=== PATIENT | female | born 2005 | race Caucasian/White ===

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

== ENCOUNTER 2025-06-05 19:14 | Emergency (ER) | payer BC, SELFPAY ==
[2025-06-05 19:15] VITALS: BP 127/90; PULSE 100; RESP 18; TEMP 36.8; O2SAT 99; BMI 38.7
[2025-06-05] MEDS: Ketorolac 30 MG/ML Syringe IM (20:46)
--- OUTSIDE RECORDS SUMMARY | 2025-06-05 21:01 | XMS RPT_ITS | CCD ---
Author Organization [facility] Care Team Providers Care Gateman Name Role Phone NATALY THORPE DO Primary Care Physician [phone] Nataly Thorpe DO Primary Care Provider [phone] Nataly Thorpe DO Primary Care Provider NATALY THORPE Primary Care Unavailable CARISA REECE Attending Unavailable CARISA REECE Referring Unavailable CARISA REECE Attending Unavailable NATALY THORPE Primary Care Unavailable CARISA REECE Referring Unavailable CARISA REECE Attending Unavailable NATALY THORPE Primary Care Unavailable OREN REECEANDA Jeffy Referring Unavailable NATALY THORPE Primary Care Unavailable CARISA REECE Attending Unavailable OREN REECEANDA Jeffy Referring Unavailable NATALY THORPE Primary Care Unavailable LUIZ ANAYA Referring Unavailable CARISA REECE Attending Unavailable NATALY THORPE Primary Care Unavailable LUIZ ANAYA Attending Unavailable LUIZ ANAYA Referring Unavailable LOYDA MENA Attending Unavailab NATALY Roa DO Primary Care Unavailable NAGI STEPHENS DO Attending Unavailable NATALY THORPE DO Primary Care Unavailable ALCON MARTIN MD Attending Unavail able NATALY THORPE DO Primary Care Unavailable BOLA TERRAZAS DO Attending Unavailable NATALY THORPE DO Primary Care Unavailable RICH NEWTON Attending UnavailNATALY Escalante DO Primary Care Unavailable ELLIOT VÁZQUEZ Attending NATALY Lambert DO Primary Care Unavailable LOYDA MENA Attending Unavailab le MAURILIO DO, NATALY Primary Care Unavailable Maurilio , Nataly F Primary Care Provider NATALY THORPE F Primary Care Unavailable NATALY THORPE F Primary Care Unavailable NATALY THORPE F Primary Care Unavailable Maurilio NAIK, Dr. Rodriguez Primary Care Provider [phone] Aruna NAIK, Dr. Knapp Emergency Provider [phone] Aruna NAIK, Dr. Knapp Attending Provider [phone] Maurilio NAIK, Dr. Rodriguez Referring Provider April García Attending Provider [phone] April García Referring Provider [phone] Tim Matias Attending Provider [phone] Maurilio, Nataly Primary Care Unavailable April García Attending Unavailable Maurilio, Nataly Referring Unavailable Maurilio, Nataly Primary Care Unavailable April García Referring Unavailable April García Attending Unavailable Maurilio, Nataly Primary Care Unavailable Ra Valdovinos Attending Unavailable Maurilio, Nataly Referring Unavailable Maurilio, Nataly Primary Care Unavailable Tim Matias Attending Unavailable DITCHEY LUPILLO NAIK Primary Care Physician NHUNGTCHEY DO, LUPILLO M Primary Care Unavailable GURPREET RYAN, AIDAN Amin Attending Fiorella lable MAURILIO DO, NATALY Primary Care Unavailable MAURILIO DONATALY Attending Unavailable DITCHEY DOLUPILLO Attending Unavailable MAURILIO DO, NATALY Primary Care Unavailable DITCHEY DO, LUPILLO M Primary Care Unavailable DITCHEY DO, LUPILLO M Attending Unavailable ELLIOT VÁZQUEZ Attending Unavai lable MAURILIO DO, NATALY Primary Care Unavailable ROBINAESKA JERICHO NAIK Attending Unavailable MAURILIO DO, NATALY Primary Care Unavailable DITCHEY DO, LUPILLO M Attending Unavailable MAURILIO DO, NATALY Primary Care Unavailable DITCHEY DO, LUPILLO M Primary Care Unavailable LOYDA MENA Attending Unavailab le DITCHEY DOLUPILLO Attending Unavailable DITCHEY DOLUPILLO M Primary Care Unavailable Allergies Allergy Classification Reported Allergen(s) Allergy Type Date of Onset Reaction(s) Facility (20 sources) Coconut extract; Translations: [COCONUT] Drug All[facility] 10-[facility]-201 [facility] ([facility]) [place] Food allergy Itching (finding) [facility] (6 sources) peach allergenic extract; Translations: [PRUNUS PERSICA] Drug Allergy 3 [facility]ching [facility] (2 sources) tree nut, unspecified; Translations: [TREE NUT ALLERGY] Propensity to adverse reactions 8 Itching [facility] (1 source) peach allergenic extract; Translations: [PEACH (PRUNUS PERSICA)] Drug Allergy 3 [facility] (3 sources) Food Allergies: Uncoded; Translations: [Food Allergies: Uncoded] Allergy to substance 5 itchy [facility] Comment on above: Peaches NEGATED: Highlighted row has been ruled out! (1 source) Drug allergy [facility] NEGATED: Highlighted row has been ruled out! (1 source) Drug allergy [facility] NEGATED: Highlighted row has been ruled out! (1 source) Drug allergy [facility] Medications Current Medications Medication Drug Class(es) Dates Sig (Normalized) Sig (Original) Tylenol (5 sources) Start: 10-16-2024 Tylenol Oral, 0 Refill(s) Start Date: 10/16/24 Status: Ordered Medication Dispense Status: Completed Total Allowed Fills: 1 Fills Dispensed: 0 Start: 10-16-2024 Tylenol Oral, 0 Refill(s) Start Date: 10/16/24 Status: Ordered Repeat number: 1 brompheniramine maleate 0.4 mg/ml / dextromethorphan hydrobromide 2 mg/ml / pseudoephedrine hydrochloride 6 mg/ml oral solution (2 sources) alpha-Adrenergic Agonist, Uncompetitive F-pugeue-J-aspartate Receptor Antagonist, Sigma-1 Agonist Start: 08-02-2024 take 5 mL by mouth four times daily as needed Yhbjcztmubrltqs-Yijeaejto-HL (BROMFED DM) 2-30-10 mg/5 mL syrup Indications: Viral URI with cough , Fever, unspecified fever cause Take 5 mL by mouth four times a day as needed. 118 mL 08/02/2024 Active cyclobenzaprine hydrochloride 10 mg oral tablet (2 sources) Muscle Relaxant Start: 10-16-2024 cyclobenzaprine 10 mg oral tablet Dose : 10 mg = 1 tab(s), Oral, TID, PRN for spasm, # 30 tab(s), 0 Refill(s), Pharmacy: [facility]/pharmacy #[id number], Lumbar back pain, 168, cm, 10/16/24 9:31:00 EDT, Height, kg, 10/16/24 9:31:00 EDT, Dosing Weight Start Date: 10/16/24 Status: Ordered Quantity: 30.0 Unit: tab(s) Repeat number: 1 Indications: Low back pain, unspecified; Start: 06-21-2023 End: 06-26-2023 cyclobenzaprine 5 mg oral ta blet Dose : 5 mg = 1 tab(s), Oral, TID, X 5 day(s), # 15 tab(s), 0 Refill(s), 06/26/23 8:37:00 AM EST Start Date: 06/21/23 Stop Date: 06/26/23 Status: Ordered diclofenac sodium 75 mg delayed release oral tablet (1 source) Nonsteroidal Anti-inflammatory Drug Start: 02-07-2024 diclofenac sodium 75 mg oral delayed release tablet Dose : 75 mg = 1 tab(s), Oral, BID, # 60 tab(s), 0 Refill(s), Pharmacy: [facility]/pharmacy #[id number], Contusion of left forearm, 165.5, cm, 02/07/24 10:43:00 EDT, Height, kg, 02/07/24 10:43:00 EDT, Dosing Weight Start Date: 02/07/24 Status: Ordered doxycycline hyclate 100 mg oral capsule (1 source) Tetracycline-class Drug Start: 11-07-2023 End: 11-14-2023 doxycycline hyclate 100 mg oral capsule Dose : 100 mg = 1 cap(s), Oral, BID, X 7 day(s), # 14 cap(s), 0 Refill(s), 11/14/23 3:51:00 PM EDT, Pharmacy: [facility] #[id number], Chlamydia, 166, cm, 11/02/23 16:50:00 EDT, Height, 71.6, kg, 11/02/23 16:50:00 EDT, Dosing Weight Start Date: 11/07/23 Stop Date: 11/14/23 Status: Ordered elderberry gummies (2 sources) Start: 04-06-2021 elderberry gummies elderberry gummies, 0 Refill(s), 67.6 Start Date: 04/06/21 Status: Ordered emergen c (2 sources) Start: 04-06-2021 emergen c emergen c, 0 Refill(s), 67.6 Start Date: 04/06/21 Status: Ordered fexofenadine hydrochloride 180 mg oral tablet (20 sources) Histamine-1 Receptor Antagonist Start: 09-18-2020 Erica 24 Hour Allergy oral tablet Dose : 180 mg = 1 tab(s), Oral, Daily, PRN for allergy symptoms, # 10 tab(s), 0 Refill(s) Start Date: 08/15/22 Status: Ordered Medication Dispense Status: Completed Quantity: 10.0 Unit: tab(s) Total Allowed Fills: 1 Fills Dispensed: 0 Comment on above: 180 mg. fludrocortisone acetate 0.1 mg oral tablet (7 sources) Start: 10-29-2024 take 1 tablet by mouth three times weekly Fludrocortisone 0.1 mg tablet Active 0.1 mg PO 3 TIMES A WEEK October 29, 2024 12:00am Start: 06-02-2023 fludrocortison e 0.1 mg oral tablet Dose : 0.1 mg = 1 tab(s), Oral, Daily, # 30 tab(s), 0 Refill(s) Start Date: 06/02/23 Status: Ordered fluticasone propionate 0.05 mg/actuat metered dose nasal spray (3 sources) Corticosteroid Start: 02-17-2025 End: 03-19-2025 take 100 ug nasal route once daily fluticasone 50 mcg/inh NASAL spray 100 mcg Dose = 2 spray(s), Nostril, each, qDay, shake well before using, # 16 gram(s), 0 Refill(s), Pharmacy: [facility]/pharmacy #[id number], Viral URI, 167, cm, 08/25/25 9:02:00 EDT, Height, kg, 02/17/25 9:02:00 EDT, Dosing Weight Start Date: 02/17/25 Stop Date: 03/19/25 Status: Ordered Medication Dispense Status: Completed Quantity: 16.0 Unit: g Total Allowed Fills: 1 Fills Dispensed: 0 Indications: Acute upper respiratory infection, unspecified; Melatonin (10 sources) Start: 02-06-2025 melatonin 0 Refill(s) Start Date: 02/06/25 Status: Ordered Medication Dispense Status: Completed Total Allowed Fills: 1 Fills Dispensed: 0 Start: 10-29-2024 Melatonin 5 mg capsule Active mg PO October 29, 2024 12:00am MELATONIN ORAL T jase by mouth. as necessary Active MELATONIN ORAL T jase by mouth. as necessary 0 Active Comment on above: Take by mouth. as ne cessary naproxen 250 mg oral tablet (1 source) Nonsteroidal Anti-inflammatory Drug Start: 06-21-2023 End: 06-26-2023 naproxen 250 mg oral tablet Dose : 250 mg = 1 tab(s), Oral, BID, X 5 day(s), # 10 tab(s), 0 Refill(s), 06/26/23 8:36:00 AM EST Start Date: 06/21/23 Stop Date: 06/26/23 Status: Ordered nitrofurantoin, macrocrystals 25 mg / nitrofurantoin, monohydrate 75 mg oral capsule (1 source) Nitrofuran Antibacterial Start: 10-10-2023 End: 10-15-2023 Macrobid 100 mg oral capsule Dose : 100 mg = 1 cap(s), Oral, BID, Take with food, X 5 day(s), # 10 cap(s), 0 Refill(s), 10/15/23 1:32:00 PM EDT, Pharmacy: [facility] #[id number], UTI (urinary tract infection), 165, cm, 10/10/23 13:00:00 EDT, Height, 70.8, kg, 10/10/23 13:00:00 EDT, Dosing Weight Start Date: 10/10/23 Stop Date: 10/15/23 Status: Ordered omeprazole 40 mg delayed release oral capsule (2 sources) Proton Pump Inhibitor Start: 02-06-2025 omeprazole 40 mg oral delayed release capsule Dose : 40 mg = 1 cap(s), Oral, qDay, # 90 cap(s), 3 Refill(s), Pharmacy: [facility], GERD without esophagitis, 166.9, cm, 02/06/25 14:16:00 EDT, Height, kg, 02/06/25 14:16:00 EDT, Dosing Weight Start Date: 02/06/25 Status: Ordered Medication Dispense Status: Completed Quantity: 90.0 Unit: cap(s) Total Allowed Fills: 4 Fills Dispensed: 0 Indications: Gastro-esophageal reflux disease without esophagitis; 12 hr orphenadrine citrate 100 mg extended release oral tablet (1 source) Muscle Relaxant Start: 06-28-2023 End: 07-05-2023 orphenadrine 100 mg oral tablet, extended release Dose : 100 mg = 1 tab(s), Oral, BID, PRN as needed for pain, X 7 day(s), # 14 tab(s), 0 Refill(s), 07/05/23 8:58:00 AM EST, Pharmacy: [facility] #[id number], Right shoulder pain Cervicalgia, 165, cm, 06/28/23 8:04:00 EST, Height, kg, 06/28/23 8:04:00 EST, Dosing Weight Start Date: 06/28/23 Stop Date: 07/05/23 Status: Ordered oxymetazoline hydrochloride 0.5 mg/ml nasal spray (2 sources) Start: 08-02-2024 oxymetazoline (AFRIN, OXYMETAZOLINE,) 0.05 % nasal spray Indications: Viral URI with cough , Fever, unspecified fever cause Use 2-3 Sprays in each nostril two times a day. Use as directed. For a maximum of 3 (three) days. 22 mL 08/02/2024 Active predniSONE 10 mg oral tablet (2 sources) Start: 02-28-2025 predniSONE 10 mg oral tablet See Instructions, 60 mg Oral qDay x1day, then 50mg x1day, then 40mg x1day, then 30mg x1day, then 20mg x1day, then 10 mg x1day., # 21 tab(s), 0 Refill(s), Pharmacy: [facility]/pharmacy #[id number], Left shoulder pain Radiculopathy of arm, 167, cm, 02/28/25 15:08:00 EDT, Height, kg, 02/28/25 15:08:00 EDT, Dosing Weight Start Date: 02/28/25 Status: Ordered Medication Dispense Status: Completed Quantity: 21.0 Unit: tab(s) Total Allowed Fills: 1 Fills Dispensed: 0 Indications: Radiculopathy, site unspecified; Pain in left shoulder; Start: 06-28-2023 End: 07-03-2023 predniSONE 20 mg oral tablet Dose : 40 mg = 2 tab(s), Oral, qDay, Take with food, X 5 day(s), # 10 tab(s), 0 Refill(s), 07/03/23 8:58:00 AM EST, Pharmacy: [facility] #[id number], Right shoulder pain Cervicalgia, 165, cm, 06/28/23 8:04:00 EST, Height, kg, 06/28/23 8:04:00 EST, Dosing Weight Start Date: 06/28/23 Stop Date: 07/03/23 Status: Ordered raNITIdine (15 sources) Histamine-2 Receptor Antagonist Start: 06-20-2022 Zantac 360 Oral, as needed., 0 Refill(s) Start Date: 06/20/22 Status: Ordered RANITIDINE HCL ( ZANTAC 75 ORAL) Take by mouth. as necessary Active take 1 tablet by aysha th once daily as needed for gastroesophageal reflux disease ranitidine (ZANTAC) 75 MG tablet Take 1 Tablet (75 mg) by mouth daily as needed for Heartburn 0 Active RANITIDINE HCL ( ZANTAC 75 ORAL) Take by mouth. as necessary 0 Active Comment on above: Take by mouth. as ne cessary Walking boot, concise (1 source) Start: 02-20-2024 Walking boot, concise See Instructions, Dispense 1 walking boot of appropriate size for left foot., # 1 EA, 0 Refill(s), Pharmacy: [id number], Sprain of left ankle, 165.5, cm, 02/20/24 15:14:00 EDT, Height, 77.7, kg, 02/20/24 15:14:00 EDT, Dosing Weight Start Date: 02/20/24 Status: Ordered Zinc (2 sources) Start: 04-06-2021 take 1 mg by mouth once daily Zinc mg =, Oral, qDay, 0 Refill(s) Start Date: 04/06/21 Status: Ordered Completed/Discontinued Medications Medication Drug Class(es) Dates Sig (Normalized) Sig (Original) bacitracin 0.5 unt/mg topical ointment (2 sources) Start: 07-12-2024 End: 07-12-2024 bacitracin 500 unit/gram 1 Packet Start: 07-12-2024 End: 07-12-2024 1 Packet, TOPICAL, ONCE, 1 d ose, On Mon07/12/24 at 1600, FOR EXTERNAL USE ONLY APPLY TO: right index finger Ethinyl Estradiol / norgestimate (5 sources) Progestin, Estrogen Start: 04-12-2021 End: 07-12-2024 ESTARYLLA 0.25-35 mg-mcg per tablet 04/12/2021 07/12/2024 Discontinued (Course of therapy completed) Start: 04-12-2021 ESTARYLLA 0.25 -35 mg-mcg per tablet Start: 03-22-2021 take 1 tablet by aysha once daily ethinyl estradiol-norgestimate 35 mcg-0.25 mg oral tablet Dose = 1 tab(s), Oral, qDay, # 30 tab(s), 0 Refill(s), Pharmacy: [address], Contraception management Acne, 165, cm, 02/22/21 15:29:00 EDT, Height, kg, 02/22/21 15:29:00 EDT, Dosing Weight Start Date: 03/22/21 Status: Ordered ethosuximide 250 mg oral capsule (2 sources) Anti-epileptic Agent End: 07-12-2024 take 1 capsule by mouth twice daily ethosuximide (ZARONTIN) 250 mg capsule Take 250 mg by mouth twice daily. 07/12/2024 Discontinued (Course of therapy completed) Comment on above: Take 250 mg by mouth twice daily. ISOtretinoin 30 mg oral capsule (3 sources) Retinoid Start: 04-28-2021 End: 07-12-2024 take 1 capsule by mouth once daily ISOtretinoin 30 mg capsule take 1 capsule by mouth once daily WITH FATTY FOODS 04/28/2021 07/12/2024 Discontinued (Course of therapy completed) Comment on above: take 1 capsule by mo uth once daily WITH FATTY FOODS spironolactone 100 mg oral tablet (5 sources) Aldosterone Antagonist Start: 12-30-2020 End: 07-12-2024 spironolactone (ALDACTONE) 100 mg tablet 100 mg. 12/30/2020 07/12/2024 Discontinued (Course of therapy completed) Comment on above: 100 mg. Problems Active Problems Problem Classification Problem Date Documented Date Episodic/Chronic Adjustment disorders (2 sources) Adjustment disorder with mixed disturbance of emotions AND conduct; Translations: [Adjustment disorder with mixed disturbance of emotions and conduct] Onset: 09-26-2017 09-26-2017 Chronic Attention-deficit, conduct, and disruptive behavior disorders (1 source) Disruptive behavior disorder; Translations: [Conduct disorder, unspecified] Onset: 09-26-2017 09-26-2017 Chronic Cardiac dysrhythmias (2 sources) Postural orthostatic tachycardia syndrome ; Translations: [Postural orthostatic tachycardia syndrome] 10-29-2024 Chronic Conditions associated with dizziness or vertigo (1 source) Dizziness; Translations: [Dizziness and giddiness] 01-19-2023 Episodic E Codes: Unspecified (3 sources) Accident while engaged in work-related activity; Translations: [Civilian activity done for income or pay] 10-22-2024 Episodic Epilepsy; convulsions (6 sources) Epilepsy 06-18-2024 Chronic Epilepsy; convulsions (13 sources) Seizure disorder 01-03-2019 Episodic Esophageal disorders (3 sources) Gastroesophageal reflux disease without esophagitis 02-06-2025 Chronic Fever of unknown origin (2 sources) Fever; Translations: [Fever, unspecified] 07-28-2024 Episodic Immunizations and screening for infectious disease (4 sources) Encounter for screening for infections with a predominantly sexual mode of transmission; Translations: [Requires a tetanus booster] Onset: 11-03-2023 Episodic Miscellaneous mental health disorders (1 source) Mental disorder; Translations: [Mental disorder, not otherwise specified] Onset: 12-18-2019 12-18-2019 Chronic Neoplasms of unspecified nature or uncertain behavior (19 sources) Thrombocytosis 12-30-2020 Chronic Open wounds of extremities (1 source) Puncture wound of index finger of right hand; Translations: [Puncture wound without foreign body of right index finger without damage to nail, initial encounter] 07-12-2024 Episodic Other connective tissue disease (1 source) Plantar fascial fibromatosis; Translations: [Plantar fascial fibromatosis] Onset: 02-25-2024 Episodic Other connective tissue disease (1 source) Pain in finger of right hand; Translations: [Pain in right finger(s)] Onset: 08-17-2024 Episodic Other connective tissue disease (6 sources) Pain in finger 08-17-2024 Episodic Other inflammatory condition of skin (12 sources) Pityriasis rosea 01-29-2019 Chronic Other injuries and conditions due to external causes (1 source) Unspecified injury of unspecified lower leg, initial encounter; Translations: [Unspecified injury of unspecified lower leg, initial encounter] Onset: 10-27-2024 Episodic Other nervous system disorders (20 sources) Tremor 01-03-2019 Episodic Other non-traumatic joint disorders (12 sources) Decreased range of toe movement 12-30-2020 Episodic Other skin disorders (19 sources) Acne 09-18-2020 Episodic Other upper respiratory disease (1 source) Nasal congestion; Translations: [Nasal congestion] 07-28-2024 Episodic Other upper respiratory infections (20 sources) Sore throat symptom; Translations: [Acute pharyngitis, unspecified] Onset: 03-02-2023 Episodic Residual codes; unclassified (14 sources) Insomnia 07-13-2022 Episodic Residual codes; unclassified (2 sources) Immunization due 07-17-2023 Episodic Residual codes; unclassified (1 source) Pain, unspecified; Translations: [Pain, unspecified] Onset: 11-08-2024 Episodic Spondylosis; intervertebral disc disorders; other back problems (13 sources) Neck pain; Translations: [Low back pain] 02-07-2024 Episodic Sprains and strains (12 sources) Sprain of talofibular ligament of right ankle; Translations: [Sprain of other ligament of right ankle, subsequent encounter] Onset: 01-25-2018 01-25-2018 Episodic Unclassified (20 sources) Patient encounter status 09-18-2020 Unclassified (2 sources) Well female adolescent 07-07-2021 Unclassified (7 sources) Pain of right shoulder region 06-28-2023 Unclassified (1 source) Injury of shoulder and/or upper arm 02-07-2024 Unclassified (1 source) Sprain of left ankle 02-20-2024 Unclassified (4 sources) Sprain of right ankle; Translations: [S93.401A - Sprain of unspecified ligament of right ankle, initial encounter] Viral infection (6 sources) Verruca vulgaris 06-18-2024 Episodic Past or Other Problems Problem Classification Problem Date Documented Da te Episodic/Chronic Genitourinary symptoms and ill-defined conditions (2 sources) Painful micturition, unspecified; Translations: [Painful micturition, unspecified] Onset: 11-03-2023 Episodic Other inflammatory condition of skin (2 sources) Pruritus ani; Translations: [Pruritus ani] Onset: 11-21-2024 Episodic Other non-traumatic joint disorders (5 sources) Instability of joint of right ankle; Translations: [Other instability, right ankle] Onset: 01-25-2018 01-25-2018 Episodic Results Test Name Value Interpretation Reference Range Facility XR SPINE CERVICAL AP/LATon 0 03-08-2025 XR SPINE CERVICAL AP/LAT ORIGINAL EXAMINATION: TWO XRAY VIEWS OF THE CERVICAL SPINE 03/07/2025 9:48 am COMPARISON: None. HISTORY: ORDERING SYSTEM PROVIDED HISTORY: Reason for Exam: neck pain FINDINGS: There is no evidence of acute fracture. There is normal alignment. No acute joint abnormality. No focal osseous lesion. No focal soft tissue abnormality. IMPRESSION: No acute osseous abnormality. Interpreted by: Rob Griffin DO Preliminary Report By: Rob Griffin DO Electronically signed By Rob Griffin DO Dictated Date: 03/08/2025 9:02:44 AM Prelim Date: 03/08/2025 9:02:56 AM Sign Date: 03/08/2025 9:02:56 AM Ordering Provider: LUPILLO Harrington [facility] XR SHOULDER MINIMUM 2 VIEWS LEFTon 03-01-2025 XR SHOULDER MINIMUM 2 VIEWS LEFT ORIGINAL EXAMINATION: TWO XRAY VIEWS OF THE LEFT SHOULDER 02/28/2025 4:28 pm COMPARISON: None. HISTORY: ORDERING SYSTEM PROVIDED HISTORY: Reason for Exam: left shoulder pain, radiculopathy left arm FINDINGS: No evidence of fracture, or osseous malalignment, or arthritic process at the left shoulder including glenohumeral joint and the left AC joint. IMPRESSION: Normal radiographs of left shoulder. Interpreted by: Terry Horne Preliminary Report By: Terry Horne Electronically signed By Terry Horne Dictated Date: 03/01/2025 4:34:29 AM Prelim Date: 03/01/2025 4:36:39 AM Sign Date: 03/01/2025 4:36:39 AM Ordering Provider: AIDAN VÁZQUEZ Normal [facility] CVAracely 02-17-2025 FLU A PCR Negative Normal Negative [facility] Comment on above: Performed By: #### C VFLURV, STREPA #### [place] [address] FLU B PCR Negative Normal Negative [facility] Comment on above: Performed By: #### C VFLURV, STREPA #### [address] [address] RSV PCR Negative Normal Negative [facility] Comment on above: Performed By: #### C VFLURV, STREPA #### [place] [address] SARS-CoV-2 (COVID-19) RNA AMRIT+probe Ql (Unsp spec) Negative Normal Negative [facility] Comment on above: Result Comment: Resu lts from the Xpert Xpress CoV-2/Flu/RSV plus test should be correlated with the clinical history, epidemiological data, and other data available to the clinical evaluating the patient. Performance of the Xpert Xpress CoV-2/Flu/RSV plus test has only been established in nasopharyngeal swab specimen. Erroneous test results might occur from improper specimen collection, failure to follow the recommended sample collection, handling and storage procedures, technical error, or sample mix-up. False negative results may occur if a virus is present at a level below the analytical limit of detection. Viral nucleic acid may persist in vivo, independent of virus viability. Detection of analyte target(s) does not imply that the corresponding virus(es) are infectious or are the causative agents for clinical symptoms. Recent patient exposure to FluMist or other live attenuated influenza vaccines may cause inaccurate positive results. Performed By: #### C VFLURV, STREPA #### [address] [place] [address] LABORATORYOrdered By: Norman mckinney on 02-17-2025 FLUAV RNA AMRIT+probe Ql (Resp) Negative (02/17/25 9:23 AM) Normal AO Auto Urine SS FLUBV RNA AMRIT+probe Ql (Resp) Negative (02/17/25 9:23 AM) Normal AO Auto Urine SS Group A Strep PCR Int See Interp 2 *NA* (02/17/25 9:23 AM) Invalid Interpretation Code AO Auto Urine SS Comment on above: Result Comment: Clinical Interpretation: Negative Results: Negative for Streptococcus pyogenes by PCR. A negative test result does not exclude the possibility of infection because the test result may be affected by improper specimen collection, technical error, sample mix-up, or because the number of organisms in the sample is below the limit of detection of the test. The Xpert Xpress Strep A test should not be used as the sole basis for treatment or other patient management decisions. The Xpert Xpress Strep A test does not differentiate asymptomatic carriers of Group A streptococci from those exhibiting streptococcal infection. The results from the Xpert Xpress Strep A test should be interpreted in conjunction with other laboratory and clinical data available to the clinician. The Xpert Xpress Strep A Assay is a real-time polymerase chain reaction (PCR) based qualitative in vitro diagnostic test for the direct detection of Streptococcus pyogenes (Group A Beta hemolytic Streptococcus) in throat swab specimens from patients with signs and symptoms of pharyngitis. The assay is not intended to monitor treatment for Group A Streptococcus infections. RSV RNA AMRIT+probe Ql (Resp) Negative (02/17/25 9:23 AM) Normal AO Auto Urine SS S. pyogenes DNA AMRIT+probe Ql (Throat) Not Detected (02/17/25 9:23 AM) Normal AO Auto Urine SS SARS-CoV-2 (COVID-19) RNA AMRIT+probe Ql (Resp) Negative 1 (02/17/25 9:23 AM) Normal AO Auto Urine SS Comment on above: Interpretive Data: R esults from the Xpert Xpress CoV-2/Flu/RSV plus test should be correlated with the clinical history, epidemiological data, and other data available to the clinical evaluating the patient. Performance of the Xpert Xpress CoV-2/Flu/RSV plus test has only been established in nasopharyngeal swab specimen. Erroneous test results might occur from improper specimen collection, failure to follow the recommended sample collection, handling and storage procedures, technical error, or sample mix-up. False negative results may occur if a virus is present at a level below the analytical limit of detection. Viral nucleic acid may persist in vivo, independent of virus viability. Detection of analyte target(s) does not imply that the corresponding virus(es) are infectious or are the causative agents for clinical symptoms. Recent patient exposure to FluMist or other live attenuated influenza vaccines may cause inaccurate positive results. STREPAon 02-17-2025 Group A Strep PCR Not detected Normal Not Detected [facility] Comment on above: Performed By: #### C VFLURV, STREPA #### [address] [address] Group A Strep PCR Int See Interp Normal [facility] Comment on above: Result Comment: Clinical Interpretation: Negative Results: Negative for Streptococcus pyogenes by PCR. A negative test result does not exclude the possibility of infection because the test result may be affected by improper specimen collection, technical error, sample mix-up, or because the number of organisms in the sample is below the limit of detection of the test. The Xpert Xpress Strep A test should not be used as the sole basis for treatment or other patient management decisions. The Xpert Xpress Strep A test does not differentiate asymptomatic carriers of Group A streptococci from those exhibiting streptococcal infection. The results from the Xpert Xpress Strep A test should be interpreted in conjunction with other laboratory and clinical data available to the clinician. The Xpert Xpress Strep A Assay is a real-time polymerase chain reaction (PCR) based qualitative in vitro diagnostic test for the direct detection of Streptococcus pyogenes (Group A Beta hemolytic Streptococcus) in throat swab specimens from patients with signs and symptoms of pharyngitis. The assay is not intended to monitor treatment for Group A Streptococcus infections. Performed By: #### C VFLURV, STREPA #### [address] [address] Urgent Care Visit Reporton 0 11-21-2024 Urgent Care Visit Report [facility] [address], [address] [place], [place] [address] OFFICE VISIT Date of Service: 11/21/24 MR#: [id number] Acct: [id number] Name: KATHRYN GOMES Rep #: [id number] : 2005 Provider: DIVINA Huff Age/Sex: 19/F Location: [facility] Status: Signed Intake Vital Signs 10/22/24 11:40 11/21/24 15:48 Height 5 ft 4 in BP 122/84 H Blood Pressure Location Lt brachial Position Sitting Respiration 16 Pulse 96 Pulse Source NIBP Temp 98.4 F Temp Source Oral Pulse Oximetry (%) 97 Oxygen Delivery Method room air Intake Visit Reasons: RELEASE TO GO BACK TO WORK Chief Complaint: WC f/u right ankle, RTW Signal Wirer Required: No Is patient in pain?: No Allergies coconut Allergy (Verified 11/21/24 15:48) itchy Food Allergies: Uncoded Allergy (Verified 11/21/24 15:48) itchy Is last menstrual period known: No Post menopausal: No Patient : No PFSH Medical History Seizures Family History (Updated 10/29/24 @ 13:09 by Elizabeth Cordova MA) Brother No problems noted. Mother Diabetes Other Heart disease Social History Smoking Status: Never smoker HPI HPI Chief Complaint: WC f/u right ankle, RTW Details: KATHRYN GOMES, is a 19 F who presents to the office today for follow-up of a work-related injury which occurred on 10/22/2024. Patient today states that her right ankle pain has nearly completely resolved with only some minor twinging of pain when she turns in certain ways. She is requesting return to work without restrictions at this time. She denies numbness, tingling or loss of range of motion to the ankle. No other associated symptoms or alleviating/aggravating factors. ROS Const Constitutional: No other (As above) Exam Const General: cooperative, healthy appearing and no acute distress Skin General: no rashes or lesions noted Neuro General: patient alert and patient awake Extrem General: normal to inspection, full ROM and capillary refill normal Psych Appearance: grossly normal Coding Level of Care Code Off vis,est,level 3 Diagnoses Right ankle sprain S93.401A Assessment and Plan Assessment and Plan (1) Right ankle sprain: Status: Inactive Plan: [employer] 14 filled out releasing patient back to work today without restrictions per her request. Patient advised to continue with at home stretches as previously advised and use ibuprofen or Tylenol as needed for pain unless contraindicated. Patient verbalized understanding and agreement with all the above. 11/21/24 1601 Date Tim Sanders Signature: Date (if applicable) CC: Normal [facility] OVAPon 11-15-2024 Ova + Parasite Status Not performed [facility] Comment on above: Result Comment: Test not performed. No Ova / Parasite transport containers received. Received raw stool These results were obtained using wet preparation(s) and trichrome stained smear. This test does not include testing for Cryptosporidium parvum, Cyclospora, or Microsporidia. Performed At: [address] [id number] Isaias Márquez PhD Ph:[phone] Performed By: #### 0 [id number] #### [place] [address] LABORATORYOrdered By: [email or web address] P CONTRIBUTOR_SYSTEM on 11-14-2024 Ova + Parasite Status (LC) Not performed Invalid Interpretation Code AO [facility] Comment on above: Result Comment: Test not performed. No Ova / Parasite transport containers received. Received raw stool These results were obtained using wet preparation(s) and trichrome stained smear. This test does not include testing for Cryptosporidium parvum, Cyclospora, or Microsporidia. Performed At: [facility] [address] [place], [place] [id number] Isaias Márquez PhD Ph:[phone] Ankle min 3 Viewson 10-30-19 25 Ankle min 3 Views [facility] [address] [place] [address] Ankle min 3 Views MR#: [id number] Acct: [id number] Name: KATHRYN GOMES Rep #: [id number] : 2005 F 19 From: William Marlow PCP: Dr. Nataly Thorpe DO Status: REG CLI Study: Ankle min 3 Views Date of Exam: 10/29/24 Exam# [id number] Ordering Dr: April Pack PROCEDURE: ANKLE MIN 3 VIEWS 10/29/2024 REASON FOR EXAM: PAIN TECHNIQUE: 3 views of the right ankle COMPARISON: Right ankle 10/22/2024. RAD/Ankle min 3 Views IMPRESSION: Mild residual soft tissue swelling is seen over the lateral malleolus. ON THE LATERAL VIEW, NORMAL CONTOUR OF THE ACHILLES TENDON IS SEEN. NO ANKLE JOINT EFFUSION IS NOTED. THE ANKLE MORTISE APPEARS INTACT. No fracture or dislocation is seen. No arthritic process is noted. Reading Location: [facility] CC: Dr. Nataly Thorpe DO; DIVINA Murrell Food Order Delivery Runner: Signed Normal [facility] Urgent Care Visit Reporton 0 10-29-2024 Urgent Care Visit Report [facility] [address], [address] [place] [address] OFFICE VISIT Date of Service: 10/29/24 MR#: [id number] Acct: [id number] Name: KATHRYN GOMES Rep #: [id number] : 2005 Provider: DIVINA Murrell Age/Sex: 19/F Location: [facility] Status: Signed Intake Vital Signs 10/22/24 11:40 10/29/24 13:18 Height 5 ft 4 in BP 126/86 H Position Sitting Pulse 88 Temp 98.4 F Temp Source Oral Pulse Oximetry (%) 98 Oxygen Delivery Method room air Intake Visit Reasons: R ANKLE INJURY ER FU / [facility] Accompanied by: Self Allergies coconut Allergy (Verified 10/29/24 13:08) itchy Food Allergies: Uncoded Allergy (Verified 10/29/24 13:08) itchy Medications ???Medication ???Instructions ???Recorded ???Confirmed ???Type fludrocortisone 0.1 mg tablet 0.1 mg PO 3XW 10/29/24 10/29/24 Hi story melatonin 5 mg capsule mg PO 10/29/24 10/29/24 History Nurse's Note: Patient here for a [facility] ER f/u. Patient ankle is swollen and still hurts. PFSH Medical History Seizures Family History (Updated 10/29/24 @ 13:09 by Elizabeth Cordova MA) Brother No problems noted. Mother Diabetes Other Heart disease Social History Smoking Status: Never smoker HPI HPI Details: KATHRYN GOMES, is a 19 F who presents to the office today for follow-up status post work-related injury on 10/22/2024, suffering a right lateral ankle sprain while at work. States on her break - walked out of the parking lot came then upon coming back inside she inverted her right ankle with associated lateral soft tissue swelling appreciated. No other injuries. Has sprained her ankle in the past. Pain with ambulation and prolonged weightbearing. She reported [facility] ED same day where radiographs revealed no acute osseous pathology therefore discharged with a diagnosis of right ankle sprain, given crutches and work restrictions she is here for follow-up today noting persistent pain to the lateral aspect of the right ankle requesting a repeat x-ray to ensure no occult fracture was suffered. She notes no locking or giving way of the same. No right knee/foot complaints. She notes no other associated symptoms and no other alleviating/aggravating factors. ROS Const Constitutional: No other (As above) Exam Const General: cooperative, healthy appearing and no acute distress Orientation: alert and awake Chest Chest palpation inspection: normal inspection of the chest Resp Effort Inspection: normal respiratory effort and able to speak in complete sentences Cardio Rate: regular rate Pulses: radial pulses present Skin General: no rashes or lesions noted Neuro General: patient alert and patient awake Cognition: normal cognition Speech: speech normal Extrem General: normal to inspection, full ROM, capillary refill normal and normal exam except as noted (Trace swelling distal to right lateral malleolus) Other: Right ankle: Repeat radiographs today reveal no acute osseous pathology per my review, pending radiologist interpretation at the time patient discharge. Right ankle assessment reveals a negative drawer and guarded FAROM with pain expression disproportionately higher compared to physical exam findings, no Achilles step-off or palpable tenderness, no plantar fascia tenderness or tissue tension to palpation. Psych Appearance: grossly normal Mental Status: mental status grossly normal Mood: congruent mood Affect: normal affect Speech and Movement: speech and movement normal Attitude: cooperative Coding Level of Care Code Off vis,new,level 4 Diagnoses Right ankle sprain S93.401A Assessment and Plan Assessment and Plan (1) Right ankle sprain: Status: Acute Plan: Repeat right ankle radiographs taken today revealed no acute osseous pathology per my review, pending radiologist interpretation at the time patient discharge. See revised work restrictions as noted on today's [employer] 14. Rest, ice, elevate; continue crutches and stirrup splint to assist ambulate. C9 submitted today for physical therapy to evaluate and treat. Follow-up in the [facility] clinic in 1 week for reevaluation, sooner should symptoms only worsen or any other concerns develop. Patient states acknowledging understanding all the above. This note was generated with Quality Practice dictation software. It may contain incorrect words, spelling, and punctuation that were not noted in checking the note before signing. Orders: Orders Ankle min 3 Views Today R52 - Pain, unspecified Referrals PT Referral S93.401A - Sprain of unspecified ligament of right ankle, initial encounter 10/29/24 1413 Date (more content not included)... Normal [facility] Ankle min 3 Viewson 10-23-19 25 Ankle min 3 Views [facility] [address] [place], [place] [address] Ankle min 3 Views MR#: [id number] Acct: [id number] Name: KATHRYN GOMES Rep #: [id number] : 2005 F 19 From: Norman Sheriff MD PCP: Dr. Nataly Thorpe, Status: PRE ER Study: Ankle min 3 Views Date of Exam: 10/22/24 Exam# [id number] Ordering Dr: Provider,Ed P. PROCEDURE: ANKLE MIN 3 VIEWS (RADANK), 10/22/2024 REASON FOR EXAM: INJURY TECHNIQUE: AP, lateral, and oblique views of the RIGHT ankle were obtained. COMPARISON: None FINDINGS: Fracture/dislocation: None visible. Joint space(s): Preserved. Soft tissues: Lateral malleolar soft tissue swelling. Foreign bodies: None visible. Bone mineralization: Unremarkable. Other: None. RAD/Ankle min 3 Views IMPRESSION: Lateral malleolar soft tissue swelling without visible acute displaced fracture. Reading Location: [id number] CC: Dr. Nataly Thorpe DO; ED PHYSICIAN PROVIDER Food Order Delivery Runner: Signed Normal [facility] Emergency Department Summary on 10-22-2024 Emergency Department Summary [facility] Department [address] [place] [address] Emergency Department Summary 10/22/24 MR#: [id number] Acct: [id number] Name: KATHRYN GOMES Rep #: [id number] : 2005 19 From: Ra Herman PCP: Dr. Nataly Thorpe DO Status:DEP ER Location: ED HPI History of Present Illness Chief Complaint: Lower Extremity Injury Informant: patient Narrative Narrative: Inversion injury right ankle while at work. States on her break level 7 walked out of the parking lot came back in inverted her ankle. No other injuries. Has sprained her ankle in the past. Pain with ambulation. No medications taken. No allergies. No history of gastric ulcers. Prior similar symptoms: Yes PFSH PFSH Medical History Seizures Allergy/AdvReac Type Severity Reaction Status Date / Time No Known Allergies Allergy Verified 10/22/24 11:40 Social History Smoking Status: Never smoker ROS ROS ED Constitutional Constitutional ED: Denies fever(s) Respiratory/Chest Respiratory/Chest: Denies cough Gastrointestinal Gastrointestinal: Denies diarrhea, nausea or vomiting Musculoskeletal Musculoskeletal: Reports extremity pain; Denies back pain or neck pain Integumentary Denies wounds EXAM Physical Exam Const Vital Signs: 10/22/24 11:40 10/22/24 14:53 Temperature 98.4 F 98.4 F Temperature Source Temporal Pulse Rate 78 78 Respiratory Rate 16 16 Blood Pressure 134/78 H 134/78 H Blood Pressure Mean 96 96 Pulse Ox 98 98 Oxygen Delivery Method Room Air Positive well nourished and well developed General Appearance ED: well developed and NAD HEENT Reports moist mucous membranes normocephalic and atraumatic Eyes General Eye ED: Yes normal appearance of both eyes Neck full ROM Chest Wall Chest: Negative for tenderness Resp normal respiratory effort and normal air movement Effort and Inspection: symmetric chest movement; Negative for respiratory distress Cardio regular rate, regular rhythm and no murmurs Peripheral Pulses: pulses 2+ throughout GI normal to inspection, nondistended, normoactive bowel sounds and non-tender Palpation: Negative for guarding or rebound tenderness present Extremity Extremity Narrative: Right lower extremity: No knee tenderness. There is lateral ankle swelling with tenderness. No medial mall tenderness no midfoot or proximal fifth base tenderness. Skin intact. Neuro vas intact. General Extremety ED: Yes edema and tenderness General Extremity: edema Neuro oriented x3 and no sensory deficits noted Sensorium / Orientation: awake and alert Skin no rashes or lesions noted and no wounds MDM MDM MDM Narrative Medical decision making narrative: Interventions / MDM: Differential diagnosis: Sprain Diagnosis considered but do not suspect: Fracture however x-ray negative My EKG interpretation: N/A Imaging independently reviewed and interpreted by myself: 3 view right ankle x-ray: No fracture noted. Soft tissue swelling laterally. External documents reviewed: N/A Test considered but not ordered:N/A ED course: X-ray performed through triage due to busy department. Results interpreted myself and read by radiology no fracture or dislocation noted. Cal wrap Aircast crutches provided started on ibuprofen she will continue [id number] ibuprofen every 6 hours for next 2 days then as needed. Should continue to ice. Appropriate work restrictions were given. Follow-up with occupational health. Re-evaluation: stable Disposition discussed with patient/family/signific ant other: Patient Case discussed with consulting clinician: N/A This note was generated with [employer] dictation software. It may contain incorrect words, spelling, and punctuation that were not noted in checking the note before signing. Radiography Diagnostic Testing: Clinical Impression(s) from Imaging Studies Ankle X-Ray 10/22/24 11:52 IMPRESSION: Lateral malleolar soft tissue swelling without visible acute displaced fracture. Reading Location: [id number] Discharge Plan Triage Chief Complaint: Lower Extremity Injury ED Provider: Ra Valdovinos Dx/Rx/DC Orders Clinical Impression: Right ankle sprain, Work related injury Instructions: ED Sprain Ankle W X Ray Primary Care Provider: Nataly Tohrpe Referrals: Nataly Thorpe DO [Primary Care Provider] - Activity Restrictions/Additional Instructions: X-ray negative for fracture. Cal wrap stirrups crutches for support. Continue ibuprofen 600 mg every 6 hours for next 2 days and as needed. Continue ice and elevate. Restrictions as given. Follow-up with our clin (more content not included)... [facility] XR SPINE LUMBAR AP/LATon XR SPINE LUMBAR AP/LAT ORIGINAL EXAMINATION: AP and lateral 3 XRAY VIEWS OF THE LUMBAR SPINE10/21/2024 9:52 am COMPARISON: None HISTORY: ORDERING SYSTEM PROVIDED HISTORY: Reason for Exam: Lumbar back pain, FINDINGS: L5 seems to be partially sacralized. Otherwise lumbar vertebral body height and alignment is normal. There is no significant disc space narrowing or other degenerative change. No obvious spondylolysis. Symmetric normal SI joints. No sacral lesion. Moderate stool in the colon. IMPRESSION: Sacralized L5. Otherwise negative lumbar spine. Interpreted by: Bar Lane MD Preliminary Report By: Bar Lane MD Electronically signed By Bar Lane MD Dictated Date: 10/22/2024 3:43:01 PM Prelim Date: 10/22/2024 3:43:51 PM Sign Date: 10/22/2024 3:43:51 PM Ordering Provider: ELLIOT RIZVI [facility] XR FINGER 5TH DIGIT 3 VIEWS RIGHTon 08-17-2024 XR FINGER 5TH DIGIT 3 VIEWS RIGHT ORIGINAL EXAMINATION: THREE XRAY VIEWS OF THE RIGHT FINGERS08/17/2024 3:47 pm FINGER RIGHT 3VW COMPARISON: None HISTORY: ORDERING SYSTEM PROVIDED HISTORY: Reason for Exam: injury FINDINGS: The examination is compromised due to contracture of the 5th digit. No definite fracture is identified. IMPRESSION: Compromised by an apparent contracture of the 5th digit. No definite fracture Interpreted by: Rob Buckner MD Preliminary Report By: Rob Buckner MD Electronically signed By Rob Buckner MD Dictated Date: 08/17/2024 3:51:40 PM Prelim Date: 08/17/2024 3:53:00 PM Sign Date: 08/17/2024 3:53:00 PM Ordering Provider: JERICHO GUTIÉRREZ [facility] 08-02-2024 CNOV Office Visit (WALKWA ) KATHRYN GOMES ([id number]) 5 F Date Time Provider Department 08/02/24 12:50 PM CORNELIUS PLUMMER During your visit today, we recorded the following information about you: Temperature Pulse Respiration Blood pressure 98.8 degrees 103/minute 16/minute 137/94 Cornelius Plummer APRN.MANPOWER DEVELOPMENT SPECIALIST MANAGER 08/02/2024 1:34 PM Signed This note was created using HigherNext. Subjective Kathryn Gomes is a 19 year old female. HPI by patient and SO: Kathryn is a 19 year old presenting to the office with the complaint of URI Started approximately Monday Associated symptoms include congestion, runny nose, laryngitis and fever Denies any other concerns Covid Immunization Dates Overdue - Covid-19 Vaccine ( season) Never done No completion, postpone, frequency change, or communication history exists for this topic. Sick contacts: no Smoking history/second hand smoke: no OTC tylenol and IBU No antibiotic use in the last 60 days. ALLERGIES Coconut Hives Candler (Prunus Persi* Itching Family History Reviewed Including Cardiac Diseases, Psychiatric Diseases, AND Substance Abuse Problem: Cervical Cancer Relation: Mother Age of Onset: (Not Specified) Problem: Broken Bones Relation: Father Age of Onset: (Not Specified) Problem: Cancer Relation: Paternal Grandmother Age of Onset: (Not Specified) Problem: Diabetes Relation: Paternal Grandmother Age of Onset: (Not Specified) Problem: Prostate Cancer Relation: Paternal Grandfather Age of Onset: (Not Specified) Social History Tobacco Use Smoking status: Never Passive exposure: Yes Smokeless tobacco: Never Review of Systems Constitutional: Negative for chills and fever. HENT: Positive for congestion, postnasal drip and rhinorrhea. Negative for ear pain and sore throat. Respiratory: Negative for cough. Cardiovascular: Negative for chest pain. Allergic/Immunologic: Negative for immunocompromised state. Hematological: Negative for adenopathy. Objective BP 137/94 Pulse 103 Temp 37.1 ?C (98.8 ?F) Resp 16 SpO2 97% Physical Exam Vitals and nursing note reviewed. HENT: Right Ear: Tympanic membrane and ear canal normal. Left Ear: Tympanic membrane and ear canal normal. Nose: Congestion and rhinorrhea present. Mouth/Throat: Pharynx: Uvula midline. Posterior oropharyngeal erythema present. No oropharyngeal exudate. Cardiovascular: Rate and Rhythm: Normal rate and regular rhythm. Heart sounds: Normal heart sounds. Pulmonary: Effort: Pulmonary effort is normal. No respiratory distress. Breath sounds: Normal breath sounds. No stridor. No wheezing, rhonchi or rales. Chest: Chest wall: No tenderness. Lymphadenopathy: Cervical: No cervical adenopathy. Skin: General: Skin is warm and dry. Neurological: Mental Status: She is alert and oriented to person, place, and time. Assessment and Plan ASSESSMENT/PLAN: 1. Viral URI with cough - ICD9: 465.9, ICD10: J06.9 (primary diagnosis) - Discussed viral etiology and rationale for treatment. - Symptomatic treatment with prn analgesia - Supportive care with fluids and rest - COVID AND INFLUENZA A/B AND RSV PCR, ROUTINE - BROMPHENIRAMINE-PSEUDOE PHEDRINE-DM 2 MG-30 MG-10 MG/5 ML ORAL SYRUP - OXYMETAZOLINE 0.05 % NASAL SPRAY 2. Fever, unspecified fever cause - ICD9: 780.60, ICD10: R50.9 - COVID AND INFLUENZA A/B AND RSV PCR, ROUTINE - BROMPHENIRAMINE-PSEUDOE PHEDRINE-DM 2 MG-30 MG-10 MG/5 ML ORAL SYRUP - OXYMETAZOLINE 0.05 % NASAL SPRAY Cornelius Plummer APRN.MANPOWER DEVELOPMENT SPECIALIST MANAGER Medical Decision Making: Problems: Moderate: New problem with uncertain prognosis Data: Unique test result(s) reviewed: 2 Unique test(s) ordered: 3+ Risk: Moderate: Drug management Medical Decision Making Level: 4 - Moderate Cornelius Plummer APRN.CNP 08/02/2024 1:34 PM Addendum UPPER RESPIRATORY INFECTIONS Most cases are caused by viruses and most cases are mild, temporary, and harmless. Symptoms can last 2 to 3 weeks and can include: nasal congestion, sore throat, coughing, muscles aches, headaches, nausea, diarrhea, fatigue and fever. Rhinovirus, RSV, Covid, Influenza A and B, Parainfluenza are just a few COMMON respiratory viruses that cause sinus symptoms and cough. Antibiotics do NOT treat viruses. Taking 1 round of antibiotics can destroy your gut normal radha (good bacteria) for up to 6 months. This can affect your weight, skin, digestion, mental health and immune system. 1. Drink plenty of fluids. 2. Get lots of rest. 3. Avoid dehydrants such as caffeine and alcohol. 4. Nasal saline is an effective decongestant and be used frequently throughout the day. 5. To loosen phlegm and help coughing, drink plenty of fluids and using a humidifier. 6. For (more content not included)... Normal [facility] CNOVon 07-28-2024 CNOV Office Visit (WALKWA ) KATHRYN GOMES ([id number]) 5 F Date Time Provider Department 07/28/24 9:05 AM HERRERA CAMACHO During your visit today, we recorded the following information about you: Temperature Pulse Blood pressure Weight 96.7 degrees 100/minute 116/82 97.1 kg Herrera Camacho PA-C 07/28/2024 10:03 AM Signed Subjective Kathryn Gomes is a 19 year old female with no significant past medical history who presents to [facility] care today for evaluation of nasal congestion, sore throat, and fever that began yesterday. Patient states that she has been exposed to norovirus and RSV. No known exposure to COVID-19 or influenza. Review of Systems Constitutional: Positive for fever. Negative for chills and diaphoresis. HENT: Positive for congestion and sore throat. Negative for ear pain. Eyes: Negative for pain and redness. Respiratory: Negative for cough and shortness of breath. Skin: Negative for rash and wound. Neurological: Negative for weakness and headaches. All other systems reviewed and are negative. Objective There were no vitals taken for this visit. Physical Exam Vitals reviewed. Constitutional: General: She is not in acute distress. Appearance: Normal appearance. She is normal weight. She is not ill-appearing or toxic-appearing. Comments: The patient appears to be non-toxic, in no acute distress, and resting comfortably on the table. HENT: Head: Normocephalic and atraumatic. Right Ear: Tympanic membrane, ear canal and external ear normal. Left Ear: Tympanic membrane, ear canal and external ear normal. Nose: Congestion present. Mouth/Throat: Mouth: Mucous membranes are moist. Pharynx: Oropharynx is clear. No oropharyngeal exudate or posterior oropharyngeal erythema. Eyes: Extraocular Movements: Extraocular movements intact. Cardiovascular: Rate and Rhythm: Normal rate and regular rhythm. Heart sounds: Normal heart sounds. No murmur heard. No friction rub. No gallop. Pulmonary: Effort: Pulmonary effort is normal. No respiratory distress. Breath sounds: Normal breath sounds. No wheezing. Musculoskeletal: General: Normal range of motion. Cervical back: Normal range of motion. Skin: General: Skin is warm and dry. Findings: No erythema or rash. Neurological: General: No focal deficit present. Mental Status: She is alert and oriented to person, place, and time. Mental status is at baseline. Psychiatric: Mood and Affect: Mood normal. Behavior: Behavior normal. Thought Content: Thought content normal. Assessment and Plan Rapid strep negative. Results discussed with patient. Suspect patient's symptoms are due to viral infection. Patient tested for COVID-19, influenza, and RSV. Patient advised to take ibuprofen and Tylenol as needed and follow-up with her primary care provider for any new or worsening symptoms. ASSESSMENT/PLAN: 1. Viral URI - ICD9: 465.9, ICD10: J06.9 (primary diagnosis) - Discussed viral etiology and rationale for treatment. - Symptomatic treatment with prn analgesia - Supportive care with fluids and rest 2. Sore throat - ICD9: 462, ICD10: J02.9 - Rapid Strep negative in the office today - STREP A MOLECULAR (POC) - COVID AND INFLUENZA A/B AND RSV PCR, ROUTINE 3. Nasal congestion - ICD9: 478.19, ICD10: R09.81 - COVID AND INFLUENZA A/B AND RSV PCR, ROUTINE 4. Fever, unspecified fever cause - ICD9: 780.60, ICD10: R50.9 - COVID AND INFLUENZA A/B AND RSV PCR, ROUTINE 5. RSV exposure - ICD9: V01.79, ICD10: Z20.828 - COVID AND INFLUENZA A/B AND RSV PCR, ROUTINE Medical Decision Making: Problems: Low: Acute, uncomplicated illness or injury Risk: Minimal: Minimal risk from testing/treatment Moderate: Drug management Medical Decision Making Level: 3 - Low I spent a total of 20 minutes on the date of the service which included preparing to see the patient, ppyr-ny-myst patient care, completing clinical documentation, performing a medically appropriate examination, counseling and educating the patient/family/caregive r, and ordering medications, tests, or procedures. TOYIN Chun Ariana P, PA-C 07/28/2024 9:54 AM Signed Viral Syndrome Your doctor wanted you to have the following information about viral syndrome... You are getting this information because you have symptoms related to a viral syndrome. Your body is actively fighting a virus. There are many viruses and they can cause different symptoms depending on what body part they attack. Some symptoms of a viral syndrome are: Fever (temperature higher than 100.4?F or 38?C). Headaches. Fatigue (feeling tired) and body soreness. A clogged-up or runny nose. Sore throat. Cough. Rash. Nausea (feeling sick to the stomach) and vomiting (throwing up). Diarrhea (watery poop). Stomach cramps. Basic care for a viral syndrome (more content not included)... Normal [facility] COVID AND INFLUENZA A/B AND RSV PCR, ROUTINEon 07-28-2024 SARS-CoV-2 (COVID-19) RNA AMRIT+probe Ql (Unsp spec) SARS-COV-2 (AGENT OF COVID-19) RNA: Not detected INFLUENZA A RNA: Not detected INFLUENZA B RNA: Not detected RESPIRATORY SYNCYTIAL VIRUS (RSV) RNA: Not detected Normal [facility] Comment on above: Performed By: #### C VFLRJodie #### [facility] CLIA [id number] [address] [place] [address] [place] STREP A MOLECULAR (POC)on Procedural Control Valid [facility] Strep A (POCT) Negative Negative [facility] CNOVon 07-12-2024 CNOV Office Visit (WALKWA ) KATHRYN GOMES ([id number]) 5 F Date Time Provider Department 07/12/24 3:15 PM HERRERA CAMACHO During your visit today, we recorded the following information about you: Temperature Pulse Respiration Blood pressure 99 degrees 90/minute 16/minute 129/73 Weight Height 95.5 kg 1.626 m Herrera Camacho, ROGERC 07/12/2024 4:05 PM Signed Subjective Kathryn Tram Gomes is a 18 year old female with no significant past medical history who presents to [facility] today for evaluation of a puncture wound to her right index finger which happened about 2 hours prior to arrival to [facility]. 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 She states that the finger feels swollen and like it is burning. She is unsure of the date of her last tetanus shot. Review of Systems Skin: Positive for wound (right index finger puncture wound). Negative for color change. All other systems reviewed and are negative. Objective There were no vitals taken for this visit. Physical Exam Vitals reviewed. Constitutional: General: She is not in acute distress. Appearance: Normal appearance. She is normal weight. She is not ill-appearing or toxic-appearing. Comments: The patient appears to be non-toxic, in no acute distress, and resting comfortably on the table. HENT: Head: Normocephalic and atraumatic. Eyes: Extraocular Movements: Extraocular movements intact. Musculoskeletal: General: Normal range of motion. Cervical back: Normal range of motion. Skin: General: Skin is warm and dry. Findings: Wound (very very small right index finger puncture wound, no active bleeding) present. No erythema or rash. Neurological: General: No focal deficit present. Mental Status: She is alert and oriented to person, place, and time. Mental status is at baseline. Psychiatric: Mood and Affect: Mood normal. Behavior: Behavior normal. Thought Content: Thought content normal. Assessment and Plan Examination of the skin reveals a very very small right index finger puncture wound with no active bleeding. No tenderness to palpation. Patient is neurovascularly intact. Tetanus updated. Bacitracin applied. Patient counseled regarding suspected diagnosis and advised to follow-up with primary care as needed for any new or worsening symptoms. ASSESSMENT/PLAN: 1. Puncture wound of right index finger - ICD9: 883.0, ICD10: S61.230A (primary diagnosis) - TDAP VACCINE, AGE 7+ YR (ADACEL, BOOSTRIX) - BACITRACIN 500 UNIT/GRAM TOPICAL PACKET 2. Need for tetanus booster - ICD9: V03.7, ICD10: Z23 - TDAP VACCINE, AGE 7+ YR (ADACEL, BOOSTRIX) Medical Decision Making: Problems: Low: Acute, uncomplicated illness or injury Risk: Minimal: Minimal risk from testing/treatment Moderate: Drug management Medical Decision Making Level: 3 - Low I spent a total of 20 minutes on the date of the service which included preparing to see the patient, mofx-rv-bdop patient care, completing clinical documentation, performing a medically appropriate examination, counseling and educating the patient/family/caregive r, and ordering medications, tests, or procedures. TOYIN Chun Ariana P, PA-C 07/12/2024 3:47 PM Signed Wound [facility] care Your healthcare provider may prescribe medicines for pain. Or he or she may suggest an ooqt-zlc-ndyayzf (OTC) pain reliever, such as ibuprofen. If you have chronic kidney disease, talk with your provider before taking any OTC medicines. Also talk with your provider if you've had a stomach ulcer or gastrointestinal bleeding. In certain cases, antibiotics may be prescribed to help prevent infection. If antibiotics are prescribed, take them exactly as directed for as long as directed. Don't stop taking your antibiotics until they are all gone, even if you feel better. General care Follow the healthcare provider?s instructions on how to care for the wound. Wash your hands with soap and warm water before and after caring for the wound. This helps prevent infection. If a bandage was applied, change it once a day or as directed. If at any time the bandage becomes wet or dirty, replace it with a new one. Unless told otherwise, avoid soaking the wound in water. Take showers or sponge baths instead of tub baths. Don't scrub or pick at the wound. Don't go swimming. If you have a bandage and it gets wet, use a clean cloth to gently pat the wound dry. Then replace the bandage with a dry one. Don't scratch, rub, or pick at the area. Watch for the signs of infection listed below. Any wound can get infected, even if you are taking antibiotics. Seek care right away if you see any possible signs of infection. Care for specific closures Stitches. You may want to clean the wound daily after the fi (more content not included)... Normal [facility] XR ANKLE AND FOOT 6 VIEWS LE FTon 02-25-2024 XR ANKLE AND FOOT 6 VIEWS LEFT ORIGINAL EXAMINATION: 3XRAY VIEWS OF THE ANKLE AND FOOT LEFT 02/25/2024 6:24 pm COMPARISON: None. HISTORY: ORDERING SYSTEM PROVIDED HISTORY: Reason for Exam: foot pain, no trauma FINDINGS: No fracture or dislocation. No radiopaque foreign body. Mild widening of the tibiotalar joint space laterally, which could be projectional. IMPRESSION: No acute osseous abnormality by radiograph. Interpreted by: John Soto Preliminary Report By: John Soto Electronically signed By John Soto Dictated Date: 02/25/2024 6:29:32 PM Prelim Date: 02/25/2024 6:32:20 PM Sign Date: 02/25/2024 6:32:20 PM Ordering Provider: NAGI STEPHENS Normal [facility] ([place]) CTPCRon 11-07-2023 C. trachomatis Interp Abnormal See CT Interp N [facility] ([place]) Comment on above: Result Comment: DNA detection by non-culture technique (PCR). Sensitivity testing not available with this method. This organism causes a reportable disease Results [facility] See CT Interp P Performed By: #### C TPCR, NGPCR1 #### [address] [address] C.trachomatis PCR Positive Abnormal Negative [facility] ([place]) Comment on above: Result Comment: Mole cular (PCR) assay performed on the [employer] 4800 system. Performed By: #### C TPCR, NGPCR1 #### [address] [address] Chlam Source Urine Normal [facility] ([place]) Comment on above: Performed By: #### C TPCR, NGPCR1 #### [address] [address] [id number] 11-07-2023 GC PCR Source Urine Normal [facility] ([place]) Comment on above: Performed By: #### C TPCR, NGPCR1 #### [address] [address] N. gonorrhoeae (PCR) Negative Normal Negative [facility] ([place]) Comment on above: Result Comment: Mole cular (PCR) assay performed on the [employer] 48[employer] System. Performed By: #### C TPCR, NGPCR1 #### [address] [address] N. gonorrhoeae Interp Normal See NG Interp N [facility] ([place]) Comment on above: Result Comment: N. g onorrhoeae DNA not detected. Specimen is presumptive negative for N. gonorrhoeae. A negative result does not preclude Neisseria gonorrhoeae infection because results depend on adequate specimen collection, absence of inhibitors, and sufficient DNA to be detected. See NG Interp N Performed By: #### C TPCR, NGPCR1 #### [place] [address] LABORATORYOrdered By: Anamaria Salmon on 11-02-2023 C. trachomatis DNA AMRIT+probe Ql (Unsp spec) Positive 2 *ABN* (11/02/23 5:21 PM) Invalid Interpretation Code AH Auto Viro/Sero SS Comment on above: Interpretive Data: M olecular (PCR) assay performed on the [employer] system. C. trachomatis DNA AMRIT+probe Ql (Unsp spec) DNA detection by non-culture technique (PCR). Sensitivity testing notavailable with this method.This organism causes a reportable diseaseResults have been reported to the [place] [facility] Invalid Interpretation Code See CT Interp N AH Auto Viro/Sero SS N. gonorrhoeae DNA AMRIT+probe Ql (Unsp spec) Negative 1 (11/02/23 5:21 PM) Normal Auto Viro/Sero SS Comment on above: Interpretive Data: M olecular (PCR) assay performed on the [employer] System. N. gonorrhoeae DNA AMRIT+probe Ql (Unsp spec) N. gonorrhoeae DNA not detected. Specimen is presumptive negative forN. gonorrhoeae. A negative result does not preclude Neisseria gonorrhoeaeinfection because results depend on adequate specimen collection, absenceof inhibitors, and sufficient DNA to be detected. Normal See NG Interp N AH Auto Viro/Sero SS Laboratory - Specimen inform ationOrdered By: Anamaria Salmon on 11-02-2023 Specimen source Nom (Unsp spec) Urine (11/02/23 5:21 PM) Normal Auto Viro/Sero SS No Panel Informationon 11-01 Culture Urine 10,000 - 50,000 cfu/ ml Multiple bacterial morphotypes present. Probable Contamination. Suggest recollection if clinically indicated. [facility] Work Phone: No Panel Informationon 10-09 Culture Urine <10,000 cfu/ml. No Significant growth. Sensitivity not indicated. [facility] Work Phone: XR SHOULDER MINIMUM 2 VIEWS RIGHTon 06-30-2023 XR SHOULDER MINIMUM 2 VIEWS RIGHT ORIGINAL EXAMINATION: 4 XRAY VIEWS OF THE RIGHT SHOULDER06/28/2023 9:48 am COMPARISON: None. HISTORY: ORDERING SYSTEM PROVIDED HISTORY: Reason for Exam: right shoulder pain FINDINGS: No fracture or dislocation is identified. Lateral downsloping of the acromion noted. There are no abnormal periarticular calcifications. The acromioclavicular joint is normal. The included thoracic structures are normal. IMPRESSION: No acute fracture or dislocation. Interpreted by: Rob Buckner MD Preliminary Report By: Rbo Buckner MD Electronically signed By Rob Buckner MD Dictated Date: 06/30/2023 12:15:48 PM Prelim Date: 06/30/2023 12:16:21 PM Sign Date: 06/30/2023 12:16:21 PM Ordering Provider: ELLIOT Harrington [facility] ([place]) No Panel Informationon 06-03 Culture Throat Normal throat radha present Sensitivity Testing: Not Indicated [facility] Work Phone: Progress Noteon 05-24-2023 Shirrer Authentication Interface Message Text [facility] Kathryn Gomes is a 17 y.o. female being seen today for follow up. This is a telemedicine video visit requested by the patient/guardian that was performed with the patient's location at home and the provider's location at office. Last visit: 03/22/23 Interim History: Florinef was started at last office visit. Pre-syncopal episodes have lessened and now only occurring once per week. Has been drinking more water, does not use salt supplementation tablets. No chest pain, palpitations, or shortness of breath. She has not had syncope. No other changes. Past History: 03/22/23 Kathryn noticed slight improvement to her pre-syncopal episodes with an increase in fluid and salt intake. She continues with pre-syncope around 5 times per week. Mostly occurs mostly in the mornings and when standing. She denies chest pain, heart racing or shortness of breath. A cardiac event monitor was placed last visit due to palpitations. Final results are not available. Preliminary reading shows sinus tachycardia. She has not had syncope. No new medication changes. 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 Was treated and went away. Stopped seizure medications 2 years ago. Last year she stared noticing feeling dizzy, heart would race, and her vision would go out. Initially thought this was her seizures returning, followed up with neurology and had normal EEG. She continues with pre-syncopal episodes 2-3 times per week. 2 days ago she recalls getting up to use the restroom. Once she got to the bathroom she felt dizzy, her heart started to race, felt as if she were going to pass out and sat down on the floor. Vision kept going in and out. She laid on the floor for about 1 minute and symptoms resolved. She denies chest pain. She sometimes feels shortness of breath when dizzy. This can last for 1 minute, then resolve. Has not been active, noticed dizziness if she runs too much. Separate to her dizziness episodes, she has been noticing her heart racing and will pound while resting. This lasts 10 minutes, then resolves. No accompanied symptoms. She had a previous 24-Holter study, but feels she did not have palpitations during this time. Drinks a couple bottles of water per day. Menstrual periods with heavy cramping. Review of systems All other systems reviewed and are negative except as detailed above. Prior Cardiac Testin-Hr Holter (01/10/23): Normal Echo (01/19/23): Normal EKG (01/19/23): Normal Cardiac event monitor: normal Past Medical History: Diagnosis Date ADHD (attention deficit hyperactivity disorder) Aquagenic urticaria Mental disorder Seizures No past surgical history on file. Current Outpatient Medications Medication Instructions fexofenadine (ERICA) 180 MG tablet Oral fludrocortisone (FLORINEF) 0.1 MG tablet Take 0.5 Tablets (0.05 mg) by mouth daily for 7 days, THEN 1 Tablet (0.1 mg) daily for 90 days. ranitidine (ZANTAC) 75 mg, Oral, DAILY PRN Allergies Allergen Reactions Coconut [Tree Nut Allergy] Itching Candler [Prunus Persica] Itching Family History: Brother with thickening of aortic valve; Mom narrowing of left ventricle; mom with SVT; There is no other known congenital heart disease, arrhythmia, sudden or SIDS on the maternal or the paternal side of the family. Social History: Senior year. Lives at home with parents. 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 Physical Exam: The Physical Exam is limited due to Telehealth General: Patient appears healthy, well developed, well nourished, non-toxic, and in no acute distress HEENT: atraumatic and normocephalic Chest: Respirations are easy, non-labored with symmetric chest rise. Skin: [place], without obvious rashes or lesions. Neuro: Awake and alert. Answering questions appropriately and following commands. Impression: Vasovagal pre-syncope Orthostatic dizziness Kathryn has noticed improvement to pre-syncopal episodes after the start of Florinef. We will continue with same dosage. Recommended adding salt supplementation tablets. We will check labs at next visit. No other questions/concerns. Plan: Medications: Continue Florinef 0.1 mg daily Increase sodium intake to at least 4,000 milligrams (mg) per day. (1 tsp of table salt =2,325 mg of sodium) We recommend over the counter salt supplementation tablets Ex. Vitassium Salt stick (1 sojburn=603vf Na); Klaralyte (1 gfyiqqi=755pc Na); Take 2 capsules twice daily Increase fluid intake to at least 100 ounces of water/caffeine free liquids per day Restrictions: None from a cardiology perspective Follow up: 6 months via telehealth Total encounter time: 25 minutes Carisa Reece APRN-[employer]IST MANAGER Pediatric Nurse Practitioner [facility] 05/24/2023 Normal [facility] Progress Noteon 03-22-2023 Shirrer Authentication Interface Message Text [facility] Kathryn Gomes is a 17 y.o. female being seen today for follow up. She is accompanied by her mother, aunt and cousins. Last visit: 01/19/23 Interim History: Kathryn noticed slight improvement to her pre-syncopal episodes with an increase in fluid and salt intake. She continues with pre-syncope around 5 times per week. Mostly occurs mostly in the mornings and when standing. She denies chest pain, heart racing or shortness of breath. A cardiac event monitor was placed last visit due to palpitations. Final results are not available. Preliminary reading shows sinus tachycardia. She has not had syncope. No new medication changes. 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 Was treated and went away. Stopped seizure medications 2 years ago. Last year she stared noticing feeling dizzy, heart would race, and her vision would go out. Initially thought this was her seizures returning, followed up with neurology and had normal EEG. She continues with pre-syncopal episodes 2-3 times per week. 2 days ago she recalls getting up to use the restroom. Once she got to the bathroom she felt dizzy, her heart started to race, felt as if she were going to pass out and sat down on the floor. Vision kept going in and out. She laid on the floor for about 1 minute and symptoms resolved. She denies chest pain. She sometimes feels shortness of breath when dizzy. This can last for 1 minute, then resolve. Has not been active, noticed dizziness if she runs too much. Separate to her dizziness episodes, she has been noticing her heart racing and will pound while resting. This lasts 10 minutes, then resolves. No accompanied symptoms. She had a previous 24-Holter study, but feels she did not have palpitations during this time. Drinks a couple bottles of water per day. Menstrual periods with heavy cramping. Review of systems All other systems reviewed and are negative except as detailed above. Prior Cardiac Testin-Hr Holter (01/10/23): Normal Echo (01/19/23): Normal EKG (01/19/23): Normal Cardiac event monitor: Placed 01/19/23, awaiting final results Past Medical History: Diagnosis Date ADHD (attention deficit hyperactivity disorder) Aquagenic urticaria Mental disorder Seizures History reviewed. No pertinent surgical history. Current Outpatient Medications Medication Instructions fexofenadine (ERICA) 180 MG tablet Oral ranitidine (ZANTAC) 75 mg, Oral, DAILY PRN Allergies Allergen Reactions Coconut [Tree Nut Allergy] Itching Candler [Prunus Persica] Itching Family History: Brother with thickening of aortic valve; Mom narrowing of left ventricle; mom with SVT; There is no other known congenital heart disease, arrhythmia, sudden or SIDS on the maternal or the paternal side of the family. Social History: Senior year. Lives at home with parents. Physical Exam: 1. General: Alert, active, well developed, in no acute distress. 2. BP 117/66 (BP Site: Right Arm, Patient Position: Sitting, BP Cuff Size: Adult) Pulse (!) 115 Resp 20 Ht 165.5 cm Wt 68.2 kg BMI 24.90 kg/m 3. Neck supple without masses or thyromegaly. 4. Cardiovascular: Regular rate and rhythm, normal S1 and S2 with normal splitting, no S3 or S4. No murmurs clicks, or rubs. No chest wall tenderness. Normal precordium. Upper and lower extremity pulses equal. 5. Respiratory: Lungs clear and equal. No retractions, wheezing, coughing,grunting, or nasal flaring. 6. Abdomen: Soft, non-tender, and non-distended. No hepatosplenomegaly. 7. Integumentary: Warm and well perfused, no clubbing/cyanosis/edema . Pulses are 2+ and symmetric in the radial and dorsalis pedis locations. Impression: Vasovagal pre-syncope Orthostatic dizziness I would like to start fludrocortisone and sodium supplementation for blood volume expansion which may help lessen dizziness and associated symptoms. We reviewed importance of continuing with lifestyle modifications. Kathryn and mom comfortable with plan. Plan: Medications: Start Florinef 0.05 mg (1/2 tablet) by mouth daily for 1 week, then increase to 0.1 mg (1 tablet) by mouth daily. Increase sodium intake to at least 4,000 milligrams (mg) per day. (1 tsp of table salt =2,325 mg of sodium) We recommend over the counter salt supplementation tablets Ex. Vitassium Salt stick (1 jrayewd=967iy Na); Klaralyte (1 rpveluo=267cu Na); Take 2 capsules twice daily Increase fluid intake to at least 100 ounces of water/caffeine free liquids per day Restrictions: None from a cardiology perspective Follow up: 2 months via telehealth Total encounter time: 30 minutes Carisa J Reece, LOG SORTING SUPERVISOR-MANPOWER DEVELOPMENT SPECIALIST MANAGER Pediatric Nurse Practitioner [facility] 03/22/2023 Normal [facility] No Panel Informationon 03-03 Culture Throat Normal throat radha present Sensitivity Testing: Not Indicated [facility] Work Phone: Basic Metabolic Panelon 12-25 Calcium [Mass/Vol] 9.8 mg/dL Normal 7.6-11.0 [facility] Comment on above: Order Comment: Relea se to patient->Automatic [id number]&Blood Performed By: #### B MP #### [place] [address] CO2 [Moles/Vol] 25.7 mmol/L Normal 22.0-29.0 [facility] Comment on above: Order Comment: Relea se to patient->Automatic 24385&Blood Performed By: #### B MP #### [place] [address] Creatinine [Mass/Vol] 0.76 mg/dL Normal 0.50-1.00 [facility] Comment on above: Order Comment: Relea se to patient->Automatic [id number]&Blood Performed By: #### B MP #### [address] [address] Glucose [Mass/Vol] 88 mg/dL Normal 70-99 [facility] Comment on above: Order Comment: Relea se to patient->Automatic 65977&Blood Result Comment: Criwilma ross for Diagnosis of Diabetes: Fasting Specimen (no caloric intake for at least 8 hours): <100 mg/dL Normal 100-125 mg/dL Increased risk for Diabetes >125 mg/dL Diagnostic for Diabetes Random Glucose (any time of day without regard to last meal): > or = 200 mg/dL plus Classic Symptoms of Diabetes Performed By: #### B MP #### [place] [address] Urea nitrogen [Mass/Vol] 10 mg/dL Normal 4-19 [facility] Comment on above: Order Comment: Relea se to patient->Automatic [id number]&Blood Performed By: #### B MP #### [place] [id number] Calcium [Mass/Vol] 9.8 mg/dL 7.6 - 11. 0 mg/dL [facility] Chloride [Moles/Vol] 103 mmol/L 96 - 10 8 mmol/L [facility] CO2 [Moles/Vol] 25.7 mmol/L 22.0 - 29.0 mmol/L [facility] Creatinine [Mass/Vol] 0.76 mg/dL 0.50 - 1.00 mg/dL [facility] Glucose [Mass/Vol] 88 mg/dL 70 - 99 mg/dL [facility] Comment on above: Criteria for Diagnos is of Diabetes: Fasting Specimen (no caloric intake for at least 8 hours): <100 mg/dL Normal 100-125 mg/dL Increased risk for Diabetes >125 mg/dL Diagnostic for Diabetes Random Glucose (any time of day without regard to last meal): > or = 200 mg/dL plus Classic Symptoms of Diabetes Potassium [Moles/Vol] 4.2 mmol/L 3.3 - 5.1 mmol/L [facility] Sodium [Moles/Vol] 139 mmol/L 133 - 145 mmol/L [facility] Urea nitrogen [Mass/Vol] 10 mg/dL 4 - 19 mg/dL [facility] Release to patient->Automatic [facility] Chloride [Moles/Vol] 103 mmol/L Normal 96-108 [facility] Comment on above: Order Comment: Relea se to patient->Automatic 09663&Blood Performed By: #### B MP #### [address] [id number] Potassium [Moles/Vol] 4.2 mmol/L Normal 3.3-5.1 [facility] Comment on above: Order Comment: Relea se to patient->Automatic 28029&Blood Performed By: #### B MP #### [address] [place] [address] Sodium [Moles/Vol] 139 mmol/L Normal 133-145 [facility] Comment on above: Order Comment: Relea se to patient->Automatic 86309&Blood Performed By: #### B MP #### [address] [address] Complete Blood Counton 01-19 Differential Complete Automated Normal [facility] Comment on above: Order Comment: Relea se to patient->Automatic 50731&Blood Performed By: #### C BC #### [address] [address] Basophils/100 WBC (Bld) 0.70 % Normal 0.00-1.00 [facility] Comment on above: Order Comment: Relea se to patient->Automatic 81059&Blood Performed By: #### C BC #### [address] [address] Eosinophils/100 WBC (Bld) 2.60 % Normal 0.00-3.00 [facility] Comment on above: Order Comment: Relea se to patient->Automatic 92272&Blood Performed By: #### C BC #### [address] [address] Erythrocyte distribution width (RBC) [Ratio] 12.4 % Normal 0.0-14.4 [facility] Comment on above: Order Comment: Relea se to patient->Automatic 04238&Blood Performed By: #### C BC #### [address] [address] Hematocrit (Bld) [Volume fraction] 47.3 % High 37.0-46.0 [facility] Comment on above: Order Comment: Relea se to patient->Automatic 03113&Blood Performed By: #### C BC #### [address] [address] Hemoglobin (Bld) [Mass/Vol] 16.3 g/dL High 12.0-15.0 [facility] Comment on above: Order Comment: Relea se to patient->Automatic 06338&Blood Performed By: #### C BC #### [address] [address] Immature granulocytes/100 WBC (Bld) 0.20 % Normal [facility] Comment on above: Order Comment: Relea se to patient->Automatic 25416&Blood Result Comment: Jennifer ture Granulocyte Percent includes promyelocytes, myelocytes, and metamyelocytes. IG% > 1.0 indicates a left shift is present. With automated differentials, bands are included in the neutrophil count and not in the Immature Granulocyte Percent. Performed By: #### C BC #### [address] [address] Lymphocytes/100 WBC (Bld) 36.6 % Normal 25.0-45.0 [facility] Comment on above: Order Comment: Relea se to patient->Automatic 41638&Blood Performed By: #### C BC #### [address] [address] MCH (RBC) [Entitic mass] 31.7 pg Normal 25.0-35.0 [facility] Comment on above: Order Comment: Relea se to patient->Automatic 60596&Blood Performed By: #### C BC #### [address] [address] MCHC 34.5 % Normal 31.0-37.0 [facility] Comment on above: Order Comment: Relea se to patient->Automatic 47882&Blood Performed By: #### C BC #### [address] [address] MCV (RBC) [Entitic vol] 91.8 fL Normal 78.0-96.0 [facility] Comment on above: Order Comment: Relea se to patient->Automatic 93665&Blood Performed By: #### C BC #### [address] [address] Monocytes/100 WBC (Bld) 7.90 % High 3.00-6.00 [facility] Comment on above: Order Comment: Relea se to patient->Automatic 12286&Blood Performed By: #### C BC #### [address] [address] Neutrophils (Bld) [#/Vol] 3.0 10*3/uL Normal 1.8-7.5 [facility] Comment on above: Order Comment: Relea se to patient->Automatic 88762&Blood Performed By: #### C BC #### [address] [address] Neutrophils/100 WBC (Bld) 52.0 % Normal 34.0-64.0 [facility] Comment on above: Order Comment: Relea se to patient->Automatic 99181&Blood Performed By: #### C BC #### [address] [address] Nucleated RBC/100 WBC (Bld) [Ratio] 0.0 % Normal -1.0-0.0 [facility] Comment on above: Order Comment: Relea se to patient->Automatic 03290&Blood Performed By: #### C BC #### [address] [address] Platelet mean volume (Bld) [Entitic vol] 10.0 fL Normal [facility] Comment on above: Order Comment: Relea se to patient->Automatic 98976&Blood Result Comment: MPV is platelet range and age dependent Performed By: #### C BC #### [address] [address] Platelets (Bld) [#/Vol] 352 10*3/uL Normal 150-450 [facility] Comment on above: Order Comment: Relea se to patient->Automatic 45861&Blood Performed By: #### C BC #### [address] [address] RBC 5.15 10E12/L High 4.10-4.80 [facility] Comment on above: Order Comment: Relea se to patient->Automatic 85431&Blood Performed By: #### C BC #### [address] [address] WBC (Bld) [#/Vol] 5.7 10*3/uL Normal 4.5-13.0 [facility] Comment on above: Order Comment: Relea se to patient->Automatic 41026&Blood Performed By: #### C BC #### [address] [address] Complete Blood Count with Di fferentialon 01-19-2023 Basophils/100 WBC (Bld) 0.70 % 0.00 - 1.00 % [facility] Differential Complete Automated [facility] Eosinophils/100 WBC (Bld) 2.60 % 0.00 - 3.00 % [facility] Erythrocyte distribution width (RBC) [Ratio] 12.4 % 0.0 - 14.4 % [facility] Hematocrit (Bld) [Volume fraction] 47.3 % High 37.0 - 46.0 % [facility] Hemoglobin (Bld) [Mass/Vol] 16.3 g/dL High 12.0 - 15.0 g/dl [facility] Immature granulocytes/100 WBC (Bld) 0.20 % [facility] Comment on above: Immature Granulocyte Percent includes promyelocytes, myelocytes, and metamyelocytes. IG% > 1.0 indicates a left shift is present. With automated differentials, bands are included in the neutrophil count and not in the Immature Granulocyte Percent. Interpretation and review of laboratory results Abnormal [facility] Lymphocytes/100 WBC (Bld) 36.6 % 25.0 - 45.0 % [facility] MCH (RBC) [Entitic mass] 31.7 pg 25.0 - 35.0 pg [facility] MCHC 34.5 % 31.0 - 37.0 % [facility] MCV (RBC) [Entitic vol] 91.8 fL 78.0 - 96.0 fl [facility] Monocytes/100 WBC (Bld) 7.90 % High 3.00 - 6.00 % [facility] Neutrophils (Bld) [#/Vol] 3.0 10*3/uL [facility] Neutrophils/100 WBC (Bld) 52.0 % 34.0 - 64.0 % [facility] Nucleated RBC/100 WBC (Bld) [Ratio] 0.0 % -1.0 - 0.0 % [facility] Platelet mean volume (Bld) [Entitic vol] 10.0 fL [facility] Comment on above: MPV is platelet range and age dependent Platelets (Bld) [#/Vol] 352 10*3/uL [facility] RBC (Bld) [#/Vol] 5.15 10*6/uL High [facility] WBC (Bld) [#/Vol] 5.7 10*3/uL [facility] Release to patient->Automatic [facility] Ferritinon 01-19-2023 Ferritin [Mass/Vol] 38 ng/mL Normal 25-207 [facility] Comment on above: Order Comment: Relea se to patient->Automatic 15326&Blood Performed By: #### F ERTN #### [address] [address] Ferritin [Mass/Vol] 38 ng/mL 25 - 207 ng/mL [facility] Ironon 01-19-2023 %Saturation 39 % Normal 13-59 [facility] Comment on above: Order Comment: Relea se to patient->Automatic 44375&Blood Performed By: #### I MAKENZIE #### [place] [id number] Iron [Mass/Vol] 150 ug/dL Normal 30-160 [facility] Comment on above: Order Comment: Relea se to patient->Automatic 45303&Blood Performed By: #### I MAKENZIE #### [facility] [place] [address] [place] [address] TIBC 389 ug/dL Normal 228-428 [facility] Comment on above: Order Comment: Relea se to patient->Automatic 15375&Blood Performed By: #### I MAKENZIE #### [facility] [place] [address] [place] [address] % Saturation 39 % 13 - 59 % [facility] Iron [Mass/Vol] 150 ug/dL 30 - 160 ug/dL [facility] TIBC 389 ug/dL 228 - 428 ug/dL [facility] Release to patient->Automatic [facility] No Panel Informationon 01-19 Release to patient->Automatic [facility] Progress Noteon 01-19-2023 Shirrer Authentication Interface Message Text [facility] History: Kathryn Gomes is a 17 y.o. female who presents to clinic today for evaluation of dizziness. She is brought in by her mom, who assisted with providing the history. Any medical records that were available at the time of this visit was also utilized. Referred from Dr. Anaya (Neurologist)- [facility]. 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 Was treated and went away. Stopped seizure medications 2 years ago. Last year she stared noticing feeling dizzy, heart would race, and her vision would go out. Initially thought this was her seizures returning, followed up with neurology and had normal EEG. She continues with pre-syncopal episodes 2-3 times per week. 2 days ago she recalls getting up to use the restroom. Once she got to the bathroom she felt dizzy, her heart started to race, felt as if she were going to pass out and sat down on the floor. Vision kept going in and out. She laid on the floor for about 1 minute and symptoms resolved. She denies chest pain. She sometimes feels shortness of breath when dizzy. This can last for 1 minute, then resolve. Has not been active, noticed dizziness if she runs too much. Separate to her dizziness episodes, she has been noticing her heart racing and will pound while resting. This lasts 10 minutes, then resolves. No accompanied symptoms. She had a previous 24-Holter study, but feels she did not have palpitations during this time. Drinks a couple bottles of water per day. Menstrual periods with heavy cramping. Review of systems All other systems reviewed and are negative except as detailed above. Prior Cardiac Testing: HOLTER (01/10/23): Normal Past Medical History: Diagnosis Date ADHD (attention deficit hyperactivity disorder) Aquagenic urticaria Mental disorder Seizures History reviewed. No pertinent surgical history. Current Outpatient Medications Medication Instructions fexofenadine (ERICA) 180 MG tablet Oral ranitidine (ZANTAC) 75 mg, Oral, DAILY PRN Allergies Allergen Reactions Coconut [Tree Nut Allergy] Itching Candler [Prunus Persica] Itching Family History: Brother with thickening of aortic valve; Mom narrowing of left ventricle; mom with SVT; There is no other known congenital heart disease, arrhythmia, sudden or SIDS on the maternal or the paternal side of the family. Social History: Going into [employer]. Lives at home with parents. Physical Exam: 1. General: Alert, active, well developed, in no acute distress. 2. Vital Signs 01/19/23 1107 01/19/23 1109 BP: 112/68 Pulse: 97 Resp: 18 Weight: 70.5 kg Height: 164.5 cm Blood pressure (lay flat for > or equal to 5 minutes): 112/68 Pulse (lay flat for > or equal to 5 minutes): 97 Blood Pressure (stand at 1 minute interval): 137/81 Pulse (stand at 1 minute interval): 102 Blood Pressure (stand at 3 minute interval): 119/83 Pulse (stand at 3 minute interval): 115 3. Neck supple without masses or thyromegaly. 4. Cardiovascular: Regular rate and rhythm, normal S1 and S2 with normal splitting, no S3 or S4. No murmurs clicks, or rubs. No chest wall tenderness. Normal precordium. Upper and lower extremity pulses equal. 5. Respiratory: Lungs clear and equal. No retractions, wheezing, coughing,grunting, or nasal flaring. 6. Abdomen: Soft, non-tender, and non-distended. No hepatosplenomegaly. 7. Integumentary: Warm and well perfused, no clubbing/cyanosis/edema . Pulses are 2+ and symmetric in the radial and dorsalis pedis locations. Studies: 1. ECG(01/19/2023): Sinus rhythm. Normal ECG 2. ECHO (01/19/2023): Normal findings 3. Cardiac event monitor placed Impression: Vasovagal pre-syncope Discussion: Kathryn is a 17 y.o. female here for evaluation for syncope. Based on the clinical history and cardiac findings as detailed above, her symptoms are suggestive of a vagal mediated process for which the hallmark of therapy is intentional fluid hydration and education. With the onset of symptoms she should sit or lay down to prevent a syncopal event and/or traumatic injury associated with falling. I recommend increase in fluid intake ensuring clear urine, increase in salt intake, and leg and arm flexing prior to getting up. Kathryn should also avoid caffeine containing beverages as these can have a diuretic effect. Labs ordered for further evaluation of dizziness. Reviewed normal echocardiogram with mom and Kathryn. A cardiac event monitor was placed for further evaluation of palpitations. Kathryn and mom agree with plan and have no further questions. Plan: Medications: None at this time Increase sodium intake to at least 4,000 milligrams (mg) per day. (1 tsp of table salt =2,325 mg of sodium) We recommend over the counter salt supplementation tablets Ex. Vitassium Salt stick (1 afgfwrm=817ud Na); Klaralyte (1 ivabtgu=043ou Na); Take 2 capsules twice (more content not included)... Normal [facility] TSH with Reflex to T4, Freeo n 01-19-2023 TSH with reflex to T4, Free 2.670 [facility] TSH with reflex T4FRon 01-19 TSH with reflex T4FR 2.670 uIU/mL Normal 0.500-4.300 [facility] Comment on above: Order Comment: Relea se to patient->Automatic 43975&Blood Performed By: #### T SHR #### [facility] [place] [address] STREP A MOLECULAR (POC)on 02 -17-2023 Procedural Control Valid [facility] Strep A (POCT) Negative Negative [facility] LABORATORYOrdered By: Doloreshenrietta veronica Krishnamurthy on 08-02-2022 Basophil, Absolute 0.0 103/mcL Invalid Interpretation Code 0.0 - 0.2 10^3/mcL AO Workflow SS Basophils/100 WBC (Bld) 0.8 % Invalid Interpretation Code 0.0 - 2.5 % AO Workflow SS Eosinophil, Absolute 0.3 103/mcL Invalid Interpretation Code 0.0 - 0.4 10^3/mcL AO Workflow SS Eosinophils/100 WBC (Bld) 6.5 % Invalid Interpretation Code 0.0 - 7.0 % AO Workflow SS Erythrocyte distribution width (RBC) [Ratio] 13.2 % Invalid Interpretation Code 11.5 - 14.5 % AO Workflow SS Hematocrit (Bld) [Volume fraction] 46.7 % Invalid Interpretation Code 37.0 - 47.0 % AO Workflow SS Hemoglobin (Bld) [Mass/Vol] 15.7 G/dL Invalid Interpretation Code 12.0 - 16.0 G/dL AO Workflow SS Lymphocyte, Absolute 1.6 103/mcL Invalid Interpretation Code 0.8 - 3.9 10^3/mcL AO Workflow SS Lymphocytes/100 WBC (Bld) 32.3 % Invalid Interpretation Code 10.0 - 50.0 % AO Workflow SS MCH (RBC) [Entitic mass] 30.7 pg Invalid Interpretation Code 27.0 - 31.2 pg AO Workflow SS MCHC 33.6 G/dL Invalid Interpretation Code 33.0 - 37.0 G/dL AO Workflow SS MCV (RBC) [Entitic vol] 91.4 fL Invalid Interpretation Code 80.0 - 94.0 fL AO Workflow SS Monocyte, Absolute 0.4 103/mcL Invalid Interpretation Code 0.2 - 1.0 10^3/mcL AO Workflow SS Monocytes/100 WBC (Bld) 7.8 % Invalid Interpretation Code 1.7 - 13.0 % AO Workflow SS Neutrophil, Absolute 2.6 103/mcL Invalid Interpretation Code 2.9 - 6.2 10^3/mcL AO Workflow SS Neutrophils/100 WBC (Bld) 52.6 % Invalid Interpretation Code 37.0 - 80.0 % AO Workflow SS Platelet mean volume (Bld) [Entitic vol] 8.6 fL Invalid Interpretation Code 7.4 - 10.4 fL AO Workflow SS Platelets (Bld) [#/Vol] 361 103/mcL Invalid Interpretation Code 130 - 400 10^3/mcL AO Workflow SS RBC (Bld) [#/Vol] 5.11 106/mcL Invalid Interpretation Code 4.20 - 5.40 10^6/mcL AO Workflow SS WBC (Bld) [#/Vol] 5.0 103/mcL Invalid Interpretation Code 4.6 - 10.8 10^3/mcL AO Workflow SS LABORATORYOrdered By: [employer] on 08-02-2022 Calcium [Mass/Vol] 9.7 mg/dL Invalid Interpretation Code 8.4 - 10.2 mg/dL AO ADM SS Chloride [Moles/Vol] 103 mmol/L Invalid Interpretation Code 98 - 107 mmol/L AO ADM SS CO2 [Moles/Vol] 29 mmol/L Invalid Interpretation Code 22 - 29 mmol/L AO ADM SS Creatinine [Mass/Vol] 0.77 mg/dL Invalid Interpretation Code 0.55 - 1.02 mg/dL AO ADM SS Electrolyte Balance 7.0 mEq/L Invalid Interpretation Code 4.0 - 15.0 mEq/L AO ADM SS Glucose [Mass/Vol] 86 mg/dL Invalid Interpretation Code 70 - 105 mg/dL AO ADM SS Magnesium [Mass/Vol] 2.0 mg/dL Invalid Interpretation Code 1.8 - 2.4 mg/dL AO ADM SS Potassium [Moles/Vol] 5.0 mmol/L Invalid Interpretation Code 3.5 - 5.1 mmol/L AO ADM SS Sodium [Moles/Vol] 139 mmol/L Invalid Interpretation Code 136 - 145 mmol/L AO ADM SS Urea nitrogen [Mass/Vol] 7 mg/dL Invalid Interpretation Code 7 - 18 mg/dL AO ADM SS Urea nitrogen/Creatinine [Mass ratio] 9 ratio Invalid Interpretation Code 7 - 27 ratio AO ADM SS LABORATORYOrdered By: Lea Macias on 06-20-2022 SARS-CoV-2 (COVID-19) RNA AMRIT+probe Ql (Resp) Negative results do not preclude SARS-CoV-2 infection and should not be used as the sole basis for patient management decisions. Negative results must be combined with clinical observations, patient history, and epidemiological information.There is a risk of false negative values resulting from improperly collected, transported, or handled specimens.There is a risk of false negative values due to the presence of sequence variants in the pathogen targets of the assay, procedural errors, amplification inhibitors in specimens, or inadequate numbers of organisms for amplification.ZACH SARS-CoV-2 Assay is a Real-Time reverse-transcriptase polymerase chain reaction (RT-PCR) based qualitative in vitro diagnostic test intended for the qualitative detection of nucleic acid from the SARS-CoV-2 in nasopharyngeal swab specimens collected from individuals suspected of COVID-19 by their healthcare provider. Testing is limited to laboratories certified under the Clinical Laboratory Improvement Amendments of 1988 (CLIA), 42 U.S.C. 263a, to perform moderate and high complexity tests. Invalid Interpretation Code AO Auto Urine SS LABORATORYOrdered By: Wanda singh on 03-01-2022 Adenovirus DNA AMRIT+non-probe Ql (Nph) Not Detected *NA* (03/01/22 4:24 PM) Invalid Interpretation Code Not Detected AH Auto Viro/Sero SS ADMITTED TO INTENSIVE CARE UNIT FOR CONDITION OF INTEREST:FIND:PT:^PAT IENT:ORD: No (03/01/22 4:24 PM) Invalid Interpretation Code AH Auto Viro/Sero SS B. parapertussis [id number] DNA AMRIT+non-probe Ql (Nph) Not Detected *NA* (03/01/22 4:24 PM) Invalid Interpretation Code Not Detected AH Auto Viro/Sero SS B. pertussis toxin promoter region AMRIT+non-probe Ql (Nph) Not Detected *NA* (03/01/22 4:24 PM) Invalid Interpretation Code Not Detected AH Auto Viro/Sero SS C. pneumoniae DNA AMRIT+non-probe Ql (Nph) Not Detected *NA* (03/01/22 4:24 PM) Invalid Interpretation Code Not Detected AH Auto Viro/Sero SS EMPLOYED IN A HEALTHCARE SETTING:FIND:PT:^CARMELINA ENT:ORD: No (03/01/22 4:24 PM) Invalid Interpretation Code AH Auto Viro/Sero SS FIRST TEST FOR CONDITION OF INTEREST:FIND:PT:^PAT IENT:ORD: No (03/01/22 4:24 PM) Invalid Interpretation Code AH Auto Viro/Sero SS FLUAV RNA AMRIT+non-probe Ql (Nph) Not Detected *NA* (03/01/22 4:24 PM) Invalid Interpretation Code Not Detected AH Auto Viro/Sero SS FLUBV RNA AMRIT+non-probe Ql (Nph) Not Detected *NA* (03/01/22 4:24 PM) Invalid Interpretation Code Not Detected AH Auto Viro/Sero SS HAS SYMPTOMS RELATED TO CONDITION OF INTEREST:FIND:PT:^PAT IENT:ORD: Yes (03/01/22 4:24 PM) Invalid Interpretation Code Auto Viro/Sero SS hMPV RNA AMRIT+non-probe Ql (Nph) Not Detected *NA* (03/01/22 4:24 PM) Invalid Interpretation Code Not Detected Auto Viro/Sero SS Illness or injury onset date and time [id number] Invalid Interpretation Code Auto Viro/Sero SS M. pneumoniae DNA AMRIT+non-probe Ql (Nph) Not Detected *NA* (03/01/22 4:24 PM) Invalid Interpretation Code Not Detected Auto Viro/Sero SS Parainfluenza virus 1 RNA AMRTI+non-probe Ql (Nph) Not Detected *NA* (03/01/22 4:24 PM) Invalid Interpretation Code Not Detected Auto Viro/Sero SS Parainfluenza virus 2 RNA AMRIT+non-probe Ql (Nph) Not Detected *NA* (03/01/22 4:24 PM) Invalid Interpretation Code Not Detected Auto Viro/Sero SS Parainfluenza virus 3 RNA AMRIT+non-probe Ql (Nph) Not Detected *NA* (03/01/22 4:24 PM) Invalid Interpretation Code Not Detected Auto Viro/Sero SS Parainfluenza virus 4 RNA AMRIT+non-probe Ql (Nph) Not Detected *NA* (03/01/22 4:24 PM) Invalid Interpretation Code Not Detected Auto Viro/Sero SS Patient was hospitalized because of this condition No (03/01/22 4:24 PM) Invalid Interpretation Code Auto Viro/Sero SS status Unknown (03/01/22 4:24 PM) Invalid Interpretation Code Auto Viro/Sero SS RESIDES IN A CONGREGATE CARE SETTING:FIND:PT:^CARMELINA ENT:ORD: No (03/01/22 4:24 PM) Invalid Interpretation Code Auto Viro/Sero SS Rhinovirus+Enteroviru s RNA AMRIT+non-probe Ql (Nph) Detected *ABN* (03/01/22 4:24 PM) Invalid Interpretation Code Not Detected Auto Viro/Sero SS RSV RNA AMRIT+non-probe Ql (Nph) Not Detected *NA* (03/01/22 4:24 PM) Invalid Interpretation Code Not Detected AH Auto Viro/Sero SS SARS-CoV-2 (COVID-19) RNA AMRIT+probe Ql (Resp) Not Detected *NA* (03/01/22 4:24 PM) Invalid Interpretation Code Not Detected AH Auto Viro/Sero SS No Panel Informationon 03-01 Culture Throat Normal throat radha present Sensitivity Testing: Not Indicated Comment: The most common etiologic agents in pharyngitis include Group A beta Strep, Adenovirus, EBV, and CMV. A negative bacterial culture may be supplemented with a virus culture if duration of present illness is less than 7 days. [facility] Work Phone: LABORATORYOrdered By: Ab Ramon on 04-27-2021 Albumin BCP dye [Mass/Vol] 4.1 G/dL Invalid Interpretation Code 3.5 - 5.0 G/dL AO ADM SS Albumin/Globulin [Mass ratio] 1.2 {ratio} Invalid Interpretation Code 1.1 - 2.5 ratio AO ADM SS ALP [Catalytic activity/Vol] 84 U/L Invalid Interpretation Code 135 - 450 U/L AO ADM SS ALT With P-5'-P [Catalytic activity/Vol] 21 U/L Invalid Interpretation Code 14 - 59 U/L AO ADM SS AST With P-5'-P [Catalytic activity/Vol] 16 U/L Invalid Interpretation Code 10 - 40 U/L AO ADM SS Bili Indirect Unable to Calculate Invalid Interpretation Code AO Chemistry S Comment on above: Result Comment: Unab le to calculate this test result accurately. Results used to calculate this test are outside the reportable range. Bilirubin [Mass/Vol] 0.2 mg/dL Invalid Interpretation Code 0.2 - 1.0 mg/dL AO ADM SS Bilirubin.direct [Mass/Vol] mg/dL Invalid Interpretation Code 0.0 - 0.2 mg/dL AO ADM SS Cholesterol [Mass/Vol] 188 mg/dL Invalid Interpretation Code 0 - 200 mg/dL AO ADM SS Cholesterol in HDL [Mass/Vol] 60 mg/dL Invalid Interpretation Code 40 - 60 mg/dL AO ADM SS Cholesterol in LDL [Mass/Vol] 112 mg/dL Invalid Interpretation Code 0 - 130 mg/dL AO ADM SS Globulin 3.3 G/dL Invalid Interpretation Code AO ADM SS Protein [Mass/Vol] 7.4 G/dL Invalid Interpretation Code 6.4 - 8.2 G/dL AO ADM SS Triglyceride [Mass/Vol] 82 mg/dL Invalid Interpretation Code 0 - 150 mg/dL AO ADM SS LABORATORYOrdered By: Tiffanie Barajas on 04-27-2021 Basophil, Absolute 0.00 103/mcL Invalid Interpretation Code 0.00 - 0.19 10^3/mcL AO Auto Heme SS Basophils/100 WBC (Bld) 0.4 % Invalid Interpretation Code 0.0 - 2.5 % AO Auto Heme SS Eosinophil, Absolute 0.20 103/mcL Invalid Interpretation Code 0.00 - 0.40 10^3/mcL AO Auto Heme SS Eosinophils/100 WBC (Bld) 3.0 % Invalid Interpretation Code 0.0 - 7.0 % AO Auto Heme SS Erythrocyte distribution width (RBC) [Ratio] 12.5 % Invalid Interpretation Code 11.5 - 14.5 % AO Auto Heme SS Hematocrit (Bld) [Volume fraction] 44.7 % Invalid Interpretation Code 37.0 - 47.0 % AO Auto Heme SS Hemoglobin (Bld) [Mass/Vol] 15.3 G/dL Invalid Interpretation Code 12.0 - 16.0 G/dL AO Auto Heme SS Lymphocyte, Absolute 2.40 103/mcL Invalid Interpretation Code 0.77 - 3.85 10^3/mcL AO Auto Heme SS Lymphocytes/100 WBC (Bld) 39.2 % Invalid Interpretation Code 10.0 - 50.0 % AO Auto Heme SS MCH (RBC) [Entitic mass] 31.5 pg Invalid Interpretation Code 27.0 - 31.2 pg AO Auto Heme SS MCHC (RBC) [Mass/Vol] 34.2 G/dL Invalid Interpretation Code 33.0 - 37.0 G/dL AO Auto Heme SS MCV (RBC) [Entitic vol] 92.0 fL Invalid Interpretation Code 80.0 - 94.0 fL AO Auto Heme SS Monocyte, Absolute 0.50 103/mcL Invalid Interpretation Code 0.15 - 1.00 10^3/mcL AO Auto Heme SS Monocytes/100 WBC (Bld) 8.0 % Invalid Interpretation Code 1.7 - 13.0 % AO Auto Heme SS Neutrophil, Absolute 3.00 103/mcL Invalid Interpretation Code 2.85 - 6.16 10^3/mcL AO Auto Heme SS Neutrophils/100 WBC (Bld) 49.4 % Invalid Interpretation Code 37.0 - 80.0 % AO Auto Heme SS Platelet mean volume (Bld) [Entitic vol] 8.8 fL Invalid Interpretation Code 7.4 - 10.4 fL AO Auto Heme SS Platelets (Bld) [#/Vol] 350 103/mcL Invalid Interpretation Code 130 - 400 10^3/mcL AO Auto Heme SS RBC (Bld) [#/Vol] 4.85 106/mcL Invalid Interpretation Code 3.63 - 4.46 10^6/mcL AO Auto Heme SS WBC (Bld) [#/Vol] 6.10 103/mcL Invalid Interpretation Code 4.60 - 10.80 10^3/mcL AO Auto Heme SS LABORATORYOrdered By: Dawna See on 04-08-2021 ADMITTED TO INTENSIVE CARE UNIT FOR CONDITION OF INTEREST:FIND:PT:^PAT IENT:ORD: No (04/08/21 11:53 AM) Invalid Interpretation Code AO Auto Urine SS EMPLOYED IN A HEALTHCARE SETTING:FIND:PT:^CARMELINA ENT:ORD: Unknown (04/08/21 11:53 AM) Invalid Interpretation Code AO Auto Urine SS FIRST TEST FOR CONDITION OF INTEREST:FIND:PT:^PAT IENT:ORD: Unknown (04/08/21 11:53 AM) Invalid Interpretation Code AO Auto Urine SS HAS SYMPTOMS RELATED TO CONDITION OF INTEREST:FIND:PT:^PAT IENT:ORD: Yes (04/08/21 11:53 AM) Invalid Interpretation Code AO Auto Urine SS Illness or injury onset date and time [id number] Invalid Interpretation Code AO Auto Urine SS Patient was hospitalized because of this condition No (04/08/21 11:53 AM) Invalid Interpretation Code AO Auto Urine SS status Unknown (04/08/21 11:53 AM) Invalid Interpretation Code AO Auto Urine SS RESIDES IN A CONGREGATE CARE SETTING:FIND:PT:^CARMELINA ENT:ORD: Unknown (04/08/21 11:53 AM) Invalid Interpretation Code AO Auto Urine SS SARS-CoV-2 (COVID-19) RNA AMRIT+probe Ql (Resp) Negative (04/08/21 11:53 AM) Invalid Interpretation Code Negative AO Auto Urine SS SARS-CoV-2 (COVID-19) RNA AMRIT+probe Ql (Unsp spec) Negative results do not preclude SARS-CoV-2 infection and should not be used as the sole basis for patient management decisions. Negative results must be combined with clinical observations, patient history, and epidemiological information.There is a risk of false negative values resulting from improperly collected, transported, or handled specimens.There is a risk of false negative values due to the presence of sequence variants in the pathogen targets of the assay, procedural errors, amplification inhibitors in specimens, or inadequate numbers of organisms for amplification.ZACH SARS-CoV-2 Assay is a Real-Time reverse-transcriptase polymerase chain reaction (RT-PCR) based qualitative in vitro diagnostic test intended for the qualitative detection of nucleic acid from the SARS-CoV-2 in nasopharyngeal swab specimens collected from individuals suspected of COVID-19 by their healthcare provider. Testing is limited to laboratories certified under the Clinical Laboratory Improvement Amendments of 1988 (CLIA), 42 U.S.C. 263a, to perform moderate and high complexity tests. Invalid Interpretation Code AO Auto Urine SS Vital Signs Date Time Vital Sign Value Performing Clinician Facility 11-21-2024 15:48-0400 Body temperature 98.4 [degF] Dr. Nataly Thorpe DO Work Phone: [facility] 11-21-2024 15:48-0400 Diastolic blood pressure 84 mm[Hg] Dr. Nataly Thorpe DO Work Phone: [facility] 11-21-2024 15:48-0400 Heart rate 96 /min Dr. Nataly Thorpe DO Work Phone: [facility] 11-21-2024 15:48-0400 Respiratory rate 16 /min Dr. Nataly Thorpe DO Work Phone: [facility] 11-21-2024 15:48-0400 SaO2% (BldA) [Mass fraction] 97 % Dr. Nataly Thorpe DO Work Phone: [facility] 11-21-2024 15:48-0400 Systolic blood pressure 122 mm[Hg] Dr. Nataly Thorpe DO Work Phone: [facility] 10-29-2024 13:18-0400 Body temperature 98.4 [degF] Dr. Nataly Thorpe DO Work Phone: [facility] 10-29-2024 13:18-0400 Diastolic blood pressure 86 mm[Hg] Dr. Nataly Thorpe DO Work Phone: [facility] 10-29-2024 13:18-0400 Heart rate 88 /min Dr. Nataly Thorpe DO Work Phone: [facility] 10-29-2024 13:18-0400 SaO2% (BldA) [Mass fraction] 98 % Dr. Nataly Thorpe DO Work Phone: [facility] 10-29-2024 13:18-0400 Systolic blood pressure 126 mm[Hg] Dr. Nataly Thorpe DO Work Phone: [facility] 10-22-2024 14:53-0400 Body temperature 98.4 [degF] Dr. Nataly Thorpe DO Work Phone: [facility] 10-22-2024 14:53-0400 Diastolic blood pressure 78 mm[Hg] Dr. Nataly Thorpe DO Work Phone: [facility] 10-22-2024 14:53-0400 Heart rate 78 /min Dr. Nataly Thorpe DO Work Phone: [facility] 10-22-2024 14:53-0400 Respiratory rate 16 /min Dr. Nataly Thorpe DO Work Phone: [facility] 10-22-2024 14:53-0400 SaO2% (BldA) [Mass fraction] 98 % Dr. Nataly Thorpe DO Work Phone: [facility] 10-22-2024 14:53-0400 Systolic blood pressure 134 mm[Hg] Dr. Nataly Thorpe DO Work Phone: [facility] 10-22-2024 11:40-0400 Body height 162.[address] Nataly Thorpe DO Work Phone: [facility] 10-22-2024 11:40-0400 Body mass index (BMI) [Percentile] Per age and sex 97.9 % Dr. Nataly Thorpe DO Work Phone: [facility] 10-22-2024 11:40-0400 Body mass index (BMI) [Ratio] 36.8 kg/m2 Dr. Nataly Thorpe DO Work Phone: [facility] 10-22-2024 11:40-0400 Body weight 97.[address] Nataly Thorpe DO Work Phone: [facility] 08-17-2024 14:17-0500 Body temperature 98.6 [degF] JERICHOKEISHA QUARLESVIJIANNE-MARIE DO [facility] 08-17-2024 14:17-0500 Diastolic Blood Pressure Non-Invasive 85 mm[Hg] JERICHOKEISHA QUARLESESKA DO [facility] 08-17-2024 14:17-0500 Heart rate 108 /min JERICHO KAYLYNNKA DO [facility] 08-17-2024 14:17-0500 Respiratory rate 16 /min JERICHO BROCK DO [facility] 08-17-2024 14:17-0500 Systolic Blood Pressure Non-Invasive 128 mm[Hg] JERICHO DURESKA DO [facility] 08-02-2024 13:19-0500 Body temperature 98.8 [degF] Cornelius Ball LOG SORTING SUPERVISOR.MANPOWER DEVELOPMENT SPECIALIST MANAGER Work Phone: [facility] 08-02-2024 13:19-0500 Diastolic blood pressure 94 mm[Hg] Cornelius Ball LOG SORTING SUPERVISOR.MANPOWER DEVELOPMENT SPECIALIST MANAGER Work Phone: [facility] 08-02-2024 13:19-0500 Heart rate 103 /min Cornelius Ball LOG SORTING SUPERVISOR.MANPOWER DEVELOPMENT SPECIALIST MANAGER Work Phone: [facility] 08-02-2024 13:19-0500 Respiratory rate 16 /min Cornelius Ball LOG SORTING SUPERVISOR.MANPOWER DEVELOPMENT SPECIALIST MANAGER Work Phone: [facility] 08-02-2024 13:19-0500 SaO2% (BldA) [Mass fraction] 97 % Cornelius Ball LOG SORTING SUPERVISOR.MANPOWER DEVELOPMENT SPECIALIST MANAGER Work Phone: [facility] 08-02-2024 13:19-0500 Systolic blood pressure 137 mm[Hg] Cornelius Plummer APRN.MANPOWER DEVELOPMENT SPECIALIST MANAGER Work Phone: [facility] 07-28-2024 09:35-0500 Body temperature 96.69 [degF] Herrera Wormald PA-C Work Phone: [facility] 07-28-2024 09:35-0500 Body weight 97.1 kg Herrera Wormald PA-C Work Phone: [facility] 07-28-2024 09:35-0500 Diastolic blood pressure 82 mm[Hg] Herrera Wormald PA-C Work Phone: [facility] 07-28-2024 09:35-0500 Heart rate 100 /min Herrera Wormald PA-C Work Phone: [facility] 07-28-2024 09:35-0500 SaO2% (BldA) [Mass fraction] 98 % Herrera Wormald PA-C Work Phone: [facility] 07-28-2024 09:35-0500 Systolic blood pressure 116 mm[Hg] Herrera Wormald PA-C Work Phone: [facility] 07-12-2024 15:36-0500 Body height 162.6 cm Herrera Wormald PA-C Work Phone: [facility] 07-12-2024 15:36-0500 Body mass index (BMI) [Percentile] Per age and sex 97.56 % Herrera Wormald PA-C Work Phone: [facility] 07-12-2024 15:36-0500 Body mass index (BMI) [Ratio] 36.16 kg/m2 Herrera Wormald PA-C Work Phone: [facility] 07-12-2024 15:36-0500 Body temperature 99 [degF] Herrera Wormald PA-C Work Phone: [facility] 07-12-2024 15:36-0500 Body weight 95.55 kg Herrera Wormald PA-C Work Phone: [facility] 07-12-2024 15:36-0500 Diastolic blood pressure 73 mm[Hg] Herrera Wormald PA-C Work Phone: [facility] 07-12-2024 15:36-0500 Heart rate 90 /min Herrera Wormald PA-C Work Phone: [facility] 07-12-2024 15:36-0500 Respiratory rate 16 /min Herrera Wormald PA-C Work Phone: [facility] 07-12-2024 15:36-0500 SaO2% (BldA) [Mass fraction] 99 % Herrera Wormald PA-C Work Phone: [facility] 07-12-2024 15:36-0500 Systolic blood pressure 129 mm[Hg] Herrera Wormald PA-C Work Phone: [facility] 02-25-2024 17:30-0400 Body temperature 97.7 [degF] NAGI STEPHENS DO [facility] 02-25-2024 17:30-0400 Body weight 97 kg NAGI STEPHENS DO [facility] 02-25-2024 17:30-0400 Diastolic Blood Pressure Non-Invasive 86 mm[Hg] NAGI HILL DO [facility] 02-25-2024 17:30-0400 Heart rate 104 /min NAGI HILL DO [facility] 02-25-2024 17:30-0400 Respiratory rate 16 /min NAGI HILL DO [facility] 02-25-2024 17:30-0400 Systolic Blood Pressure Non-Invasive 143 mm[Hg] NAGI HILL DO [facility] 06-21-2023 08:20-0500 Body height 162.6 cm ALCON MARTIN MD [facility] 06-21-2023 08:20-0500 Body temperature 98.24 [degF] ALCON MARTIN MD [facility] 06-21-2023 08:20-0500 Body weight 73.3 kg ALCON MARTIN MD [facility] 06-21-2023 08:20-0500 Diastolic Blood Pressure Non-Invasive 87 mm[Hg] ALCON MARTIN MD [facility] 06-21-2023 08:20-0500 Heart rate 95 /min ALCON MARTIN MD [facility] 06-21-2023 08:20-0500 Height ZScore -0.08 1 ALCON MARTIN MD [facility] Comment on above: Result Comment: ^~:!ZScore Source -[facility] 06-21-2023 08:20-0500 Percent Height for Age 46.90 % ALCON MARTIN MD [facility] Comment on above: Result Comment: ^~:!Percentile Source -[facility] 06-21-2023 08:20-0500 Respiratory rate 18 /min ALCON MARTIN MD [facility] 06-21-2023 08:20-0500 Systolic Blood Pressure Non-Invasive 127 1 ALCON MARTIN MD [facility] 08-12-2022 19:18-0500 Body temperature 99.61 [degF] Elmer Marques MD Work Phone: [facility] 08-12-2022 19:18-0500 Body weight 74.12 kg Elmer Marques MD Work Phone: [facility] 08-12-2022 19:18-0500 Diastolic blood pressure 82 mm[Hg] Elmer Marques MD Work Phone: [facility] 08-12-2022 19:18-0500 Heart rate 111 /min Elmer Marques MD Work Phone: [facility] 08-12-2022 19:18-0500 Respiratory rate 18 /min Elmer Marques MD Work Phone: [facility] 08-12-2022 19:18-0500 SaO2% (BldA) [Mass fraction] 98 % Elmer Marques MD Work Phone: [facility] 08-12-2022 19:18-0500 Systolic blood pressure 124 mm[Hg] Elmer Marques MD Work Phone: [facility] 10-19-2021 21:10-0400 Body temperature 98.6 [degF] DR MARLENI PHELPS MD [facility] 10-19-2021 21:10-0400 Diastolic blood pressure 92 mm[Hg] DR MARLENI PHELPS MD [facility] 10-19-2021 21:10-0400 Heart rate 120 /min DR MARLENI PHELPS MD [facility] 10-19-2021 21:10-0400 Respiratory rate 18 /min DR MARLENI PHELPS MD [facility] 10-19-2021 21:10-0400 Systolic blood pressure 152 mm[Hg] DR MARLENI PHELPS MD [facility] Encounters Encounter Date Encounter Type Care Provider Facility Start: 04-29-2025 ambulatory LUPILLO GOLDMAN DO Facil ity:A Start: 03-07-2025 End: 03-07-2025 ambulatory LUPILLO Vikas GOLDMAN DO [facility] Start: 03-07-2025 End: 03-07-2025 Patient encounter procedure LUPILLO GOLDMAN DO [facility] Start: 02-28-2025 End: 02-28-2025 ambulatory LUPILLO Vikas GOLDMAN DO [facility] Start: 02-28-2025 End: 02-28-2025 Patient encounter procedure AIDAN VÁZQUEZ LOG SORTING SUPERVISOR-MANPOWER DEVELOPMENT SPECIALIST MANAGER [facility] Start: 02-17-2025 End: 02-21-2025 ambulatory LUPILLO Vikas RODDYRAJENDRA DO [facility] Start: 02-17-2025 End: 02-21-2025 Outreach Lab LOYDA MARTINEZ LOG SORTING SUPERVISOR-MANPOWER DEVELOPMENT SPECIALIST MANAGER [facility] Start: 11-21-2024 End: 11-21-2024 Patient encounter procedure Tim Han [facility] Work Phone: Start: 11-21-2024 End: 11-21-[address] Nataly Thorpe DO Work Phone: [facility] Work Phone: Start: 11-21-2024 ambulatory LUPILLO GOLDMAN DO Facil ity:[facility] Start: 11-14-2024 End: 11-18-2024 ambulatory LUPILLO Vikas GOLDMAN DO [facility] Start: 11-14-2024 End: 11-18-2024 Outreach Lab LUPILLO GOLDMAN DO [facility] Start: 10-29-2024 End: 10-29-2024 Patient encounter procedure April Pack PA [facility] Work Phone: Start: 10-29-2024 End: 10-29-[address] Nataly Thorpe DO Work Phone: [facility] Work Phone: Start: 10-29-2024 End: 10-29-2024 ambulatory [facility] Facility:[facility] Start: 10-22-2024 End: 10-22-2024 Emergency department patient visit Dr. Nataly Thorpe DO Work Phone: -Emergency Department Work Phone: Start: 10-21-2024 End: 10-21-2024 ambulatory ELLIOT RIZVI LOG SORTING SUPERVISOR-MANPOWER DEVELOPMENT SPECIALIST MANAGER Facility:[facility] Start: 10-21-2024 End: 10-21-2024 Patient encounter procedure ELLIOT RIZVI LOG SORTING SUPERVISOR-MANPOWER DEVELOPMENT SPECIALIST MANAGER [facility] Start: 08-17-2024 End: 08-17-2024 Emergency department patient visit JERICHO BROCK DO [facility] Start: 08-03-2024 End: 10-03-2024 Follow-up encounter Peg Cantu PA-C Work Phone: [facility] Start: 08-02-2024 End: 08-02-2024 ambulatory [facility] Facility:[facility] Start: 08-02-2024 End: 08-02-2024 Office outpatient visit 25 minutes Corenlius Plummer APRN.MANPOWER DEVELOPMENT SPECIALIST MANAGER Work Phone: [facility] Comment on above: Viral URI with cough (Primary Dx); Fever, unspecified fever cause Start: 07-28-2024 End: 07-28-2024 ambulatory [facility] Facility:[facility] Start: 07-28-2024 End: 07-28-2024 Patient encounter procedure Herrera Camacho PA-C Work Phone: [facility] Comment on above: Viral URI (Primary D x); Sore throat; Nasal congestion; Fever, unspecified fever cause; RSV exposure Start: 07-12-2024 End: 07-12-2024 ambulatory NATALY Soha MAURILIO Facility:[facility] Start: 07-12-2024 End: 07-12-2024 Patient encounter procedure Herrera Camacho PA-C Work Phone: [facility] Comment on above: Puncture wound of ri ght index finger (Primary Dx); Need for tetanus booster Start: 06-04-2024 ambulatory NATALY EARLSAY DO Facil ity:[facility] Start: 02-25-2024 End: 02-25-2024 Emergency department patient visit NAGI [place] ANGELO NAIK Facility:[facility] Start: 11-03-2023 End: 11-07-2023 ambulatory SAYEDA MICHELLE LOG SORTING SUPERVISOR-MANPOWER DEVELOPMENT SPECIALIST MANAGER Facility:[facility] Start: 11-03-2023 End: 11-07-2023 Outreach Lab SAYEDA MICHELLE LOG SORTING SUPERVISOR-MANPOWER DEVELOPMENT SPECIALIST MANAGER [facility] Start: 10-10-2023 End: 10-14-2023 ambulatory SAYEDA MICHELLE LOG SORTING SUPERVISOR-MANPOWER DEVELOPMENT SPECIALIST MANAGER Facility:[facility] Start: 10-10-2023 End: 10-14-2023 Outreach Lab SAYEDA MICHELLE LOG SORTING SUPERVISOR-MANPOWER DEVELOPMENT SPECIALIST MANAGER [facility] Start: 06-28-2023 End: 06-28-2023 ambulatory ELLIOT AGUILERAETLER LOG SORTING SUPERVISOR-MANPOWER DEVELOPMENT SPECIALIST MANAGER Facility:[facility] Start: 06-28-2023 End: 06-28-2023 Patient encounter procedure ELLIOT BELKYS LOG SORTING SUPERVISOR-MANPOWER DEVELOPMENT SPECIALIST MANAGER [facility] Start: 06-21-2023 End: 06-21-2023 Emergency department patient visit ALCON MARTIN MD [facility] Start: 06-03-2023 End: 06-07-2023 ambulatory RICH LOG SORTING SUPERVISOR-MANPOWER DEVELOPMENT SPECIALIST MANAGER Facility:[facility] Start: 06-03-2023 End: 06-07-2023 Outreach Lab [id number] KEENE LOG SORTING SUPERVISOR-MANPOWER DEVELOPMENT SPECIALIST MANAGER [facility] Start: 05-24-2023 End: 05-24-2023 ambulatory [place] Jeffy [facility] Start: 03-27-2023 End: 03-27-2023 ambulatory CARISA J [facility] Start: 03-22-2023 End: 03-22-2023 ambulatory [facility] Start: 03-02-2023 End: 03-06-2023 ambulatory BOLA TERRAZAS DO Facility:[facility] Start: 03-02-2023 End: 03-06-2023 Outreach Lab BOLA TERRAZAS DO [facility] Start: 01-19-2023 End: 01-20-2023 ambulatory [facility] Start: 01-19-2023 End: 01-19-2023 Subsequent hospital visit by physician Carisa Reece LOG SORTING SUPERVISOR-MANPOWER DEVELOPMENT SPECIALIST MANAGER Work Phone: [facility] Comment on above: Dizziness Start: 01-19-2023 End: 01-19-2023 ambulatory [facility] Start: 12-28-2022 ambulatory [facility] Start: 08-12-2022 End: 08-12-2022 Patient encounter procedure Elmer Marques MD Work Phone: [facility] Comment on above: Sore throat (Primary Dx) Start: 08-02-2022 End: 08-02-2022 Patient encounter procedure KRISTIN CHAVEZ LOG SORTING SUPERVISOR-MANPOWER DEVELOPMENT SPECIALIST MANAGER [facility] Start: 06-20-2022 End: 06-24-[address] SARIAH KENDRICK DO [facility] Start: 03-01-2022 End: 03-05-2022 Outreach Lab TAMMI BRIZUELA LOG SORTING SUPERVISOR-MANPOWER DEVELOPMENT SPECIALIST MANAGER [facility] Start: 10-19-2021 End: 10-19-2021 Emergency department patient visit DR MARLENI PHELPS MD [facility] Start: 04-27-2021 End: 04-27-2021 Patient encounter procedure RENNY BOWSER PA-C [facility] Start: 04-08-2021 End: 04-08-[address] SARIAH KENDRICK DO [facility] Procedures Date Procedure Procedure Detail Performing Clinician Start: 10-29-2024 X-ray of ankle, thre e or more views Dr. Nataly Thorpe DO Work Phone: Start: 10-22-2024 X-ray of ankle, thre e or more views Dr. Nataly Thorpe DO Work Phone: Start: 07-28-2024 STREP A MOLECULAR (POC) Herrera Camacho PA-C Work Phone: Start: 01-19-2023 Basic metabolic pane l calcium total Carisa Reece LOG SORTING SUPERVISOR-MANPOWER DEVELOPMENT SPECIALIST MANAGER Work Phone: Start: 01-19-2023 COMPLETE BLOOD COUNT WITH DIFFERENTIAL Carisa Reece LOG SORTING SUPERVISOR-MANPOWER DEVELOPMENT SPECIALIST MANAGER Work Phone: Start: 08-12-2022 STREP A MOLECULAR (POC) Marimar Bui LOG SORTING SUPERVISOR.MANPOWER DEVELOPMENT SPECIALIST MANAGER Work Phone: None (qualifier value) SAYED Tram MARTINEZ LOG SORTING SUPERVISOR-MANPOWER DEVELOPMENT SPECIALIST MANAGER Plan of Treatment Date Care Activity Detail Author Start: 07-12-2034 Urine microalbumin profile DTaP,Tdap,Td Vaccine (9 - Td or Tdap) [facility] Start: 10-29-2024 Patient referral [facility] Work Phone: Start: 10-22-2024 [facility] Start: 02-25-2024 Covid-19 Vaccine ( season) Covid-19 Vaccine ( season) [facility] Start: 02-25-2024 Influenza vaccination Influenza Vacc ine (#1) [facility] Start: 2023 Anxiety Screening Anxiety Screening [facility] Start: 2023 Depression Screening Depression Scre ening [facility] Start: 2023 GC (Gonorrhea) Scree maryann (18-24) GC (Gonorrhea) Screening (18-24) [facility] Start: 2023 Hepatitis C screening Hepatitis C Sc reening [facility] Start: 2023 HIV screening HIV Screening [facility] Start: 2023 Screening for Chlamy viet trachomatis Chlamydia Screening (18) [facility] Start: 03-22-2023 End: 03-22-2023 Patient encounter procedure 03/22/2023 1:00 PM EDT Office Visit [address], [address] [facility] [facility] [place] [address] Carisa Reece, LOG SORTING SUPERVISOR-[facility] [place], [place] [id number] [facility] Start: 02-24-2023 FLU (#1) FLU (#1) [facility] Start: 02-24-2022 Influenza vaccination INFLUENZA (#1) [facility] Start: 2021 MenACWY (1 - 2-dose series) MenACWY (1 - 2-dose series) [facility] Start: 2021 MenB (1 of 2 - MenB 2-Dose Series Bexsero) MenB (1 of 2 - MenB 2-Dose Series Bexsero) [facility] Start: 2021 MENINGOCOCCAL CONJUG ATE (1 - 2-dose series) MENINGOCOCCAL CONJUGATE (1 - 2-dose series) [facility] Start: 2020 CHLAMYDIA SCREENING (<18) CHLAMYDIA SCREENING (<18) [facility] Start: 2020 GC (GONORRHEA) SCREE MARYANN (<18) GC (GONORRHEA) SCREENING (<18) [facility] Start: 2020 Hearing Screening Hearing Screening [facility] [facility] Start: 2020 HPV Vaccine (1 - 3-d ose series) HPV Vaccine (1 - 3-dose series) [facility] Start: 2020 Vision Screening Vision Screening [facility] Start: 2019 PEDS TO ADULT TRANSI TION ANNUAL ASSESSMENT PEDS TO ADULT TRANSITION ANNUAL ASSESSMENT [facility] Start: 2017 Adult depression screening assessment DEPRESSION SCREENING [facility] Start: 2017 PEDS TO ADULT TRANSI TION INITIAL DISCUSSION PEDS TO ADULT TRANSITION INITIAL DISCUSSION [facility] Start: 2016 HPV (1 - 2-dose series) HPV (1 - 2-d ose series) [facility] Start: 2016 HPV VACCINE (1 - 2-d ose series) HPV VACCINE (1 - 2-dose series) [facility] Start: 2015 MENINGOCOCCAL B: Consider based on risk (1 of 2 - Risk Bexsero 2-dose series) MENINGOCOCCAL B: Consider based on risk (1 of 2 - Risk Bexsero 2-dose series) [facility] Start: 2012 Tetanus Diphtheria a nd Pertussis Vaccines (1 - Tdap) Tetanus Diphtheria and Pertussis Vaccines (1 - Tdap) [facility] Start: 2012 Urine microalbumin profile DTAP,TDAP,TD (1 - Tdap) [facility] Start: 2006 Hepatitis A (1 of 2 - 2-dose series) Hepatitis A (1 of 2 - 2-dose series) [facility] Start: 2006 MMR (1 of 2 - Standa rd series) MMR (1 of 2 - Standard series) [facility] Start: 2006 VARICELLA (1 of 2 - 2-dose childhood series) VARICELLA (1 of 2 - 2-dose childhood series) [facility] Start: 01-19-2006 COVID-19 (#1) COVID-19 (#1) [facility] Start: 01-19-2006 COVID-19 VACCINE (#1) COVID-19 VACCI NE (#1) [facility] Start: 2005 POLIO (1 of 3 - 4-do se series) POLIO (1 of 3 - 4-dose series) [facility] Start: 2005 HEPATITIS B (1 of 3 - 3-dose series) HEPATITIS B (1 of 3 - 3-dose series) [facility] COVID & INFLUENZA A/ B & RSV PCR, ROUTINE COVID & INFLUENZA A/B & RSV PCR, ROUTINE Microbiology Routine Sore throat Nasal congestion Fever, unspecified fever cause RSV exposure Ordered: 07/28/2024 [facility] Work Phone: Comment on above: Ordered: 07/28/2024 COVID & INFLUENZA A/ B & RSV PCR, ROUTINE COVID & INFLUENZA A/B & RSV PCR, ROUTINE Microbiology Routine Viral URI with cough Fever, unspecified fever cause Ordered: 08/02/2024 [facility] Work Phone: Comment on above: Ordered: 08/02/2024 Patient Education ED Sprain Ankle [facility] Work Phone: Patient referral [facility] Work Phone: Immunizations Immunization Date Immunization Notes Care Provider David hopson 07-12-2024 tetanus toxoid, redu doroteo diphtheria toxoid, and acellular pertussis vaccine, adsorbed Herrera Camacho PA-C Work Phone: [facility] 11-08-2023 meningococcal B vacc ine, recombinant, OMV, adjuvanted; Translations: [Bexsero] NAGI STEPHENS DO [facility] 10-12-2023 meningococcal B vacc ine, recombinant, OMV, adjuvanted; Translations: [Bexsero] OLYDA RYAN [facility] 12-13-2022 meningococcal oligosaccharide (groups A, C, Y and W-135) diphtheria toxoid conjugate vaccine (MCV4O); Translations: [Menveo] BOLA TERRAZAS DO [facility] 12-19-2017 diphtheria and tetan us toxoids, adsorbed for pediatric use [facility] phorus [facility] Comment on above: Result Comment: Outs leon Source Comment: Location History: [facility] 12-19-2017 meningococcal oligosaccharide (groups A, C, Y and W-135) diphtheria toxoid conjugate vaccine (MCV4O) Herrera MURCIA-C Work Phone: [facility] 12-19-2017 meningococcal polysaccharide (groups A, C, Y and W-135) diphtheria toxoid conjugate vaccine (MCV4P) DR SARIAH KENDRICK DO [facility] Comment on above: Location History: [facility] 12-19-2017 tetanus toxoid, redu doroteo diphtheria toxoid, and acellular pertussis vaccine, adsorbed DR SARIAH KENDRICK DO [facility] Comment on above: Location History: [facility] 11-05-2010 tuberculin skin test ; purified protein derivative solution, intradermal Herrera MURCIA-C Work Phone: [facility] 11-27-2009 diphtheria, tetanus toxoids and acellular pertussis vaccine [facility] phorus [facility] Comment on above: Result Comment: Rout e: Unknown Social Services Technician: [employer] (SKB) Outside Source Comment: Diphtheria, tetanus toxoids and acellular pertussis vaccine, and poliovirus vaccine, inactivated 11-27-2009 Diphtheria, tetanus toxoids and acellular pertussis vaccine, and poliovirus vaccine, inactivated Herrera Camacho PA-C Work Phone: [facility] 11-27-2009 measles, mumps and rubella virus vaccine Herrera Wormald PA-C Work Phone: [facility] 11-27-2009 measles/mumps/rubell a virus vaccine [facility] MARYVALECreditPoint SoftwareNUrban Met[employer] [facility] Comment on above: Result Comment: Rout e: Unknown Social Services Technician: Merck (MSD) Outside Source Comment: measles, mumps and rubella virus vaccine 11-27-2009 varicella virus vaccine [facility] Comment on above: Result Comment: Rout e: Unknown Social Services Technician: Merck (MSD) Outside Source Comment: varicella virus vaccine 10-30-2009 tuberculin skin test ; purified protein derivative solution, intradermal Herrera Wormald PA-C Work Phone: [facility] 07-07-2009 influenza virus vacc ine, H1N1, live [facility] Comment on above: Result Comment: Rout e: Unknown Social Services Technician: [employer] Karina. (NOV) Outside Source Comment: Novel [id number], injectable 07-07-2009 novel influenza-H1N1 -09, injectable Herrera Wormald PA-C Work Phone: [facility] 07-07-2009 influenza virus vacc ine, unspecified formulation Herrera Wormald PA-C Work Phone: [facility] 03-26-2009 influenza virus vacc ine, whole virus Herrera Wormald PA-C Work Phone: [facility] 10-21-2008 tuberculin skin test ; purified protein derivative solution, intradermal Herrera Wormald PA-C Work Phone: [facility] 12-03-2007 diphtheria, tetanus toxoids and acellular pertussis vaccine [facility] Comment on above: Result Comment: Rout e: Unknown Social Services Technician: [employer] (SKB) Outside Source Comment: diphtheria, tetanus toxoids and acellular pertussis vaccine 12-03-2007 haemophilus influenz ae type b vaccine, PRP-T conjugate [facility] Comment on above: Result Comment: Rout e: Unknown Social Services Technician: Sanofi Pasteur (PMC) Outside Source Comment: Haemophilus influenzae type b vaccine, PRP-T conjugate 12-03-2007 hepatitis A vaccine, pediatric dosage, unspecified formulation [facility] MARYVALERadio NEXT [facility] Comment on above: Result Comment: Rout e: Unknown Social Services Technician: Merck (MSD) Outside Source Comment: hepatitis A vaccine, pediatric/adolescent dosage, 2 dose schedule 12-03-2007 hepatitis A vaccine, pediatric/adolescent dosage, 2 dose schedule Herrera [employer] Yet PA-C Work Phone: [facility] 10-04-2006 hepatitis A vaccine, pediatric dosage, unspecified formulation [facility] [employer] [facility] Comment on above: Result Comment: Rout e: Unknown Social Services Technician: Transcribed (TRS) Outside Source Comment: hepatitis A vaccine, pediatric/adolescent dosage, 2 dose schedule 10-04-2006 hepatitis A vaccine, pediatric/adolescent dosage, 2 dose schedule HerreraReflexion Health PA-C Work Phone: [facility] 10-04-2006 measles, mumps and rubella virus vaccine AND[employer]ze PA-C Work Phone: [facility] 10-04-2006 measles/mumps/rubell a virus vaccine [facility] [employer] [facility] Comment on above: Result Comment: Rout e: Unknown Social Services Technician: Transcribed (TRS) Outside Source Comment: measles, mumps and rubella virus vaccine 10-04-2006 varicella virus vaccine [facility] [employer] [facility] Comment on above: Result Comment: Rout e: Unknown Social Services Technician: Transcribed (TRS) Outside Source Comment: varicella virus vaccine 04-04-2006 influenza virus vacc ine, split virus (incl. purified surface antigen) HerreraReflexion Health PA-C Work Phone: [facility] 02-16-2006 diphtheria, tetanus toxoids and acellular pertussis vaccine [facility] MARYVALERadio NEXT [facility] Comment on above: Result Comment: Rout e: Unknown Social Services Technician: Transcribed (TRS) Outside Source Comment: diphtheria, tetanus toxoids and acellular pertussis vaccine 02-16-2006 Diphtheria, tetanus toxoids and acellular pertussis vaccine, and poliovirus vaccine, inactivated LERICA KEENE LOG SORTING SUPERVISOR-MANPOWER DEVELOPMENT SPECIALIST MANAGER [facility] Comment on above: Result Comment: Rout e: Unknown Social Services Technician: Transcribed (TRS) Outside Source Comment: poliovirus vaccine, inactivated 02-16-2006 haemophilus influenz ae type b conjugate and Hepatitis B vaccine [facility] LOG SORTING SUPERVISOR-MANPOWER DEVELOPMENT SPECIALIST MANAGER [facility] Comment on above: Result Comment: Rout e: Unknown Social Services Technician: Transcribed (TRS) Outside Source Comment: Haemophilus influenzae type b conjugate and Hepatitis B vaccine 02-16-2006 pneumococcal conjuga te vaccine, 7 valent [facility] LOG SORTING SUPERVISOR-MANPOWER DEVELOPMENT SPECIALIST MANAGER [facility] Comment on above: Result Comment: Rout e: Unknown Social Services Technician: Transcribed (TRS) Outside Source Comment: pneumococcal conjugate vaccine, 7 valent 02-16-2006 poliovirus vaccine, inactivated Herrera Camacho PA-C Work Phone: [facility] 2005 diphtheria, tetanus toxoids and acellular pertussis vaccine [facility] LOG SORTING SUPERVISOR-MANPOWER DEVELOPMENT SPECIALIST MANAGER [facility] Comment on above: Result Comment: Rout e: Unknown Social Services Technician: Transcribed (TRS) Outside Source Comment: diphtheria, tetanus toxoids and acellular pertussis vaccine 2005 Diphtheria, tetanus toxoids and acellular pertussis vaccine, and poliovirus vaccine, inactivated [facility] MARYVALEICA KEENE LOG SORTING SUPERVISOR-MANPOWER DEVELOPMENT SPECIALIST MANAGER [facility] Comment on above: Result Comment: Rout e: Unknown Social Services Technician: Transcribed (TRS) Outside Source Comment: poliovirus vaccine, inactivated 2005 pneumococcal conjuga te vaccine, 7 valent [facility] LOG SORTING SUPERVISOR-MANPOWER DEVELOPMENT SPECIALIST MANAGER [facility] Comment on above: Result Comment: Rout e: Unknown Social Services Technician: Transcribed (TRS) Outside Source Comment: pneumococcal conjugate vaccine, 7 valent 2005 poliovirus vaccine, inactivated Herrera Wormald PA-C Work Phone: [facility] 2005 diphtheria, tetanus toxoids and acellular pertussis vaccine [facility] MARYVALERadio NEXT [facility] Comment on above: Result Comment: Rout e: Unknown Social Services Technician: Transcribed (TRS) Outside Source Comment: diphtheria, tetanus toxoids and acellular pertussis vaccine 2005 Diphtheria, tetanus toxoids and acellular pertussis vaccine, and poliovirus vaccine, inactivated [facility] MARYVALESalsa Bear StudiosMANPOWER DEVELOPMENT SPECIALIST MANAGER [facility] Comment on above: Result Comment: Rout e: Unknown Social Services Technician: Transcribed (TRS) Outside Source Comment: poliovirus vaccine, inactivated 2005 haemophilus influenz ae type b conjugate and Hepatitis B vaccine [facility] MARYVALERong360 KEENE phorus [facility] Comment on above: Result Comment: Rout e: Unknown Social Services Technician: Transcribed (TRS) Outside Source Comment: Haemophilus influenzae type b conjugate and Hepatitis B vaccine 2005 pneumococcal conjuga te vaccine, 7 valent [facility] MARYVALESalsa Bear StudiosMANPOWER DEVELOPMENT SPECIALIST MANAGER [facility] Comment on above: Result Comment: Rout e: Unknown Social Services Technician: Transcribed (TRS) Outside Source Comment: pneumococcal conjugate vaccine, 7 valent 2005 poliovirus vaccine, inactivated Herrera Wormald PA-C Work Phone: [facility] 2005 hepatitis B vaccine, pediatric or pediatric/adolescent dosage Herrera Wormald PA-C Work Phone: [facility] 2005 hepatitis B vaccine, unspecified formulation [facility] MARYVALECreditPoint SoftwareNUrban Metrics [facility] Comment on above: Result Comment: Rout e: Unknown Social Services Technician: Transcribed (TRS) Outside Source Comment: hepatitis B vaccine, pediatric or pediatric/adolescent dosage Payers Date Payer Category Payer Private Health Insurance [id number] 2024 Self-pay 2024 Unknown [id number] 2024 Government (not [facility] care or Medicaid) MIRIAM KOVACS [id number] 2024 Unknown UNKNOWN 2016 [facility] BLUE CARD PPO OOS [id number] [id number] 2016 Unknown [id number]. 1.13.159. [id number] 2016 Unknown [id number] 2005 Unknown [id number] 2.16.840.1.221030.3.579. 2.627 2005 Unknown [id number] 2.16.840.1.936923.3.579. 2.627 2005 Unknown [id number] 2.16.840.1.607567.3.579. 2. 2005 Unknown [id number] 2.16.840.1.377383.3.579. 2. 2005 Unknown [id number] 2.16840.1.842596.3.579. 2. 2005 Unknown [id number] 2.16.840.1.265637.3.579. 2. 2005 Unknown [id number] 2.16840.1.275251.3.579. 2. 2005 Unknown [id number] 2.16840.1.090407.3.579. 2. 2005 Unknown [id number] 2.840.1.592049.3.579. 2. 2005 Unknown [id number] 2.840.1.910967.3.579. 2. 2005 Unknown [id number] 2.840.1.881083.3.579. 2 1980 Unknown [id number] 2.16840.1.180698.3.579. 2 1980 Unknown [id number] 2.840.1.392149.3.579. 2 1980 Unknown [id number] 2.840.1.151041.3.579. 2 1980 Unknown [id number] 2.16840.1.103337.3.579. 2 1980 Unknown [id number] 2.16840.1.878205.3.579. 2 1980 Unknown [id number] 2.16840.1.540664.3.579. 2479 1980 Unknown [id number] 2.16.840.1.163903.3.579. 2.627 1980 Unknown [id number] 2.16.840.1.467934.3.579. 2.627 1980 Unknown [id number] 2.16.840.1.894719.3.579. 2.627 1980 Unknown [id number] 2.16.840.1.360795.3.579. 2.627 1980 Unknown [id number] 2.16.840.1.308232.3.579. 2.627 Unknown [id number] 2.16.840.1.296360.3.579. 2.462 Unknown [id number] 2.16.840.1.054573.3.579. 2.462 Unknown [id number] 2.16.840.1.306018.3.579. 2.462 Unknown [id number] 2.16.840.1.368327.3.579. 2.462 Social History Date Type Detail Facility Start: 01-29-2019 End: 02-28-2025 Never smoked tobacco (finding) [facility] Sex Assigned At [facility] History of tobacco use Passive smoker [facility] Start: 08-12-2022 End: 01-19-2023 Tobacco use and exposure Smokeless tobacco non-user [facility] Start: 08-12-2022 End: 07-12-2024 Alcohol intake Not Asked [facility] Start: 2005 Sex Assigned At Not on file [facility] Start: 01-19-2023 Alcohol intake Lifetime non-d marty (finding) [facility] Start: 12-18-2019 End: 06-04-2020 History of Social function [facility] Start: 12-18-2019 End: 06-04-2020 Alcohol Use Disorder Identification Test - Consumption [AUDIT-C] [facility] How often to you hav e a drink containing alcohol? Never [facility] Average Number of Drinks Not on file [facility] Start: 01-27-2014 End: 10-22-2024 Sex Female (finding) [facility] Start: 2005 Sex Assigned At Female W [facility] Functional Status Date Assessment Result Facility 08-17-2024 Functional Status Standard Safet y ID band on, Call device within reach, Bed in low position, Wheels locked, Bedside Cart Locked, Visitor at bedside, Safety level maintained [facility] 02-25-2024 Functional Status Standard Safet y ID band on, Call device within reach, Bed in low position, Wheels locked, Bedside Cart Locked, Visitor at bedside, Safety level maintained [facility] 06-21-2023 Functional Status Room check performed [facility] 10-19-2021 Functional Status [facility] Mental Status Date Assessment Result Facility 08-17-2024 Mental Status Orientation Oriented x 4 [facility] 08-17-2024 [facility]24 Mental Status Orientation Oriented x 4 [facility] 06-21-2023 Mental Status Oriented x 4 [facility] 10-19-2021 Mental Status [facility] Clinical Notes 08-18-2020 to 11-15-2024 LaboratoryRadiology Note Date & Type Note Facility 11-15-2024 Evaluation + Plan note Future Scheduled TestsOva + Parasite Exam 11/15/24[facility] Lab Send Out (Non-Blood Specimens) 11/15/24XR Spine Cervical w/ Flex/Ext 6 + Views 06/18/24MRI Shoulder w/o Contrast Right 06/12/24 [facility] 10-29-2024 Evaluation note Diagnosis Onset Date Resolution Right ankle sprain inactive October 62024 1:08pm [facility] Work Phone: 1(586) 991-426805-06-2025 Radiology Diagnostic study note [facility] Services [address] [place] [address] Ankle min 3 Views MR#: [id number] Acct: [id number] Name: KATHRYN GOMES Rep #: [id number] : 2005 F 19 From: Noel Guevara MD PCP: Dr. Nataly Thorpe DO Status: REG CLI Study:Ankle min 3 Views Date of Exam: Exam# [id number] Ordering Dr: [facility] PROCEDURE: ANKLE MIN 3 VIEWS 10/29/2024 REASON FOR EXAM: PAIN TECHNIQUE: 3 views of the right ankle COMPARISON: Right ankle 10/22/2024. RAD/Ankle min 3 Views IMPRESSION: Mild residual soft tissue swelling is seen over the lateral malleolus. ON THE LATERAL VIEW, NORMAL CONTOUR OF THE ACHILLES TENDON IS SEEN. NO ANKLE JOINT EFFUSION IS NOTED. THE ANKLE MORTISE APPEARS INTACT. No fracture or dislocation is seen. No arthritic process is noted. Reading Location: [place] [address] CC: Dr. Nataly Thorpe DO; DIVINA Murrell ~ Food Order Delivery Runner: Signed [facility]04-29-2025 Radiology Diagnostic study note [facility] Imaging Services [address] [place], [place] [id number] Ankle min 3 Views MR#: [id number] Acct: [id number] Name: KATHRYN GOMES Rep #: [id number] : 2005 F 19 From: Layne Sheriff MD PCP: Dr. Nataly Thorpe DO Status: PRE ER Study:Ankle min 3 Views Date of Exam: Exam# [id number] Ordering Dr: Allen Montejo. PROCEDURE: ANKLE MIN 3 VIEWS (RADANK), 10/22/2024 REASON FOR EXAM: INJURY TECHNIQUE: AP, lateral, and oblique views of the RIGHT ankle were obtained. COMPARISON: None FINDINGS: Fracture/dislocation: None visible. Joint space(s): Preserved. Soft tissues: Lateral malleolar soft tissue swelling. Foreign bodies: None visible. Bone mineralization: Unremarkable. Other: None. RAD/Ankle min 3 Views IMPRESSION: Lateral malleolar soft tissue swelling without visible acute displaced fracture. Reading Location: [id number] CC: Dr. Nataly Thorpe, DO; ED PHYSICIAN PROVIDER ~ Food Order Delivery Runner: Signed [facility]02-22-2025 Hospital Discharge instructions Patient Education 08/17/2024 16:14:57 Finger Sprain Finger Sprain A sprain is a stretching or tearing of the ligaments that hold a joint together. There are no broken bones. Sprains take 3 to 6 weeks or more to heal. A sprained finger may be treated with a splint or skip tape. This is when you tape the injured finger to the one next to it for support. Minor sprains may require no additional support. Home care Keep your hand elevated to reduce pain and swelling. This is very important during the first 48 hours. Apply an ice pack over the injured area for 15 to 20 minutes every 3 to 6 hours. You should do thisfor the first 24 to 48 hours. You can make an ice pack by filling a plastic bag that seals at the top with ice cubes and then wrapping it with a thin towel. Continue the use of ice packs for relief of pain and swelling as needed. As the ice melts, be careful to avoid getting any wrap or splint wet.After 48 hours, apply heat (warm shower or warm bath) for 15 to 20 minutes several times a day, or alternate ice and heat. If skip tape was applied and it becomes wet or dirty, change it. You may replace it with paper, plastic or cloth tape. Cloth tape and paper tapes must be kept dry. Apply gauze or cotton padding between the fingers, especially at the webbed space. This will help prevent the skin from getting moist and breaking down. Keep the skip tape in place for at least 4 weeks, or as instructed by your healthcare provider. If a splint was applied, wear it for the time advised. You may use cyre-zvk-drbdamx pain medicine to control pain, unless another pain medicine was prescribed. If you have chronic liver or kidney disease or ever had a stomach ulcer or gastrointestinal bleeding, talk with your healthcare provider before using these medicines. Follow-up care Follow up with your healthcare provider, or as directed. Finger joints will become stiff if immobile for too long. If a splint was applied, ask your healthcare provider when it is safe to begin yctky-gn-zoeukh exercises. Sometimes fractures don t show up on the first X-ray. Bruises and sprains can sometimes hurt as much as a fracture. These injuries can take time to heal completely. If your symptoms don t improve or they get worse, talk with your healthcare provider. You may need a repeat X-ray. If X-rays were taken, you will be told of any new findings that may affect your care. When to seek medical advice Call your healthcare provider right away if any of these occur: Pain or swelling increases Fingers or hand becomes cold, blue, numb, or tingly [phone] [employer] [address] [place] [address]. All rights reserved. This information is not intended as a substitute for professional medical care. Always follow yourhealthcare professional's instructions. 08/17/2024 16:14:55 Finger Contusion Finger Contusion You have a contusion. This is also called a bruise. There is swelling and some bleeding under the skin, but no broken bones. This injury generally takes a few days to a few weeks to heal. During thattime, the bruise will typically change in color from reddish, to purple-blue, to greenish-yellow, then to yellow-brown. A finger contusion may be treated with a splint or skip tape (taping the injured finger to the onenext to it for support). Minor contusions likely will need no other treatment. Home care Elevate the hand to reduce pain and swelling. As much as possible, sit or lie down with the hand raised about the level of your heart. This is especially important during the first 48 hours. Ice the finger to help reduce pain and swelling. Wrap a cold source (ice pack or ice cubes in a plastic bag) in a thin towel. Apply to the bruised finger for 20 minutes every 1 to 2 hours the first day. Continue this 3 to 4 times a day until the pain and swelling goes away. If skip tape was applied and it becomes wet or dirty, change it. You may replace it with paper, plastic, or cloth tape. Before taping, put a thin strip of cotton or gauze between the fingers to absorb sweat. This will help prevent any breakdown of skin or fungal infections. Unless another medicine was prescribed, you can take acetaminophen, ibuprofen, or naproxen to control pain. (If you have chronic liver or kidney disease or ever had a stomach ulcer or gastrointestinal bleeding, talk with your doctor before using these medicines.) Follow up Follow up with your healthcare provider, or as advised. Call if you are not improving within 1 to 2weeks. When to seek medical advice Call your healthcare provider right away if you have any of the following: Increased pain or swelling Hand or arm becomes cold, blue, numb or tingly Signs of infection: Warmth, drainage, or increased redness or pain around the bruise Inability to move the injured finger or hand Frequent bruising for unknown reasons Your fingernail becomes raised and it appears that there is blood accumulating under the nail. Thismay need to be drained. 2250-5129 [employer] [address] [place] [address]. All rights reserved. This information is not intended as a substitute for professional medical care. Always follow yourhealthcare professional's instructions. Follow Up Care 08/17/2024 14:07:30 With:APRIL EMANUEL MD Address: [address] [place] [address] [place] [address] [phone] When:2-4 days With:NATALY THORPE DO Address: [address] [facility] [place] [address]- [phone] When:2-4 days [facility] 02-22-2025 Emergency department Discharge summary Discharge Instructions Thank you for allowing [facility] to assist you with your healthcare needs. The following is importantdischarge information regarding your hospital visit. Diagnosis from Today's Visit Finger pain, right What to Do Next Instructions from Your Care Team No qualifying data available. Post Acute Orders No qualifying data available. You Need to Schedule the Following Appointments Follow Up with APRIL EMANUEL MD When:Within 2-4 days Where:[address] [place], [place] [address] [place] [address] [phone] Follow Up with NATALY THORPE DO When:Within 2-4 days Where:[address] [facility] [place] [phone] Allergies Peaches Itching coconut Medications Please ask your primary doctor or pharmacist before taking any other medication not listed, including over the counter drugs, herbal medications, vitamins and or supplements as they may interact withyour home medications. What How Much When Instructions Last Dose Unchanged fexofenadine (Erica 24 Hour Allergy oral tablet) 1 tab(s) by mouth Every day as needed for for allergy symptoms Please take this list to your next doctor s visit. Bring all medications you take, including over the counter medications, herbals and other supplements with you to your doctor s visit. Patients and families are reminded to discard old lists and to update any records with all medication providers or retail pharmacies. Education Materials Finger Sprain A sprain is a stretching or tearing of the ligaments that hold a joint together. There are no broken bones. Sprains take 3 to 6 weeks or more to heal. A sprained finger may be treated with a splint or skip tape. This is when you tape the injured finger to the one next to it for support. Minor sprains may require no additional support. Home care Keep your hand elevated to reduce pain and swelling. This is very important during the first 48 hours. Apply an ice pack over the injured area for 15 to 20 minutes every 3 to 6 hours. You should do thisfor the first 24 to 48 hours. You can make an ice pack by filling a plastic bag that seals at the top with ice cubes and then wrapping it with a thin towel. Continue the use of ice packs for relief of pain and swelling as needed. As the ice melts, be careful to avoid getting any wrap or splint wet.After 48 hours, apply heat (warm shower or warm bath) for 15 to 20 minutes several times a day, or alternate ice and heat. If skip tape was applied and it becomes wet or dirty, change it. You may replace it with paper, plastic or cloth tape. Cloth tape and paper tapes must be kept dry. Apply gauze or cotton padding between the fingers, especially at the webbed space. This will help prevent the skin from getting moist and breaking down. Keep the skip tape in place for at least 4 weeks, or as instructed by your healthcare provider. If a splint was applied, wear it for the time advised. You may use xefl-zri-juuohnn pain medicine to control pain, unless another pain medicine was prescribed. If you have chronic liver or kidney disease or ever had a stomach ulcer or gastrointestinal bleeding, talk with your healthcare provider before using these medicines. Follow-up care Follow up with your healthcare provider, or as directed. Finger joints will become stiff if immobile for too long. If a splint was applied, ask your healthcare provider when it is safe to begin sgjyv-hn-xggfiz exercises. Sometimes fractures don t show up on the first X-ray. Bruises and sprains can sometimes hurt as much as a fracture. These injuries can take time to heal completely. If your symptoms don t improve or they get worse, talk with your healthcare provider. You may need a repeat X-ray. If X-rays were taken, you will be told of any new findings that may affect your care. When to seek medical advice Call your healthcare provider right away if any of these occur: Pain or swelling increases Fingers or hand becomes cold, blue, numb, or tingly [id number] [employer] [address] [place], [place] [address]. All rights reserved. This information is not intended as a substitute for professional medical care. Always follow yourhealthcare professional's instructions. Finger Contusion You have a contusion. This is also called a bruise. There is swelling and some bleeding under the skin, but no broken bones. This injury generally takes a few days to a few weeks to heal. During thattime, the bruise will typically change in color from reddish, to purple-blue, to greenish-yellow, then to yellow-brown. A finger contusion may be treated with a splint or skip tape (taping the injured finger to the onenext to it for support). Minor contusions likely will need no other treatment. Home care Elevate the hand to reduce pain and swelling. As much as possible, sit or lie down with the hand raised about the level of your heart. This is especially important during the first 48 hours. Ice the finger to help reduce pain and swelling. Wrap a cold source (ice pack or ice cubes in a plastic bag) in a thin towel. Apply to the bruised finger for 20 minutes every 1 to 2 hours the first day. Continue this 3 to 4 times a day until the pain and swelling goes away. If skip tape was applied and it becomes wet or dirty, change it. You may replace it with paper, plastic, or cloth tape. Before taping, put a thin strip of cotton or gauze between the fingers to absorb sweat. This will help prevent any breakdown of skin or fungal infections. Unless another medicine was prescribed, you can take acetaminophen, ibuprofen, or naproxen to control pain. (If you have chronic liver or kidney disease or ever had a stomach ulcer or gastrointestinal bleeding, talk with your doctor before using these medicines.) Follow up Follow up with your healthcare provider, or as advised. Call if you are not improving within 1 to 2weeks. When to seek medical advice Call your healthcare provider right away if you have any of the following: Increased pain or swelling Hand or arm becomes cold, blue, numb or tingly Signs of infection: Warmth, drainage, or increased redness or pain around the bruise Inability to move the injured finger or hand Frequent bruising for unknown reasons Your fingernail becomes raised and it appears that there is blood accumulating under the nail. Thismay need to be drained. 5749-6376 [employer] [address] [place] [address]. All rights reserved. This information is not intended as a substitute for professional medical care. Always follow yourhealthcare professional's instructions. Additional Information VACCINATE! IT SAVES LIVES! Members of the community who have not yet received the COVID-19 vaccine and would like to receive it can visit one of [facility] vaccine clinics. There are many vaccine clinic locations within the [facility]. For locations and available times, please visit www.[email or web address].[place].gov/. It is important to note that some COVID mobile vaccine clinics are held outdoors and may be canceled in rainy or stormy conditions. To learn more about pediatric vaccinations (ages 5-11), we invite you to visit the [facility] webpage. https://www.[facility].org/pages/4272-Hkkwq-Exjuadqxsnj-Deawhvktkx-Vekkc-Lds stions.htmlTo learn more about the COVID-19 vaccine, we invite you to visit the CDC website for a list of frequently asked questions. https://www.cdc.gov/coronavirus/2019-ncov/vaccines/faq.html [facility] Patient Portal Access Instructions: Stay connected with your healthcare team and access your personal medical information anytime with the [facility] Patient Portal. If you would like a full copy of your medical records please contact the [facility] Medical Records Department Monday through Monday between 8a.m. and 4:30p.m. Please follow the directions below to access the portal: 1.Access the email account you provided upon registration to the [facility].2.Look for an invitation email from [facility].3.Open the email and access the invitation link: Accept Invitation to [facility].Fill in the required mendoza to create your account. Sign into [email or web address] with your username and password that you created in the above steps to stay up to date. You can then view a summary of results, a summary of your visits, and the ability to download your summaries to your computer or send the information securely to a physician. Remember that your healthcare information is confidential, so carefully consider who you will allow to register on the [facility] Patient Portal for access to your information. You can also access the [facility] Patient Portal on the [employer] armand. Simply click on Health Records under [employer] and then click on the [employer] logo. HOW TO SAFELY DISPOSE OF PRESCRIPTION MEDICATIONS Please use one of the following methods to safely dispose of your unused medications. 1.Use a drug disposal kit: the drug disposal pouch allows you to safely discard your old and unuseddrugs. Ask your nurse to give you one when you are discharged.2.Visit a local take-back location: Many local pharmacies and police departments have programs that collect old and unwanted prescriptiondrugs. Call your local pharmacy or go to http://bit.ly/1U5Zl3w to find one close to you.3.Make use of household items: Use cat litter or old coffee grounds to dispose medications if other options arenot available. Mix your drugs with these household products, seal them in an airtight container andthrow it into the garbage. Call [facility]: [phone] to be sure your drugs can be disposed of in this way. Some medicines may require a different approach.4.Never flush your medications down the toilet. IF YOU HAVE BEEN PRESCRIBED AN OPIOIDS FOR PAIN If you have been prescribed an opioid (such as hydrocodone, oxycodone or morphine), it is critical to understand the possible side effects and risks of opioid pain medications. Even when taken as directed, opioids can have several side effects including: Tolerance, meaning you might need to take more of a medication for the same pain relief. Nausea, vomiting and/or constipation. Sleepiness, dizziness, dry mouth, confusion, depression or itching. Physical dependence, meaning you have withdrawal symptoms when a medication is stopped ? this can develop within a few days. KNOW YOUR RESPONSIBILITIES It is important to know exactly how much and how often to take the opioid pain medications you are prescribed. Never take opioids in higher amounts or more often than prescribed. Do not combine opioids with alcohol or other drugs that cause drowsiness, such as benzodiazepines, also known as benzos,including diazepam and alprazolam, muscle relaxants or sleep aids. Never sell or share prescriptionopioids. This is illegal. Store opioids in a secure place and out of reach of others (including children, family, friends and visitors). The last page(s) of this document has been signed and retained as a CHART COPY Signatures Patient Education Materials Finger Sprain Finger Contusion Medication Leaflets My discharge plan and instructions have been reviewed and explained to me and I,KATHRYN GOMES understand my current condition and have read and understand these discharge instructions. I have received a written copy of the plan/instructions. If I have questions, I am aware that I should contactmy doctor. Patient/Drying Equipment Operator Signature: Date/Time: Relationship to Patient: Witness Name/Signature: Date/Time: [facility]02-22-2025 Note* Exam Date Time Procedure Performing Provider Status 08/17/24 3:47 PM XR Finger 5th Digit 3 Views Right ROB BUCKNER MD; Auth (Verified) [id number] ORIGINAL EXAMINATION: THREE XRAY VIEWS OF THE RIGHT FINGERS08/17/2024 3:47 pm FINGER RIGHT 3VW COMPARISON: None HISTORY: ORDERING SYSTEM PROVIDED HISTORY: Reason for Exam: injury FINDINGS: The examination is compromised due to contracture of the 5th digit. No definite fracture is identified. IMPRESSION: Compromised by an apparent contracture of the 5th digit. No definite fracture Interpreted by: Rob Buckner MD Preliminary Report By: Rob Buckner MD Electronically signed By Rob Buckner MD Dictated Date: 08/17/2024 3:51:40 PM Prelim Date: 08/17/2024 3:53:00 PM Sign Date: 08/17/2024 3:53:00 PM Ordering Provider: JERICHO GUTIÉRREZ [facility]02-07-2025 [id number]-[id number] (AGENT OF COVID-19) RNA: Not detected INFLUENZA A RNA: Not detected INFLUENZA B RNA: Not detected RESPIRATORY SYNCYTIAL VIRUS (RSV) RNA: Not detectedThe Bellevue HospitalComment on above:Performed By: #### [id number] #### [facility] CLIA [id number] [address] [place] [address] OF [id number] History of Present illness Narrative* Cornelius Plummer APRN.MANPOWER DEVELOPMENT SPECIALIST MANAGER - 08/02/2024 1:29 PM EST This note was created using Axis Systemsriter. Subjective Kathryn Gomes is a 19 year old female. HPI by patient and SO: Kathryn is a 19 year old presenting to the office with the complaint of URI Started approximately Monday Associated symptoms include congestion, runny nose, laryngitis and fever Denies any other concerns Covid Immunization Dates Overdue - Covid-19 Vaccine ( season) Never done No completion, postpone, frequency change, or communication history exists for this topic. Sick contacts: no Smoking history/second hand smoke: no OTC tylenol and IBU No antibiotic use in the last 60 days. ALLERGIES Coconut Hives Candler (Prunus Persi* Itching Family History Reviewed Including Cardiac Diseases, Psychiatric Diseases, & Substance Abuse Problem: Cervical Cancer Relation: Mother Age of Onset: (Not Specified) Problem: Broken Bones Relation: Father Age of Onset: (Not Specified) Problem: Cancer Relation: Paternal Grandmother Age of Onset: (Not Specified) Problem: Diabetes Relation: Paternal Grandmother Age of Onset: (Not Specified) Problem: Prostate Cancer Relation: Paternal Grandfather Age of Onset: (Not Specified) Social History Tobacco Use Smoking status: Never Passive exposure: Yes Smokeless tobacco: Never Review of Systems Constitutional: Negative for chills and fever. HENT: Positive for congestion, postnasal drip and rhinorrhea. Negative for ear pain and sore throat. Respiratory: Negative for cough. Cardiovascular: Negative for chest pain. Allergic/Immunologic: Negative for immunocompromised state. Hematological: Negative for adenopathy. Objective BP 137/94 Pulse 103 Temp 37.1 C (98.8 F) Resp 16 SpO2 97% Physical Exam Vitals and nursing note reviewed. HENT: Right Ear: Tympanic membrane and ear canal normal. Left Ear: Tympanic membrane and ear canal normal. Nose: Congestion and rhinorrhea present. Mouth/Throat: Pharynx: Uvula midline. Posterior oropharyngeal erythema present. No oropharyngeal exudate. Cardiovascular: Rate and Rhythm: Normal rate and regular rhythm. Heart sounds: Normal heart sounds. Pulmonary: Effort: Pulmonary effort is normal. No respiratory distress. Breath sounds: Normal breath sounds. No stridor. No wheezing, rhonchi or rales. Chest: Chest wall: No tenderness. Lymphadenopathy: Cervical: No cervical adenopathy. Skin: General: Skin is warm and dry. Neurological: Mental Status: She is alert and oriented to person, place, and time. Assessment and Plan ASSESSMENT/PLAN: 1. Viral URI with cough - ICD9: 465.9, ICD10: J06.9 (primary diagnosis) - Discussed viral etiology and rationale for treatment. - Symptomatic treatment with prn analgesia - Supportive care with fluids and rest - COVID & INFLUENZA A/B & RSV PCR, ROUTINE - [id number] 2 MG-30 MG-10 MG/5 ML ORAL SYRUP - OXYMETAZOLINE 0.05 % NASAL SPRAY 2. Fever, unspecified fever cause - ICD9: 780.60, ICD10: R50.9 - COVID & INFLUENZA A/B & RSV PCR, ROUTINE - [id number] 2 MG-30 MG-10 MG/5 ML ORAL SYRUP - OXYMETAZOLINE 0.05 % NASAL SPRAY Cornelius Plummer APRN.CNP Medical Decision Making: Problems: Moderate: New problem with uncertain prognosis Data: Unique test result(s) reviewed: 2 Unique test(s) ordered: 3+ Risk: Moderate: Drug management Medical Decision Making Level: 4 - Moderate [facility] Inst[facility]* Patient Instructions* Cornelius Plummer APRN.CNP - 08/02/2024 1:29 PM EST UPPER RESPIRATORY INFECTIONS Most cases are caused by viruses and most cases are mild, temporary, and harmless. Symptoms can last 2 to 3 weeks and can include: nasal congestion, sore throat, coughing, muscles aches, headaches, nausea, diarrhea, fatigue and fever. Rhinovirus, RSV, Covid, Influenza A and B, Parainfluenza are just a few COMMON respiratory viruses that cause sinus symptoms and cough. Antibiotics do NOT treat viruses. Taking 1 round of antibiotics can destroy your gut normal radha (good bacteria) for up to 6 months. This can affect your weight, skin, digestion, mental health and immune system. 1. Drink plenty of fluids. 2. Get lots of rest. 3. Avoid dehydrants such as caffeine and alcohol. 4. Nasal saline is an effective decongestant and be used frequently throughout the day. 5. To loosen phlegm and help coughing, drink plenty of fluids and using a humidifier. 6. For sore throats, it is ok to use cough drops, throat sprays, or gargling warm salt water. 7. Always cover your mouth when you cough or sneeze, and wash your hands frequently. Avoid crowded areas like shopping centers, movies while you are sick so you don't pickling tank operator a different virus, or infect others. 8. Avoid exposure to cigarettes or fumes. 9. Avoid irritants such as potpourri, dust, perfumes, scented candles and scented sprays 10. Air conditioning is an effective allergen and irritant avoidance strategy in the spring, summerand fall. 11. Honey is an effective cough suppressant. Try one tsp 3-4 times per day. 12. Mucinex every 12 hours with a full 10-12 ounces of water 13. Afrin for 3-4 days for congestion and post nasal drainage is both safe and effective EXPRESS CARE PATIENT INFO INFLUENZA INTRODUCTION Influenza (commonly called the flu) is a highly contagious illness that can occur in children or adults of any age. It occurs more often in the winter months because people spend more time in close contact with one another. The flu is spread easily from hteyvm-cn-fjvaii by coughing, sneezing, or touching surfaces. Every year, complications of the flu require more than 200,000 people in the [place] to be hospitalized. Serious illness is more likely in the very young, older adults, women, and people who have certain health problems such as asthma or other forms of lung disease. There have been several widespread flu outbreaks (called pandemics), which led to the deaths of many people worldwide. These outbreaks occurred when new strains of influenza viruses formed (often from pigs or birds) and humans became infected because they had no immunity to these viruses. FLU SYMPTOMS Symptoms of seasonal flu can vary from person to person, but usually include: Fever (temperature higher than 100 F or 37.8 C) Headache and muscle aches Fatigue Cough and sore throat may also be present People with the flu usually have a fever for two to five days. This is different than fever caused by other upper respiratory viruses, which usually resolve after 24 to 48 hours. Some people have cold-like symptoms (runny nose, sore throat) during the flu while others have fever and muscle aches. Flu symptoms usually improve over two to five days, although the illness may last for a week or more. Weakness and fatigue may persist for several weeks Flu complications -- Complications of influenza occur in some people; pneumonia is the most common complication. Pneumonia is a serious infection of the lungs, and is more likely to occur in people over the age of 65, people who live in adjunct faculty for medical terminology care facilities (nursing homes), and those with other illnesses such as diabetes or conditions affecting the heart or lungs. FLU DIAGNOSIS Influenza is usually diagnosed based on symptoms (fever, cough and muscle aches). Lab testing for influenza is performed in certain cases, such as during a new influenza outbreak in a community. FLU TREATMENT When to seek help -- Most people with the flu recover within one to two weeks without treatment. However, serious complications of the flu can occur. Call your doctor or nurse immediately if: You feel short of breath or have trouble breathing You have pain or pressure in your chest or stomach You have signs of being dehydrated, such as dizziness when standing or not passing urine You feel confused You cannot stop vomiting or you cannot drink enough fluids There are several groups of people who are at increased risk for flu complications. These include women, young children (<5 years of age, and especially <2 years of age), people >=65 years of age, and people with certain diseases such as chronic lung disease (such as asthma), heart disease, diabetes, immunosuppressing conditions (such as HIV infection or transplantation), and some other diseases. If you or your child has flu symptoms and is at increased risk of flu complications, you should call your healthcare provider. Treat symptoms -- Treating the symptoms of influenza can help you to feel better, but will not makethe flu go away faster. Rest until the flu is fully resolved, especially if the illness has been severe Fluids -- Drink enough fluids so that you do not become dehydrated. One way to client retention specialist if you are drinking enough is to look at the color of your urine. Normally, urine should be light yellow to nearlycolorless. If you are drinking enough, you should pass urine every three to five hours. Acetaminophen (such as Tylenol and other brands) can relieve fever, headache, and muscle aches. Aspirin, and medicines that include aspirin (eg, bismuth subsalicylate; PeptoBismol), are not recommended for children under 18 because aspirin can lead to a serious disease called Ellis syndrome. Cough medicines are not usually helpful; cough usually resolves without treatment. We do not recommend cough or cold medicine for children under age six years. Antiviral treatment -- Antiviral medicines can be used to treat or prevent influenza. When used as a treatment, the medicine does not eliminate flu symptoms, although it can reduce the severity and duration of symptoms by about one day. Not every person with influenza needs an antiviral medicine; the decision is based upon your risk of developing complications of influenza. Antiviral treatment is most effective for seasonal influenza when it is taken within the first 48 hours of flu symptoms. Side effects -- Zanamivir and oseltamivir can cause mild side effects, including nausea and vomiting; zanamivir, which is inhaled, can cause difficulty breathing in some cases. Most people are able to continue the medicine despite the side effects. Antibiotics -- Antibiotics are NOT useful for treating viral illnesses such as influenza. Antibiotics should only used if there is a bacterial complication of the flu such as bacterial pneumonia, earinfection, or sinusitis. Antibiotics can cause side effects and lead to development of antibiotic resistance. [facility] NoteHNO ID: [id number] Author: CORNELIUS PLUMMER APRN.KAMI Service: ? Author Type: Nurse Practitioner Type: Progress Notes Filed: 08/02/2024 13:34 Note Text: This note was created using Quviumter. Subjective Kathryn Gomes is a 19 year old female. HPI by patient and SO: Kathryn is a 19 year old presenting to the office with the complaint of URI Started approximately Monday Associated symptoms include congestion, runny nose, laryngitis and fever Denies any other concerns Covid Immunization Dates Overdue - Covid-19 Vaccine ( season) Never done No completion, postpone, frequency change, or communication history exists for this topic. Sick contacts: no Smoking history/second hand smoke: no OTC tylenol and IBU No antibiotic use in the last 60 days. ALLERGIES Coconut Hives Candler (Prunus Persi* Itching Family History Reviewed Including Cardiac Diseases, Psychiatric Diseases, AND Substance Abuse Problem: Cervical Cancer Relation: Mother Age of Onset: (Not Specified) Problem: Broken Bones Relation: Father Age of Onset: (Not Specified) Problem: Cancer Relation: Paternal Grandmother Age of Onset: (Not Specified) Problem: Diabetes Relation: Paternal Grandmother Age of Onset: (Not Specified) Problem: Prostate Cancer Relation: Paternal Grandfather Age of Onset: (Not Specified) Social History Tobacco Use Smoking status: Never Passive exposure: Yes Smokeless tobacco: Never Review of Systems Constitutional: Negative for chills and fever. HENT: Positive for congestion, postnasal drip and rhinorrhea. Negative for ear pain and sore throat. Respiratory: Negative for cough. Cardiovascular: Negative for chest pain. Allergic/Immunologic: Negative for immunocompromised state. Hematological: Negative for adenopathy. Objective BP 137/94 Pulse 103 Temp 37.1 ?C (98.8 ?F) Resp 16 SpO2 97% Physical Exam Vitals and nursing note reviewed. HENT: Right Ear: Tympanic membrane and ear canal normal. Left Ear: Tympanic membrane and ear canal normal. Nose: Congestion and rhinorrhea present. Mouth/Throat: Pharynx: Uvula midline. Posterior oropharyngeal erythema present. No oropharyngeal exudate. Cardiovascular: Rate and Rhythm: Normal rate and regular rhythm. Heart sounds: Normal heart sounds. Pulmonary: Effort: Pulmonary effort is normal. No respiratory distress. Breath sounds: Normal breath sounds. No stridor. No wheezing, rhonchi or rales. Chest: Chest wall: No tenderness. Lymphadenopathy: Cervical: No cervical adenopathy. Skin: General: Skin is warm and dry. Neurological: Mental Status: She is alert and oriented to person, place, and time. Assessment and Plan ASSESSMENT/PLAN: 1. Viral URI with cough - ICD9: 465.9, ICD10: J06.9 (primary diagnosis) - Discussed viral etiology and rationale for treatment. - Symptomatic treatment with prn analgesia - Supportive care with fluids and rest - COVID AND INFLUENZA A/B AND RSV PCR, ROUTINE - [id number] 2 MG-30 MG-10 MG/5 ML ORAL SYRUP - OXYMETAZOLINE 0.05 % NASAL SPRAY 2. Fever, unspecified fever cause - ICD9: 780.60, ICD10: R50.9 - COVID AND INFLUENZA A/B AND RSV PCR, ROUTINE - [id number] 2 MG-30 MG-10 MG/5 ML ORAL SYRUP - OXYMETAZOLINE 0.05 % NASAL SPRAY Cornelius Plummer APRN.CNP Medical Decision Making: Problems: Moderate: New problem with uncertain prognosis Data: Unique test result(s) reviewed: 2 Unique test(s) ordered: 3+ Risk: Moderate: Drug management Medical Decision Making Level: 4 - [facility]* Patient Instructions* Herrera Camacho PA-C - 07/28/2024 9:54 AM EST Viral Syndrome Your doctor wanted you to have the following information about viral syndrome... You are getting this information because you have symptoms related to a viral syndrome. Your body is actively fighting a virus. There are many viruses and they can cause different symptoms depending on what body part they attack. Some symptoms of a viral syndrome are: Fever (temperature higher than 100.4 F or 38 C). Headaches. Fatigue (feeling tired) and body soreness. A clogged-up or runny nose. Sore throat. Cough. Rash. Nausea (feeling sick to the stomach) and vomiting (throwing up). Diarrhea (watery poop). Stomach cramps. Basic care for a viral syndrome is to rest and drink lots of fluids. You will feel better over time. Recommended non-prescription medications by symptom Cough, Non-productive (not coughing up phlegm) - Cough suppressant containing dextromethorphan (Robitussin DM or Delsym ) Cough, Productive (coughing up phlegm) - Cough suppressant (see above) - Expectorant: Mucinex tablets or plain guaifenesin syrup, also known as Robitussin Fever/Headache/Muscle Aches - Acetaminophen (Tylenol ) - Non-Steroidal Anti-Inflammatory Drugs (NSAIDs) such as ibuprofen (Advil ) or naproxen (Aleve ) Nasal Stuffiness Saline nasal spray or a Neti Pot. - Nasal steroid sprays: Flonase or Nasacort - Decongestants: Topical spray: Oxymetazoline (Afrin Nasal [place]); limit to 3-4 days maximum Oral medication: Pseudoephedrine (Sudafed ) - MUST BE PURCHASED FROM PHARMACIST Gautam and/or Itchy Nose/Sneezing - Nasal steroid sprays: Flonase or Nasacort - Antihistamine: Benadryl , which will likely cause drowsiness, or Loratadine (Alavert ), which is not as likely to cause drowsiness Sore Throat Pain Relief - Suck on throat lozenges, hard candy or popsicles - Gargle with warm salt water (1/4 tsp. salt per 8 oz. of water); and eat soft, bland foods. - Take acetaminophen (Tylenol ) or ibuprofen (Advil ). - Try throat sprays (Chloraseptic ). Unfortunately, there is still no cure for most viruses. Antibiotics don't work for viral illnesses.Antibiotics may cause side effects like rash or diarrhea (watery poop). Taking antibiotics when they are not needed might stop them from working if you get a bacterial infection later. Some serious infections can feel like a viral syndrome in the first few days. So it is important towatch your symptoms. See your doctor if you feel worse. See your doctor or go to the nearest Emergency Department if you: Have a fever (temperature higher than 100.4 F or 38 C) that won't go away. Have painful headache or stiff neck. Have constant vomiting or diarrhea (watery poop). Feel lightheaded, faint or might pass out. Have trouble breathing or shortness of breath. Feel confused or cannot think clearly. Are weak and cannot walk. Contact your doctor if you have any questions. If you think your symptoms are worse, go to the Emergency Department to be seen by a doctor. [facility]25 NoteHNO ID: [id number] Author: HERRERA CAMACHO PA-C Service: ? Author Type: Physician Abrasive Grinder Type: Progress Notes Filed: 07/28/2024 10:03 Note Text: Joann Gomes is a 19 year old female with no significant past medical history who presents to [facility] care today for evaluation of nasal congestion, sore throat, and fever that began yesterday. Patient states that she has been exposed to norovirus and RSV. No known exposure to COVID-19 or influenza. Review of Systems Constitutional: Positive for fever. Negative for chills and diaphoresis. HENT: Positive for congestion and sore throat. Negative for ear pain. Eyes: Negative for pain and redness. Respiratory: Negative for cough and shortness of breath. Skin: Negative for rash and wound. Neurological: Negative for weakness and headaches. All other systems reviewed and are negative. Objective There were no vitals taken for this visit. Physical Exam Vitals reviewed. Constitutional: General: She is not in acute distress. Appearance: Normal appearance. She is normal weight. She is not ill-appearing or toxic-appearing. Comments: The patient appears to be non-toxic, in no acute distress, and resting comfortably on the table. HENT: Head: Normocephalic and atraumatic. Right Ear: Tympanic membrane, ear canal and external ear normal. Left Ear: Tympanic membrane, ear canal and external ear normal. Nose: Congestion present. Mouth/Throat: Mouth: Mucous membranes are moist. Pharynx: Oropharynx is clear. No oropharyngeal exudate or posterior oropharyngeal erythema. Eyes: Extraocular Movements: Extraocular movements intact. Cardiovascular: Rate and Rhythm: Normal rate and regular rhythm. Heart sounds: Normal heart sounds. No murmur heard. No friction rub. No gallop. Pulmonary: Effort: Pulmonary effort is normal. No respiratory distress. Breath sounds: Normal breath sounds. No wheezing. Musculoskeletal: General: Normal range of motion. Cervical back: Normal range of motion. Skin: General: Skin is warm and dry. Findings: No erythema or rash. Neurological: General: No focal deficit present. Mental Status: She is alert and oriented to person, place, and time. Mental status is at baseline. Psychiatric: Mood and Affect: Mood normal. Behavior: Behavior normal. Thought Content: Thought content normal. Assessment and Plan Rapid strep negative. Results discussed with patient. Suspect patient's symptoms are due to viral infection. Patient tested for COVID-19, influenza, and RSV. Patient advised to take ibuprofen and Tylenol as needed and follow-up with her primary care provider for any new or worsening symptoms. ASSESSMENT/PLAN: 1. Viral URI - ICD9: 465.9, ICD10: J06.9 (primary diagnosis) - Discussed viral etiology and rationale for treatment. - Symptomatic treatment with prn analgesia - Supportive care with fluids and rest 2. Sore throat - ICD9: 462, ICD10: J02.9 - Rapid Strep negative in the office today - STREP A MOLECULAR (POC) - COVID AND INFLUENZA A/B AND RSV PCR, ROUTINE 3. Nasal congestion - ICD9: 478.19, ICD10: R09.81 - COVID AND INFLUENZA A/B AND RSV PCR, ROUTINE 4. Fever, unspecified fever cause - ICD9: 780.60, ICD10: R50.9 - COVID AND INFLUENZA A/B AND RSV PCR, ROUTINE 5. RSV exposure - ICD9: V01.79, ICD10: Z20.828 - COVID AND INFLUENZA A/B AND RSV PCR, ROUTINE Medical Decision Making: Problems: Low: Acute, uncomplicated illness or injury Risk: Minimal: Minimal risk from testing/treatment Moderate: Drug management Medical Decision Making Level: 3 - Low I spent a total of 20 minutes on the date of the service which included preparing to see the patient, [id number] patient care, completing clinical documentation, performing a medically appropriate examination, counseling and educating the patient/family/caregiver, and ordering medications, tests, or procedures. [facility] History of Present illness Narrative* Herrera Camacho PA-C - 07/28/2024 9:27 AM EST Joann Gomes is a 19 year old female with no significant past medical history who presents to [facility] care today for evaluation of nasal congestion, sore throat, and fever that began yesterday. Patient states that she has been exposed to norovirus and RSV. No known exposure to COVID-19 or influenza. Review of Systems Constitutional: Positive for fever. Negative for chills and diaphoresis. HENT: Positive for congestion and sore throat. Negative for ear pain. Eyes: Negative for pain and redness. Respiratory: Negative for cough and shortness of breath. Skin: Negative for rash and wound. Neurological: Negative for weakness and headaches. All other systems reviewed and are negative. Objective There were no vitals taken for this visit. Physical Exam Vitals reviewed. Constitutional: General: She is not in acute distress. Appearance: Normal appearance. She is normal weight. She is not ill-appearing or toxic-appearing. Comments: The patient appears to be non-toxic, in no acute distress, and resting comfortably on thetable. HENT: Head: Normocephalic and atraumatic. Right Ear: Tympanic membrane, ear canal and external ear normal. Left Ear: Tympanic membrane, ear canal and external ear normal. Nose: Congestion present. Mouth/Throat: Mouth: Mucous membranes are moist. Pharynx: Oropharynx is clear. No oropharyngeal exudate or posterior oropharyngeal erythema. Eyes: Extraocular Movements: Extraocular movements intact. Cardiovascular: Rate and Rhythm: Normal rate and regular rhythm. Heart sounds: Normal heart sounds. No murmur heard. No friction rub. No gallop. Pulmonary: Effort: Pulmonary effort is normal. No respiratory distress. Breath sounds: Normal breath sounds. No wheezing. Musculoskeletal: General: Normal range of motion. Cervical back: Normal range of motion. Skin: General: Skin is warm and dry. Findings: No erythema or rash. Neurological: General: No focal deficit present. Mental Status: She is alert and oriented to person, place, and time. Mental status is at baseline. Psychiatric: Mood and Affect: Mood normal. Behavior: Behavior normal. Thought Content: Thought content normal. Assessment and Plan Rapid strep negative. Results discussed with patient. Suspect patient's symptoms are due to viral infection. Patient tested for COVID-19, influenza, and RSV. Patient advised to take ibuprofen and Tylenol as needed and follow-up with her primary care provider for any new or worsening symptoms. ASSESSMENT/PLAN: 1. Viral URI - ICD9: 465.9, ICD10: J06.9 (primary diagnosis) - Discussed viral etiology and rationale for treatment. - Symptomatic treatment with prn analgesia - Supportive care with fluids and rest 2. Sore throat - ICD9: 462, ICD10: J02.9 - Rapid Strep negative in the office today - STREP A MOLECULAR (POC) - COVID & INFLUENZA A/B & RSV PCR, ROUTINE 3. Nasal congestion - ICD9: 478.19, ICD10: R09.81 - COVID & INFLUENZA A/B & RSV PCR, ROUTINE 4. Fever, unspecified fever cause - ICD9: 780.60, ICD10: R50.9 - COVID & INFLUENZA A/B & RSV PCR, ROUTINE 5. RSV exposure - ICD9: V01.79, ICD10: Z20.828 - COVID & INFLUENZA A/B & RSV PCR, ROUTINE Medical Decision Making: Problems: Low: Acute, uncomplicated illness or injury Risk: Minimal: Minimal risk from testing/treatment Moderate: Drug management Medical Decision Making Level: 3 - Low I spent a total of 20 minutes on the date of the service which included preparing to see the patient, [id number] patient care, completing clinical documentation, performing a medically appropriate examination, counseling and educating the patient/family/caregiver, and ordering medications, tests,or procedures. Herrera Camacho PA-C [facility]01-[facility]25 Instructions* Patient Instructions* Herrera Camacho PA-C - 07/12/2024 3:47 PM EST Wound [facility] care Your healthcare provider may prescribe medicines for pain. Or he or she may suggest an lngi-jku-bxzfxqj (OTC) pain reliever, such as ibuprofen. If you have chronic kidney disease, talk with your provider before taking any OTC medicines. Also talk with your provider if you've had a stomach ulcer or gastrointestinal bleeding. In certain cases, antibiotics may be prescribed to help prevent infection. If antibiotics are prescribed, take them exactly as directed for as long as directed. Don't stop taking your antibiotics until they are all gone, even if you feel better. General care Follow the healthcare provider s instructions on how to care for the wound. Wash your hands with soap and warm water before and after caring for the wound. This helps prevent infection. If a bandage was applied, change it once a day or as directed. If at any time the bandage becomes wet or dirty, replace it with a new one. Unless told otherwise, avoid soaking the wound in water. Take showers or sponge baths instead of tub baths. Don't scrub or pick at the wound. Don't go swimming. If you have a bandage and it gets wet, use a clean cloth to gently pat the wound dry. Then replace the bandage with a dry one. Don't scratch, rub, or pick at the area. Watch for the signs of infection listed below. Any wound can get infected, even if you are taking antibiotics. Seek care right away if you see any possible signs of infection. Care for specific closures Stitches. You may want to clean the wound daily after the first 2 to 3 days. To do this, remove thebandage and gently wash the area with soap and warm water. After cleaning, apply a thin layer of antibiotic ointment if recommended. Then apply a new bandage. Stitches es on the outside of the skin usually need to be removed by your healthcare provider. Surgical tape. Keep the area dry. If it gets wet, blot it dry with a towel. Surgical tape closures usually fall off within 7 to 10 days. If they have not fallen off after 10 days, you can remove themyourself. To remove the tape, use mineral oil or petroleum jelly on a cotton ball to gently rub theadhesive. Skin glue. You may shower or bathe as usual, but don't use soaps, lotions, or ointments on the wound area. Don't scrub the wound. After bathing, pat the wound dry with a soft towel. Don't apply liquids like peroxide, ointments, or creams to the wound while the strips or film is in place. Don't scratch, rub, or pick at the strips or film. Don't put tape directly over the strips or film. Skin adhesive film will fall off naturally in 5 to 10 days. If it does not peel off in 10 days, gently rub petroleum jelly or an ointment onto the film. Surveyor. Take showers or sponge baths. Don't take tub baths. Don't use lotions on the wound area. The area may be cleaned with soap and water 2 to 3 days after the wound was stapled. Don't scrub the wound. Pat it dry with a clean soft cloth or towel. You can use antibiotic ointment if your providertells you to. Johnny will need to be removed by your healthcare provider in 10 to 14 days. Follow-up care Follow up with your healthcare provider, or as directed. If you have stitches or johnny, return for their removal as directed. When to seek medical advice Call your healthcare provider right away if you have signs of infection: Fever of 100.4 F (38 C) or higher, or as directed by your healthcare provider Increasing pain in the wound Increasing redness or swelling Pus or bad-smelling drainage from the wound Also call your provider right away if any of these occur: Wound bleeds more than a small amount or won t stop bleeding Wound edges come apart Numbness or weakness in the wound area that doesn t go away documented in this [facility]01-[facility]25 NoteHNO ID: [id number] Author: HERRERA CAMACHO PA-C Service: ? Author Type: Physician Abrasive Grinder Type: Progress Notes Filed: 07/12/2024 16:05 Note Text: Subjective Kathryn Gomes is a 18 year old female with no significant past medical history who presents to [facility] today for evaluation of a puncture wound to her right index finger which happened about 2 hours prior to arrival to [facility]. 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 She states that the finger feels swollen and like it is burning. She is unsure of the date of her last tetanus shot. Review of Systems Skin: Positive for wound (right index finger puncture wound). Negative for color change. All other systems reviewed and are negative. Objective There were no vitals taken for this visit. Physical Exam Vitals reviewed. Constitutional: General: She is not in acute distress. Appearance: Normal appearance. She is normal weight. She is not ill-appearing or toxic-appearing. Comments: The patient appears to be non-toxic, in no acute distress, and resting comfortably on the table. HENT: Head: Normocephalic and atraumatic. Eyes: Extraocular Movements: Extraocular movements intact. Musculoskeletal: General: Normal range of motion. Cervical back: Normal range of motion. Skin: General: Skin is warm and dry. Findings: Wound (very very small right index finger puncture wound, no active bleeding) present. No erythema or rash. Neurological: General: No focal deficit present. Mental Status: She is alert and oriented to person, place, and time. Mental status is at baseline. Psychiatric: Mood and Affect: Mood normal. Behavior: Behavior normal. Thought Content: Thought content normal. Assessment and Plan Examination of the skin reveals a very very small right index finger puncture wound with no active bleeding. No tenderness to palpation. Patient is neurovascularly intact. Tetanus updated. Bacitracin applied. Patient counseled regarding suspected diagnosis and advised to follow-up with primary care as needed for any new or worsening symptoms. ASSESSMENT/PLAN: 1. Puncture wound of right index finger - ICD9: 883.0, ICD10: S61.230A (primary diagnosis) - TDAP VACCINE, AGE 7+ YR (ADACEL, BOOSTRIX) - BACITRACIN 500 UNIT/GRAM TOPICAL PACKET 2. Need for tetanus booster - ICD9: V03.7, ICD10: Z23 - TDAP VACCINE, AGE 7+ YR (ADACEL, BOOSTRIX) Medical Decision Making: Problems: Low: Acute, uncomplicated illness or injury Risk: Minimal: Minimal risk from testing/treatment Moderate: Drug management Medical Decision Making Level: 3 - Low I spent a total of 20 minutes on the date of the service which included preparing to see the patient, [id number] patient care, completing clinical documentation, performing a medically appropriate examination, counseling and educating the patient/family/caregiver, and ordering medications, tests, or procedures. [facility] History of Present illness Narrative* Herrera Camacho PA-C - 07/12/2024 3:25 PM EST Joann Gomes is a 18 year old female with no significant past medical history who presents to [facility] today for evaluation of a puncture wound to her right index finger which happened about 2 hours prior to arrival to [facility]. 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 She states that the finger feels swollen and like itis burning. She is unsure of the date of her last tetanus shot. Review of Systems Skin: Positive for wound (right index finger puncture wound). Negative for color change. All other systems reviewed and are negative. Objective There were no vitals taken for this visit. Physical Exam Vitals reviewed. Constitutional: General: She is not in acute distress. Appearance: Normal appearance. She is normal weight. She is not ill-appearing or toxic-appearing. Comments: The patient appears to be non-toxic, in no acute distress, and resting comfortably on thetable. HENT: Head: Normocephalic and atraumatic. Eyes: Extraocular Movements: Extraocular movements intact. Musculoskeletal: General: Normal range of motion. Cervical back: Normal range of motion. Skin: General: Skin is warm and dry. Findings: Wound (very very small right index finger puncture wound, no active bleeding) present. Noerythema or rash. Neurological: General: No focal deficit present. Mental Status: She is alert and oriented to person, place, and time. Mental status is at baseline. Psychiatric: Mood and Affect: Mood normal. Behavior: Behavior normal. Thought Content: Thought content normal. Assessment and Plan Examination of the skin reveals a very very small right index finger puncture wound with no active bleeding. No tenderness to palpation. Patient is neurovascularly intact. Tetanus updated. Bacitracinapplied. Patient counseled regarding suspected diagnosis and advised to follow-up with primary careas needed for any new or worsening symptoms. ASSESSMENT/PLAN: 1. Puncture wound of right index finger - ICD9: 883.0, ICD10: S61.230A (primary diagnosis) - TDAP VACCINE, AGE 7+ YR (ADACEL, BOOSTRIX) - BACITRACIN 500 UNIT/GRAM TOPICAL PACKET 2. Need for tetanus booster - ICD9: V03.7, ICD10: Z23 - TDAP VACCINE, AGE 7+ YR (ADACEL, BOOSTRIX) Medical Decision Making: Problems: Low: Acute, uncomplicated illness or injury Risk: Minimal: Minimal risk from testing/treatment Moderate: Drug management Medical Decision Making Level: 3 - Low I spent a total of 20 minutes on the date of the service which included preparing to see the patient, onbn-sy-mpti patient care, completing clinical documentation, performing a medically appropriate examination, counseling and educating the patient/family/caregiver, and ordering medications, tests,or procedures. Herrera Camacho PA-C [facility] + Plan note Future Scheduled Tests Radiology* XR Spine Cervical w/ Flex/Ext 6 + Views 06/18/24 * MRI Shoulder w/o Contrast Right 06/12/24 [facility] 09-01-2024 Hospital Discharge instructions Patient Education 02/25/2024 18:39:43 Plantar Fasciitis Plantar Fasciitis Plantar fasciitis is a painful swelling of the plantar fascia. The plantar fascia is a thick, fibrous layer of tissue that covers the bones on the bottom of your foot. It supports the foot bones in an arched position. Plantar fasciitis can happen gradually or suddenly. It usually affects one foot at a time. Heel pain can be sharp, like a knife sticking into the bottom of your foot. You may feel pain after exercising, long-distance jogging, stair climbing, long periods of standing, or after standing up. Risk factors include: non-active lifestyle, arthritis, diabetes, obesity or recent weight gain, flat foot, high arch. Wearing high heels, loose shoes, or shoes with poor arch support for long periodsof time adds to the risk. This problem is commonly found in runners and dancers. It also found in people who stand on hard surfaces for long periods of time. Foot pain from this condition is usually worse in the morning. But it often improves with walking. By the end of the day there may be a dull aching. Treatment requires short-term rest and controllingswelling. It may take up to 9 months before all symptoms go away. Rarely, a steroid injection into the foot, or surgery, may be needed. Home care If you are overweight, lose weight to help healing. Choose supportive shoes with good arch support and shock absorbency. Replace athletic shoes when they become worn out. Don t walk or run barefoot. Premade or custom-fitted shoe inserts may be helpful. Inserts made of silicone seem to be the most effective. Custom-made inserts can be provided by certified medical coding specialist, physical therapist, or orthopedist. Premade or custom-made night splints keep the heel stretched out while you sleep. They may prevent morning pain. Limit activities that stress the feet: jogging, prolonged standing or walking, contact sports, etc. First thing in the morning and before sports, stretch the bottom of your feet. Gently flex your ankle so the toes move toward your knee. Icing may help control heel pain. Apply an ice pack to the heel for 10 to 20 minutes as a preventive. Or ice your heel after a severe flare-up of symptoms. You may repeat this every 1 to 2 hours as needed. You may use jtgm-oyz-zpngzqy pain medicine to control pain, unless another medicine was prescribed.Anti-inflammatory pain medicines, such as ibuprofen or naproxen, may work better than acetaminophen. If you have chronic liver or kidney disease or ever had a stomach ulcer or gastrointestinal bleeding, talk with your healthcare provider before using these medicines. Follow-up care Follow up with your healthcare provider, or as advised. Call for an appointment if pain worsens or there is no relief after a few weeks of home treatment. Shoe inserts, a night splint, or a special boot may be required. If X-rays were taken, you will be told of any new findings that may affect your care. When to seek medical advice Call your healthcare provider right away if any of these occur: Foot swelling Redness or warmth with increasing pain [phone] [employer] [address] [place] [address]51. All rights reserved. This information is not intended as a substitute for professional medical care. Always follow yourhealthcare professional's instructions. Follow Up Care 02/25/2024 17:29:00 With:NATALY THORPE DO Address: [address] [place] [address] [phone] When:2-4 days [facility] 09-01-2024 Emergency department Discharge summary Discharge Instructions Thank you for allowing [facility] to assist you with your healthcare needs. The following is importantdischarge information regarding your hospital visit. Diagnosis from Today's Visit Plantar fasciitis, left What to Do Next Instructions from Your Care Team Continue use of ibuprofen and ice at home. Follow-up with your primary care physician. No qualifying data available. Post Acute Orders No qualifying data available. You Need to Schedule the Following Appointments Follow Up with NATALY THORPE DO When:Within 2-4 days Where:[address] [place] [phone] Allergies Peaches Itching coconut Medications Please ask your primary doctor or pharmacist before taking any other medication not listed, including over the counter drugs, herbal medications, vitamins and or supplements as they may interact withyour home medications. What How Much When Why Instructions Last Dose Unchanged diclofenac (diclofenac sodium 75 mg oral delayed release tablet) 1 tab(s) by mouth Two (2) times a day Contusion of left forearm Unchanged DME (Walking boot, concise) See instructions Sprain of left ankle Dispense 1 walking boot of appropriate size for left foot. Unchanged famotidine (Zantac 360) by mouth as needed. Unchanged fexofenadine (Erica 24 Hour Allergy oral tablet) 1 tab(s) by mouth Every day as needed for for allergy symptoms Please take this list to your next doctor s visit. Bring all medications you take, including over the counter medications, herbals and other supplements with you to your doctor s visit. Patients and families are reminded to discard old lists and to update any records with all medication providers or retail pharmacies. Education Materials Plantar Fasciitis Plantar fasciitis is a painful swelling of the plantar fascia. The plantar fascia is a thick, fibrous layer of tissue that covers the bones on the bottom of your foot. It supports the foot bones in an arched position. Plantar fasciitis can happen gradually or suddenly. It usually affects one foot at a time. Heel pain can be sharp, like a knife sticking into the bottom of your foot. You may feel pain after exercising, long-distance jogging, stair climbing, long periods of standing, or after standing up. Risk factors include: non-active lifestyle, arthritis, diabetes, obesity or recent weight gain, flat foot, high arch. Wearing high heels, loose shoes, or shoes with poor arch support for long periodsof time adds to the risk. This problem is commonly found in runners and dancers. It also found in people who stand on hard surfaces for long periods of time. Foot pain from this condition is usually worse in the morning. But it often improves with walking. By the end of the day there may be a dull aching. Treatment requires short-term rest and controllingswelling. It may take up to 9 months before all symptoms go away. Rarely, a steroid injection into the foot, or surgery, may be needed. Home care If you are overweight, lose weight to help healing. Choose supportive shoes with good arch support and shock absorbency. Replace athletic shoes when they become worn out. Don t walk or run barefoot. Premade or custom-fitted shoe inserts may be helpful. Inserts made of silicone seem to be the most effective. Custom-made inserts can be provided by certified medical coding specialist, physical therapist, or orthopedist. Premade or custom-made night splints keep the heel stretched out while you sleep. They may prevent morning pain. Limit activities that stress the feet: jogging, prolonged standing or walking, contact sports, etc. First thing in the morning and before sports, stretch the bottom of your feet. Gently flex your ankle so the toes move toward your knee. Icing may help control heel pain. Apply an ice pack to the heel for 10 to 20 minutes as a preventive. Or ice your heel after a severe flare-up of symptoms. You may repeat this every 1 to 2 hours as needed. You may use rfag-yiq-luunjfa pain medicine to control pain, unless another medicine was prescribed.Anti-inflammatory pain medicines, such as ibuprofen or naproxen, may work better than acetaminophen. If you have chronic liver or kidney disease or ever had a stomach ulcer or gastrointestinal bleeding, talk with your healthcare provider before using these medicines. Follow-up care Follow up with your healthcare provider, or as advised. Call for an appointment if pain worsens or there is no relief after a few weeks of home treatment. Shoe inserts, a night splint, or a special boot may be required. If X-rays were taken, you will be told of any new findings that may affect your care. When to seek medical advice Call your healthcare provider right away if any of these occur: Foot swelling Redness or warmth with increasing pain [phone] [employer] [address] [place] [address]. All rights reserved. This information is not intended as a substitute for professional medical care. Always follow yourhealthcare professional's instructions. Additional Information VACCINATE! IT SAVES LIVES! Members of the community who have not yet received the COVID-19 vaccine and would like to receive it can visit one of [facility] vaccine clinics. There are many vaccine clinic locations within the [facility]. For locations and available times, please visit www.[email or web address].[place].gov/. It is important to note that some COVID mobile vaccine clinics are held outdoors and may be canceled in rainy or stormy conditions. To learn more about pediatric vaccinations (ages 5-11), we invite you to visit the [facility] webpage. https://www.[facility].org/pages/[email or web address]-Lsvyo-Fnvtopkugnh-Gxhzitgqxv-Xckaq-Vlq stions.htmlTo learn more about the COVID-19 vaccine, we invite you to visit the CDC website for a list of frequently asked questions. https://www.cdc.gov/coronavirus/2019-ncov/vaccines/faq.html [facility] Patient Portal Access Instructions: Stay connected with your healthcare team and access your personal medical information anytime with the [facility] Patient Portal. If you would like a full copy of your medical records please contact the [facility] Medical Records Department Monday through Monday between 8a.m. and 4:30p.m. Please follow the directions below to access the portal: 1.Access the email account you provided upon registration to the [facility].2.Look for an invitation email from [facility].3.Open the email and access the invitation link: Accept Invitation to [facility].Fill in the required mendoza to create your account. Sign into [email or web address] with your username and password that you created in the above steps to stay up to date. You can then view a summary of results, a summary of your visits, and the ability to download your summaries to your computer or send the information securely to a physician. Remember that your healthcare information is confidential, so carefully consider who you will allow to register on the [facility] Patient Portal for access to your information. You can also access the [facility] Patient Portal on the [employer] armand. Simply click on Health Records under [employer] and then click on the [employer] logo. HOW TO SAFELY DISPOSE OF PRESCRIPTION MEDICATIONS Please use one of the following methods to safely dispose of your unused medications. 1.Use a drug disposal kit: the drug disposal pouch allows you to safely discard your old and unuseddrugs. Ask your nurse to give you one when you are discharged.2.Visit a local take-back location: Many local pharmacies and police departments have programs that collect old and unwanted prescriptiondrugs. Call your local pharmacy or go to http://Mophie.[employer] Software/6L8Ty3h to find one close to you.3.Make use of household items: Use cat litter or old coffee grounds to dispose medications if other options arenot available. Mix your drugs with these household products, seal them in an airtight container andthrow it into the garbage. Call [facility]: [phone] to be sure your drugs can be disposed of in this way. Some medicines may require a different approach.4.Never flush your medications down the toilet. IF YOU HAVE BEEN PRESCRIBED AN OPIOIDS FOR PAIN If you have been prescribed an opioid (such as hydrocodone, oxycodone or morphine), it is critical to understand the possible side effects and risks of opioid pain medications. Even when taken as directed, opioids can have several side effects including: Tolerance, meaning you might need to take more of a medication for the same pain relief. Nausea, vomiting and/or constipation. Sleepiness, dizziness, dry mouth, confusion, depression or itching. Physical dependence, meaning you have withdrawal symptoms when a medication is stopped ? this can develop within a few days. KNOW YOUR RESPONSIBILITIES It is important to know exactly how much and how often to take the opioid pain medications you are prescribed. Never take opioids in higher amounts or more often than prescribed. Do not combine opioids with alcohol or other drugs that cause drowsiness, such as benzodiazepines, also known as benzos,including diazepam and alprazolam, muscle relaxants or sleep aids. Never sell or share prescriptionopioids. This is illegal. Store opioids in a secure place and out of reach of others (including children, family, friends and visitors). The last page(s) of this document has been signed and retained as a CHART COPY Signatures Patient Education Materials Plantar Fasciitis Medication Leaflets My discharge plan and instructions have been reviewed and explained to me and ISHIRA DESTINY A understand my current condition and have read and understand these discharge instructions. I have received a written copy of the plan/instructions. If I have questions, I am aware that I should contactmy doctor. Patient/Drying Equipment Operator Signature: Date/Time: Relationship to Patient: Witness Name/Signature: Date/Time: [facility]09-01-2024 Note ORIGINAL EXAMINATION: 3XRAY VIEWS OF THE ANKLE AND FOOT LEFT 02/25/2024 6:24 pm COMPARISON: None. HISTORY: ORDERING SYSTEM PROVIDED HISTORY: Reason for Exam: foot pain, no trauma FINDINGS: No fracture or dislocation. No radiopaque foreign body. Mild widening of the tibiotalar joint space laterally, which could be projectional. IMPRESSION: No acute osseous abnormality by radiograph. Interpreted by: John Soto Preliminary Report By: John Soto Electronically signed By John Soto Dictated Date: 02/25/2024 6:29:32 PM Prelim Date: 02/25/2024 6:32:20 PM Sign Date: 02/25/2024 6:32:20 PM Ordering Provider: [facility]05-12-2024 Note. MICRO - Microbiology PROCEDURE: Urine Culture [*1] SOURCE: Urine, Clean Catch BODY SITE: COLLECTED DATE/TIME: 11/02/2023 17:21 EDT RECEIVED DATE/TIME: 11/03/2023 20:19 EDT START DATE/TIME: 11/03/2023 20:20 EDT FREE TEXT SOURCE: FINAL REPORTS Final Report [] Verified Date/Time/Personnel: 11/05/2023 07:49 EDT 10,000 - 50,000 cfu/ml Multiple bacterial morphotypes present. Probable Contamination. Suggest recollection if clinically indicated. PRELIMINARY REPORTS Preliminary Report [] Verified Date/Time/Personnel: 11/04/2023 10:40 EDT No growth to date Performing Locations *1: This test was performed at: [facility], [address] [place] [address], [phone] , [facility] ([place])10-11-2023 Note. MICRO - Microbiology PROCEDURE: Urine Culture [*1] SOURCE: Urine, Clean Catch BODY SITE: COLLECTED DATE/TIME: 10/10/2023 16:38 EDT RECEIVED DATE/TIME: 10/10/2023 19:38 EDT START DATE/TIME: 10/10/2023 19:38 EDT FREE TEXT SOURCE: FINAL REPORTS Final Report [] Verified Date/Time/Personnel: 10/11/2023 14:43 EDT <10,000 cfu/ml. No Significant growth. Sensitivity not indicated. Performing Locations *1: This test was performed at: [facility], [address] [place] [address], [phone] , [facility] ([place])06-21-2023 Hospital Discharge instructions Patient Education 06/21/2023 08:37:11 Neck Sprain or Strain Neck Sprain or Strain A sudden force that causes turning or bending of the neck can cause sprain or strain. An example would be the force from a car accident. This can stretch or tear muscles called a strain. It can also stretch or tear ligaments called a sprain. Either of these can cause neck pain. Sometimes neck pain occurs after a simple awkward movement. In either case, muscle spasm is commonly present and contributes to the pain. Unless you had a forceful physical injury (for example, a car accident or fall), X-rays are often not ordered for the initial evaluation of neck pain. If pain continues and does not respond to medical treatment, X-rays and other tests may be done later. Home care You may feel more soreness and spasm the first few days after the injury. Rest until symptoms startto improve. When lying down, use a comfortable pillow or a rolled towel that supports the head and keeps the spine in a neutral position. The position of the head should not be tilted forward or backward. Apply an ice pack over the injured area for 15 to 20 minutes every 3 to 6 hours. Do this for the first 24 to 48 hours. You can make an ice pack by filling a plastic bag that seals at the top with icecubes and then wrapping it with a thin towel. After 48 hours, apply heat (warm shower or warm bath)for 15 to 20 minutes several times a day, or alternate ice and heat. You may use tyvf-rka-gbxzqyw pain medicine to control pain, unless another pain medicine was prescribed. If you have chronic liver or kidney disease or ever had a stomach ulcer or gastrointestinal bleeding, talk with your healthcare provider before using these medicines. If a soft cervical collar was prescribed, only ear it for periods of increased pain. It should not be worn for more than 3 hours a day, or for longer than 1 to 2 weeks. Follow-up care Follow up with your healthcare provider, or as directed. Physical therapy may be needed. Sometimes fractures don t show up on the first X-ray. Bruises and sprains can sometimes hurt as much as a fracture. These injuries can take time to heal completely. If your symptoms don t improve or they get worse, talk with your healthcare provider. You may need a repeat X-ray or other tests. If X-rays were taken, you will be told of any new findings that may affect your care. Call 911 Call 911 if you have: Neck swelling, difficulty or painful swallowing Trouble breathing Chest pain When to seek medical advice Call your healthcare provider right away if any of these occur: Pain becomes worse or spreads into your arms or legs Weakness or numbness in one or both arms or legs [phone] [employer] [address] [place] [address]. All rights reserved. This information is not intended as a substitute for professional medical care. Always follow yourhealthcare professional's instructions. Follow Up Care 06/21/2023 08:16:58 With:NATALY THORPE DO Address: [address] [place] [phone] When:2-4 days [facility] 12-27-2023 Note Discharge Instructions Thank you for allowing [facility] to assist you with your healthcare needs. The following is importantdischarge information regarding your hospital visit. Diagnosis from Today's Visit Fall Neck ache Strain of neck muscle What to Do Next Instructions from Your Care Team No qualifying data available. Post Acute Orders No qualifying data available. You Need to Schedule the Following Appointments Follow Up with NATALY THORPE DO When Within 2-4 days Where: [address] [place] [phone] Allergies Peaches (Itching) coconut Medications Please ask your primary doctor or pharmacist before taking any other medication not listed, including over the counter drugs, herbal medications, vitamins and or supplements as they may interact withyour home medications. What How Much When Instructions Last Dose New cyclobenzaprine (cyclobenzaprine 5 mg oral tablet) 1 tab(s) by mouth Three (3) times a day Duration: 5 Days Printed Prescription New naproxen (naproxen 250 mg oral tablet) 1 tab(s) by mouth Two (2) times a day Duration: 5 Days Printed Prescription Unchanged famotidine (Zantac 360) by mouth as needed. Unchanged fexofenadine (Erica 24 Hour Allergy oral tablet) 1 tab(s) by mouth Every day as needed for for allergy symptoms Unchanged fludrocortisone (fludrocortisone 0.1 mg oral tablet) 1 tab(s) by mouth Every day Please take this list to your next doctor s visit. Bring all medications you take, including over the counter medications, herbals and other supplements with you to your doctor s visit. Patients and families are reminded to discard old lists and to update any records with all medication providers or retail pharmacies. Medication Leaflets cyclobenzaprine (laurita brown) Amrix, Fexmid What is the most important information I should know about cyclobenzaprine? You should not use cyclobenzaprine if you have a thyroid disorder, heart block, congestive heart failure, a heart rhythm disorder, or you have recently had a heart attack. Do not use cyclobenzaprine if you have taken an MAO inhibitor in the past 14 days, such as isocarboxazid, linezolid, phenelzine, rasagiline, selegiline, or tranylcypromine. What is cyclobenzaprine? Cyclobenzaprine is a muscle relaxant. It works by blocking nerve impulses (or pain sensations) thatare sent to your brain. Cyclobenzaprine is used together with rest and physical therapy to relieve muscle spasms caused by painful conditions such as an injury. Cyclobenzaprine may also be used for purposes not listed in this medication guide. What should I discuss with my healthcare provider before taking cyclobenzaprine? You should not use cyclobenzaprine if you are allergic to it, or if you have: a thyroid disorder; heart block, heart rhythm disorder, congestive heart failure; or if you have recently had a heart attack. Cyclobenzaprine is not approved for use by anyone younger than 15 years old. Do not use cyclobenzaprine if you have taken an MAO inhibitor in the past 14 days. A dangerous druginteraction could occur. MAO inhibitors include isocarboxazid, linezolid, phenelzine, rasagiline, selegiline, and tranylcypromine. Some medicines can interact with cyclobenzaprine and cause a serious condition called serotonin syndrome. Be sure your doctor knows if you also take stimulant medicine, opioid medicine, herbal products, or medicine for depression, mental illness, Parkinson's disease, migraine headaches, serious infections, or prevention of nausea and vomiting. Ask your doctor before making any changes in how or when you take your medications. Tell your doctor if you have ever had: liver disease; glaucoma; enlarged prostate; or problems with urination. It is not known whether this medicine will harm an unborn baby. Tell your doctor if you are or plan to become . It may not be safe to breast-feed while using this medicine. Ask your doctor about any risk. Older adults may be more sensitive to the effects of this medicine. How should I take cyclobenzaprine? Follow all directions on your prescription label and read all medication guides or instruction sheets. Your doctor may occasionally change your dose. Use the medicine exactly as directed. Cyclobenzaprine is usually taken once daily for only 2 or 3 weeks. Follow your doctor's dosing instructions very carefully. Swallow the capsule whole and do not crush, chew, break, or open it. Take the medicine at the same time each day. Call your doctor if your symptoms do not improve after 3 weeks, or if they get worse. Store at room temperature away from moisture, heat, and light. What happens if I miss a dose? Take the medicine as soon as you can, but skip the missed dose if it is almost time for your next dose. Do not take two doses at one time. What happens if I overdose? Seek emergency medical attention or call the Poison Help line at . An overdose of cyclobenzaprine can be fatal. Overdose symptoms may include severe drowsiness, vomiting, fast heartbeats, tremors, agitation, or hallucinations. What should I avoid while taking cyclobenzaprine? Avoid driving or hazardous activity until you know how this medicine will affect you. Your reactions could be impaired. Avoid drinking alcohol. Dangerous side effects could occur. What are the possible side effects of cyclobenzaprine? Get emergency medical help if you have signs of an allergic reaction: hives; difficult breathing; swelling of your face, lips, tongue, or throat. Stop using cyclobenzaprine and call your doctor at once if you have: fast or irregular heartbeats; chest pain or pressure, pain spreading to your jaw or shoulder; or sudden numbness or weakness (especially on one side of the body), slurred speech, balance problems. Seek medical attention right away if you have symptoms of serotonin syndrome, such as: agitation, hallucinations, fever, sweating, shivering, fast heart rate, muscle stiffness, twitching, loss of coordination, nausea, vomiting, or diarrhea. Serious side effects may be more likely in older adults. Common side effects may include: drowsiness, tiredness; headache, dizziness; dry mouth; or upset stomach, nausea, constipation. This is not a complete list of side effects and others may occur. Call your doctor for medical advice about side effects. You may report side effects to FDA at 0-898-KJZ-0886. What other drugs will affect cyclobenzaprine? Using cyclobenzaprine with other drugs that make you drowsy can worsen this effect. Ask your doctorbefore using opioid medication, a sleeping pill, a muscle relaxer, or medicine for anxiety or seizures. Tell your doctor about all your other medicines, especially: bupropion (Zyban, for smoking cessation); meperidine; tramadol; verapamil; cold or allergy medicine that contains an antihistamine (Benadryl and others); medicine to treat Parkinson's disease; medicine to treat excess stomach acid, stomach ulcer, motion sickness, or irritable bowel syndrome; medicine to treat overactive bladder; or bronchodilator asthma medication. This list is not complete. Other drugs may affect cyclobenzaprine, including prescription and wzaf-ykz-hwfrkur medicines, vitamins, and herbal products. Not all possible drug interactions are listed here. Where can I get more information? Your pharmacist can provide more information about cyclobenzaprine. Remember, keep this and all other medicines out of the reach of children, never share your medicines with others, and use this medication only for the indication prescribed. Every effort has been made to ensure that the information provided by [employer]. ('[employer]') is accurate, up-to-date, and complete, but no guarantee is made to that effect. Drug information contained herein may be time sensitive. [employer] information has been compiled for use by healthcare practitioners and consumers in the [place] and therefore [employer] does not warrant that uses outside of the [place] are appropriate, unless specifically indicated otherwise. [employer] drug information does not endorse drugs, diagnose patients or recommend therapy. [employer] drug information isan informational resource designed to assist licensed healthcare practitioners in caring for their p atients and/or to serve consumers viewing this service as a supplement to, and not a substitute for, the expertise, skill, knowledge and judgment of healthcare practitioners. The absence of a warningfor a given drug or drug combination in no way should be construed to indicate that the drug or drug combination is safe, effective or appropriate for any given patient. [facility] does not assume any responsibility for any aspect of healthcare administered with the aid of information [employer] provides. The information contained herein is not intended to cover all possible uses, directions, precautions, warnings, drug interactions, allergic reactions, or adverse effects. If you have questions about the drugs you are taking, check with your doctor, nurse or pharmacist. Copyright 9672-2916 [facility] [employer]. Version: 7.01. Revision Date: 01/27/2023. naproxen (na PROX en) Aleve, Aleve Back and Muscle Pain, Aleve Easy Open Arthritis, Aleve Liquid Gels, Anaprox-DS, EC-Naprosyn, Naprelan, Naprosyn What is the most important information I should know about naproxen? Naproxen can increase your risk of fatal heart attack or stroke. Do not use this medicine just before or after heart bypass surgery (coronary artery bypass graft, or CABG). Naproxen may also cause stomach or intestinal bleeding, which can be fatal. What is naproxen? Naproxen is a nonsteroidal anti-inflammatory drug (NSAID). Naproxen is used to treat pain or inflammation caused by conditions such as arthritis, ankylosing spondylitis, tendinitis, bursitis, gout, or menstrual cramps. The delayed-release or extended-release tablets are slower-acting forms of naproxen that are used only for treating chronic conditions such as arthritis or ankylosing spondylitis. These forms of naproxen will not work fast enough to treat acute pain. Naproxen may also be used for purposes not listed in this medication guide. What should I discuss with my healthcare provider before taking naproxen? Naproxen can increase your risk of fatal heart attack or stroke, even if you don't have any risk factors. Do not use this medicine just before or after heart bypass surgery (coronary artery bypass graft, or CABG). Naproxen may also cause stomach or intestinal bleeding, which can be fatal. These conditions can occur without warning while you are using naproxen, especially in older adults. You should not use naproxen if you are allergic to it, or if you have ever had an asthma attack or severe allergic reaction after taking aspirin or an NSAID. Ask a doctor before giving naproxen to a child younger than 12 years old. Ask a doctor or pharmacist if this medicine is safe to use if you have: heart disease, high blood pressure, high cholesterol, diabetes, or if you smoke; a heart attack, stroke, or blood clot; stomach ulcers or bleeding; asthma; liver or kidney disease; fluid retention; or if you take aspirin to prevent heart attack or stroke. If you are , you should not take naproxen unless your doctor tells you to. Taking an NSAID during the last 20 weeks of can cause serious heart or kidney problems in the unborn baby and possible complications with your . It may not be safe to breastfeed while using this medicine. Ask your doctor about any risk. How should I take naproxen? Use exactly as directed on the label, or as prescribed by your doctor. Use the lowest dose that is effective in treating your condition. Shake the oral suspension (liquid) before you measure a dose. Measure a dose with the supplied measuring device (not a kitchen spoon). Take this medicine with food or milk if it upsets your stomach. Always follow directions on the medicine label about giving this medicine to a child. Naproxen doses are based on weight in children. Your child's dose needs may change if the child gains or loses weight. If you use naproxen long-term, you may need frequent medical tests. This medicine can affect the results of certain medical tests. Tell any doctor who treats you that you are using naproxen. Store at room temperature away from moisture, heat, and light. Keep the bottle tightly closed when not in use. What happens if I miss a dose? Since naproxen is used when needed, you may not be on a dosing schedule. Skip any missed dose if it's almost time for your next dose. Do not use two doses at one time. What happens if I overdose? Seek emergency medical attention or call the Poison Help line at . What should I avoid while taking naproxen? Avoid drinking alcohol. It may increase your risk of stomach bleeding. Avoid taking aspirin or other NSAIDs unless your doctor tells you to. Ask a doctor or pharmacist before using other medicines for pain, fever, swelling, or cold/flu symptoms. They may contain ingredients similar to naproxen (such as aspirin, ibuprofen, or ketoprofen). Ask your doctor before using an antacid, and use only the type your doctor recommends. Some antacids can make it harder for your body to absorb naproxen. What are the possible side effects of naproxen? Get emergency medical help if you have signs of an allergic reaction (runny or stuffy nose, wheezing or trouble breathing, hives, swelling in your face or throat) or a severe skin reaction (fever, sore throat, burning eyes, skin pain, red or purple skin rash with blistering and peeling). Stop using naproxen and seek medical treatment if you have a serious drug reaction that can affect many parts of your body. Symptoms may include skin rash, fever, swollen glands, muscle aches, severeweakness, unusual bruising, or yellowing of your skin or eyes. Get emergency medical help if you have signs of a heart attack or stroke: chest pain spreading to your jaw or shoulder, sudden numbness or weakness on one side of the body, slurred speech, leg swelling, feeling short of breath. Stop using naproxen and call your doctor at once if you have: shortness of breath (even with mild exertion); swelling or rapid weight gain; the first sign of any skin rash or blister, no matter how mild; signs of stomach bleeding--bloody or tarry stools, coughing up blood or vomit that looks like coffee grounds; liver problems--nausea, upper stomach pain, loss of appetite, dark urine, chris- colored stools, jaundice (yellowing of the skin or eyes); kidney problems--little or no urination, painful urination, swelling in your feet or ankles; or low red blood cells (anemia)--pale skin, unusual tiredness, feeling light-headed or short of breath, cold hands and feet. Common side effects may include: headache; indigestion, heartburn, stomach pain; or flu symptoms; This is not a complete list of side effects and others may occur. Call your doctor for medical advice about side effects. You may report side effects to FDA at 0-108-QOJ-3037. What other drugs will affect naproxen? Ask your doctor before using naproxen if you take an antidepressant. Taking certain antidepressantswith an NSAID may cause you to bruise or bleed easily. Ask a doctor or pharmacist before using naproxen with any other medications, especially: other NSAIDs or salicylates (diflunisal, salsalate); antacids and sucralfate; cholestyramine; cyclosporine; digoxin; lithium; methotrexate; pemetrexed; probenecid; warfarin (Coumadin, Jantoven) or similar blood thinners; a diuretic or 'water pill'; or heart or blood pressure medication. This list is not complete. Other drugs may affect naproxen, including prescription and osam-xcv-ebwzgoo medicines, vitamins, and herbal products. Not all possible drug interactions are listed here. Where can I get more information? Your pharmacist can provide more information about naproxen. Remember, keep this and all other medicines out of the reach of children, never share your medicines with others, and use this medication only for the indication prescribed. Every effort has been made to ensure that the information provided by [employer]. ('[employer]') is accurate, up-to-date, and complete, but no guarantee is made to that effect. Drug information contained herein may be time sensitive. [employer] information has been compiled for use by healthcare practitioners and consumers in the [place] and therefore [employer] does not warrant that uses outside of the [place] are appropriate, unless specifically indicated otherwise. [employer] drug information does not endorse drugs, diagnose patients or recommend therapy. [employer] drug information isan informational resource designed to assist licensed healthcare practitioners in caring for their p atients and/or to serve consumers viewing this service as a supplement to, and not a substitute for, the expertise, skill, knowledge and judgment of healthcare practitioners. The absence of a warningfor a given drug or drug combination in no way should be construed to indicate that the drug or drug combination is safe, effective or appropriate for any given patient. [facility] does not assume any responsibility for any aspect of healthcare administered with the aid of information [facility] provides. The information contained herein is not intended to cover all possible uses, directions, precautions, warnings, drug interactions, allergic reactions, or adverse effects. If you have questions about the drugs you are taking, check with your doctor, nurse or pharmacist. Copyright [id number] [employer]. Version: 22.. Revision Date: 01/26/2023. Education Materials Neck Sprain or Strain A sudden force that causes turning or bending of the neck can cause sprain or strain. An example would be the force from a car accident. This can stretch or tear muscles called a strain. It can also stretch or tear ligaments called a sprain. Either of these can cause neck pain. Sometimes neck pain occurs after a simple awkward movement. In either case, muscle spasm is commonly present and contributes to the pain. Unless you had a forceful physical injury (for example, a car accident or fall), X-rays are often not ordered for the initial evaluation of neck pain. If pain continues and does not respond to medical treatment, X-rays and other tests may be done later. Home care You may feel more soreness and spasm the first few days after the injury. Rest until symptoms startto improve. When lying down, use a comfortable pillow or a rolled towel that supports the head and keeps the spine in a neutral position. The position of the head should not be tilted forward or backward. Apply an ice pack over the injured area for 15 to 20 minutes every 3 to 6 hours. Do this for the first 24 to 48 hours. You can make an ice pack by filling a plastic bag that seals at the top with icecubes and then wrapping it with a thin towel. After 48 hours, apply heat (warm shower or warm bath)for 15 to 20 minutes several times a day, or alternate ice and heat. You may use zwrn-qua-ehviqww pain medicine to control pain, unless another pain medicine was prescribed. If you have chronic liver or kidney disease or ever had a stomach ulcer or gastrointestinal bleeding, talk with your healthcare provider before using these medicines. If a soft cervical collar was prescribed, only ear it for periods of increased pain. It should not be worn for more than 3 hours a day, or for longer than 1 to 2 weeks. Follow-up care Follow up with your healthcare provider, or as directed. Physical therapy may be needed. Sometimes fractures don t show up on the first X-ray. Bruises and sprains can sometimes hurt as much as a fracture. These injuries can take time to heal completely. If your symptoms don t improve or they get worse, talk with your healthcare provider. You may need a repeat X-ray or other tests. If X-rays were taken, you will be told of any new findings that may affect your care. Call 911 Call 911 if you have: Neck swelling, difficulty or painful swallowing Trouble breathing Chest pain When to seek medical advice Call your healthcare provider right away if any of these occur: Pain becomes worse or spreads into your arms or legs Weakness or numbness in one or both arms or legs [id number] [employer]. [address] [place] [address]. All rights reserved. This information is not intended as a substitute for professional medical care. Always follow yourhealthcare professional's instructions. Additional Information VACCINATE! IT SAVES LIVES! Members of the community who have not yet received the COVID-19 vaccine and would like to receive it can visit one of [facility] vaccine clinics. There are many vaccine clinic locations within the [facility]. For locations and available times, please visit [email or web address] It is important to note that some COVID mobile vaccine clinics are held outdoors and may be canceled in rainy or stormy conditions. To learn more about pediatric vaccinations (ages 5-11), we invite you to visit the [facility] webpage. https://www.[email or web address]/pages/1937-Bytek-Ngciccfuevb-[email or web address]-Gpfyl-Jyp stions.htmlTo learn more about the COVID-19 vaccine, we invite you to visit the CDC website for a list of frequently asked questions. https://www.cdc.gov/coronavirus/2019-ncov/vaccines/faq.html [facility] Patient Portal Access Instructions: Stay connected with your healthcare team and access your personal medical information anytime with the [facility] Patient Portal. If you would like a full copy of your medical records please contact the [facility] Medical Records Department Monday through Monday between 8a.m. and 4:30p.m. Please follow the directions below to access the portal: 1.Access the email account you provided upon registration to the hospital.2.Look for an invitation email from [facility].3.Open the email and access the invitation link: Accept Invitation to [facility].Fill in the required mendoza to create your account. Sign into [email or web address] with your username and password that you created in the above steps to stay up to date. You can then view a summary of results, a summary of your visits, and the ability to download your summaries to your computer or send the information securely to a physician. Remember that your healthcare information is confidential, so carefully consider who you will allow to register on the [facility] Patient Portal for access to your information. You can also access the [facility] Patient Portal on the [employer] armand. Simply click on Health Records under [employer] and then click on the [facility] logo. HOW TO SAFELY DISPOSE OF PRESCRIPTION MEDICATIONS Please use one of the following methods to safely dispose of your unused medications. 1.Use a drug disposal kit: the drug disposal pouch allows you to safely discard your old and unuseddrugs. Ask your nurse to give you one when you are discharged.2.Visit a local take-back location: Many local pharmacies and police departments have programs that collect old and unwanted prescriptiondrugs. Call your local pharmacy or go to http://bit.ly/0Y4Rh6q to find one close to you.3.Make use of household items: Use cat litter or old coffee grounds to dispose medications if other options arenot available. Mix your drugs with these household products, seal them in an airtight container andthrow it into the garbage. Call [facility]: [phone] to be sure your drugs can be disposed of in this way. Some medicines may require a different approach.4.Never flush your medications down the toilet. IF YOU HAVE BEEN PRESCRIBED AN OPIOIDS FOR PAIN If you have been prescribed an opioid (such as hydrocodone, oxycodone or morphine), it is critical to understand the possible side effects and risks of opioid pain medications. Even when taken as directed, opioids can have several side effects including: Tolerance, meaning you might need to take more of a medication for the same pain relief. Nausea, vomiting and/or constipation. Sleepiness, dizziness, dry mouth, confusion, depression or itching. Physical dependence, meaning you have withdrawal symptoms when a medication is stopped ? this can develop within a few days. KNOW YOUR RESPONSIBILITIES It is important to know exactly how much and how often to take the opioid pain medications you are prescribed. Never take opioids in higher amounts or more often than prescribed. Do not combine opioids with alcohol or other drugs that cause drowsiness, such as benzodiazepines, also known as benzos,including diazepam and alprazolam, muscle relaxants or sleep aids. Never sell or share prescriptionopioids. This is illegal. Store opioids in a secure place and out of reach of others (including children, family, friends and visitors). The last page(s) of this document has been signed and retained as a CHART COPY Signatures Patient Education Materials Neck Sprain or Strain Medication Leaflets cyclobenzaprine, naproxen My discharge plan and instructions have been reviewed and explained to me and ISHIRA DESTINY A understand my current condition and have read and understand these discharge instructions. I have received a written copy of the plan/instructions. If I have questions, I am aware that I should contactmy doctor. Patient/Drying Equipment Operator Signature: Date/Time: Relationship to Patient: Witness Name/Signature: Date/Time: [facility]12-11-2023 Note. MICRO - Microbiology PROCEDURE: Throat Culture [*1] SOURCE: Tonsils BODY SITE: COLLECTED DATE/TIME: 06/03/2023 10:18 EST RECEIVED DATE/TIME: 06/03/2023 17:19 EST START DATE/TIME: 06/03/2023 17:19 EST FREE TEXT SOURCE: FINAL REPORTS Final Report [] Verified Date/Time/Personnel: 06/05/2023 07:24 EST Normal throat radha present Sensitivity Testing: Not Indicated PRELIMINARY REPORTS Preliminary Report [] Verified Date/Time/Personnel: 06/04/2023 12:59 EST Negative for upper respiratory pathogens at 24 hours. Performing Locations *1: This test was performed at: [address], [address] [place], [place] [address]03-05-2023 Note. MICRO - Microbiology PROCEDURE: Throat Culture [*1] SOURCE: Throat BODY SITE: COLLECTED DATE/TIME: 03/03/2023 12:13 EDT RECEIVED DATE/TIME: 03/03/2023 21:15 EDT START DATE/TIME: 03/03/2023 21:15 EDT FREE TEXT SOURCE: FINAL REPORTS Final Report [] Verified Date/Time/Personnel: 03/05/2023 11:29 EDT Normal throat radha present Sensitivity Testing: Not Indicated PRELIMINARY REPORTS Preliminary Report [] Verified Date/Time/Personnel: 03/04/2023 08:36 EDT Culture results pending. Performing Locations *1: This test was performed at: [address], [address] [place], [place] [address]08-12-2022 History of Present illness Narrative* Elmer Marques MD - 08/12/2022 7:21 PM EST Patient presents with: Vomiting: ST x1 day HPI: Feeling sick since yesterday Positive symptoms: Sore throat, Vomiting, Nasal Congestion, Headache, Negative symptoms: Cough, Fever, Diarrhea, OTC: Tylenol MEDICATIONS: Current Outpatient Medications Medication Sig RANITIDINE HCL (ZANTAC 75 ORAL) Take by mouth. as necessary fexofenadine (ERICA) 180 mg tablet 180 mg. (Patient not taking: Reported on 08/12/2022) ISOtretinoin 30 mg capsule take 1 capsule by mouth once daily WITH FATTY FOODS (Patient not taking:Reported on 08/12/2022) ESTARYLLA 0.25-35 mg-mcg per tablet (Patient not taking: Reported on 08/12/2022) spironolactone (ALDACTONE) 100 mg tablet 100 mg. (Patient not taking: Reported on 08/12/2022) ethosuximide (ZARONTIN) 250 mg capsule Take 250 mg by mouth twice daily. (Patient not taking: No sig reported) MELATONIN ORAL Take by mouth. as necessary (Patient not taking: No sig reported) No current facility-administered medications for this visit. ALLERGIES: ALLERGIES Allergen Reactions Coconut Hives VITALS: BP 124/82 Pulse 111 Temp 37.6 C (99.6 F) Resp 18 Wt 74.1 kg (163 lb 6.4 oz) SpO2 98% PHYSICAL EXAM: GEN: mildly ill appearing. Accompanied by her mother. HEENT: PERRL, EOMI, conjunctiva clear Ears: canals clear RTM without erythema, bulge, or effusion; LTM without erythema, bulge, or effusion Nose: no drainage Throat: moist mucous membranes, pharyngeal erythema, trace exudate Neck: supple, no thyromegaly, no lymphadenopathy HEART: regular rate and rhythm, no murmurs LUNGS: clear to auscultation, no wheezes or crackles, no increased WOB ASSESSMENT/PLAN: 1. Sore throat - ICD9: 462, ICD10: J02.9 - STREP A MOLECULAR (POC) - negative. - suspect viral URI - Discussed supportive care treatment with rest, cold medicine, and analgesia. Hydration encouraged. Resume normal solid intake as tolerated. Follow up in the ER with signs of dehydration, increasing abdominal pain, high fever, or blood in vomit or stool. 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 Another animal there has a respiratory illness. Consider further evaluation for zoonosis (such as Q fever) or mononucleosis if not improving. Elmer Marques MD [facility] SARS-CoV-2 (COVID-19) RNA AMRIT+probe Ql (Nph)Negative *NA* (06/20/22 12:17 PM)AO Auto Urine [id number] HCoV 229E RNA AMRIT+non-probe Ql (Nph)Not Detected *NA* (03/01/22 4:24 PM) Auto Viro/Sero [id number] Hospital Discharge instructions Patient Education 10/19/2021 21:31:51 R.I.C.E. RICE RICE stands for rest, ice, compression, and elevation. Doing these things helps limit pain and swelling after an injury. RICE also helps injuries heal faster. Use RICE for sprains, strains, and severe bruises or bumps. Follow the tips on this handout and begin RICE as soon as possible after an injury. Rest Pain is your body s way of telling you to rest an injured area. Whether you have hurt an elbow, hand, foot, or knee, limiting its use will prevent further injury and help you heal. Ice Applying ice right after an injury helps prevent swelling and reduce pain. Don t place ice directlyon your skin. Wrap a cold pack or bag of ice in a thin cloth. Place it over the injured area. Ice for 10 minutes every 3 hours. Don t ice for more than 20 minutes at a time. Compression Putting pressure (compression) on an injury helps prevent swelling and provides support. Wrap the injured area firmly with an elastic bandage. If your hand or foot tingles, becomes discolored, or feels cold to the touch, the bandage may be too tight. Rewrap it more loosely. If your bandage becomes too loose, rewrap it. Do not wear an elastic bandage overnight. Elevation Keeping an injury elevated helps reduce swelling, pain, and throbbing. Elevation is most effective when the injury is kept elevated higher than the heart. Call your healthcare provider if you notice any of the following: Fingers or toes feel numb, are cold to the touch, or change color. Skin looks shiny or tight. Pain, swelling, or bruising worsens and is not improved with elevation. [id number] [employer] [address] [place] [address], [place] [address]. All rights reserved. This information is not intended as a substitute for professional medical care. Always follow yourhealthcare professional's instructions. 10/19/2021 21:31:46 Ankle Sprain (Adult) Ankle Sprain (Adult) An ankle sprain is a stretching or tearing of the ligaments that hold the ankle joint together. There are no broken bones. An ankle sprain is a common injury for both children and adults. It happens when the ankle turns, twists, or rolls in an awkward way. This can be caused by a sports injury. Or it can happen from doing something as simple as stepping on an uneven surface. Ligaments are made of tough connective tissue. Normally, ligaments stretch a certain amount and then go back to their normal place. A sprain happens when a ligament is forced to stretch more than thenormal amount. A severe sprain can actually tear the ligaments. If you have a severe sprain, you may have felt or heard something like a pop when you were injured. Ankle sprains are given a grade depending on whether they are mild, moderate, or severe: Grade 1 sprain. A mild sprain with minor stretching and damage to the ligament. Grade 2 sprain. A moderate sprain where the ligament is partly torn. Grade 3 sprain. The most severe kind of sprain. The ligament is completely torn. Most sprains take about 4 to 6 weeks to heal. A severe sprain can take several months to recover. Your healthcare provider may order X-rays to be sure you don t have a fracture, or broken bone. The injured area will feel sore. Swelling and pain may make it hard to walk. You may need crutches if walking is painful. Or your provider may have you use a cast boot or air splint. This will dependon the grade of ankle sprain that you have. Home care For a Grade 1 sprain, use RICE (rest, ice, compression, and elevation): Rest your ankle. Don t walk on it. Ice should be used right away to help control swelling. Place an ice pack over the injured area for20 minutes. Do this every 3 to 6 hours for the first 24 to 48 hours. Keep using ice packs to ease pain and swelling as needed. To make an ice pack, put ice cubes in a plastic bag that seals at the top. Wrap the bag in a clean, thin towel or cloth. Never put ice or an ice pack directly on the skin. The ice pack can be put right on the cast, bandage, or splint. As the ice melts, be careful that thecast, bandage, or splint doesn t get wet. If you have a boot, open it to apply an ice pack, unless told otherwise by your provider. Compression devices help to control swelling. They also keep the ankle from moving and support yourinjured ankle. These devices include dressings, bandages, and wraps. Elevate or raise your ankle above the level of your heart when sitting or lying down. This is very important for the first 48 hours. Follow the RICE guidelines for a Grade 2 sprain. This type of sprain will take longer to heal. Yourprovider may have you wear a splint, cast, or brace to keep your ankle from moving. If you have a Grade 3 sprain, you are at risk for long-term ankle instability. In rare cases, surgery may be needed. Your provider may have you wear a short leg cast or a walking boot for 2 to 3 weeks. After 48 hours, it may be helpful to apply heat for 20 minutes several times a day. You can do thiswith a heating pad or warm compress. Or you may want to go back and forth between using ice and heat. Never apply heat directly to the skin. Always wrap the heating pad or warm compress in a clean, thin towel or cloth. You may use bjig-mal-zgrbrdo pain medicine (NSAIDS or nonsteroidal anti- inflammatory drugs) to control pain, unless another pain medicine was prescribed. Talk with your provider before using these medicines if you have chronic liver or kidney disease, or have ever had a stomach ulcer or gastrointestinal bleeding. Follow any rehabilitation exercises your provider gives you. These can help you be more flexible and improve your balance and coordination. This is helpful in preventing long-term ankle problems. Prevention To help prevent ankle sprains, it s important to have good strength, balance, and flexibility. Be sure to: Always warm up before you exercise or do something very active Be careful when walking or running on uneven or cracked surfaces Wear shoes that are in good condition and fit well Listen to your body s signals to slow down when you are in pain or tired Follow-up care Any X-rays you had today don t show any broken bones, breaks, or fractures. Sometimes fractures dont show up on the first X-ray. Bruises and sprains can sometimes hurt as much as a fracture. These injuries can take time to heal completely. If your symptoms don t get better or they get worse, talk with your healthcare provider. You may need a repeat X-ray. Follow up with your healthcare provider, or as advised. Check for any warning signs listed below. When to seek medical advice Call your healthcare provider right away if any of these occur: Fever of 100.4 F (38 C) or higher, or as directed by your healthcare provider [place] The injury doesn t seem to be healing The swelling comes back The cast or splint has a bad smell The plaster cast or splint gets wet or soft The fiberglass cast or splint gets wet and does not dry for 24 hours The pain or swelling increases, or redness appears Your toes become cold, blue, numb, or tingly The skin is discolored (looks blue, purple, or chaudhari), has blisters, or is irritated You re-injure your ankle [id number] [employer] [address] [place] [address]. All rights reserved. This information is not intended as a substitute for professional medical care. Always follow yourhealthcare professional's instructions. Follow Up Care 10/19/2021 21:09:19 With:JUVENAL SEE MD, Orthopedic Address: [address] [place] [address] [place] [address]- When:2-4 days [facility] 11-02-2021 Evaluation + Plan note Diagnostic Tests Pending * LDL-Cholesterol, Direct 04/27/21 Future Scheduled Tests Laboratory* Stool for Occult Blood (Lab) 08/18/20 * Complete Blood Count 08/14/20 [facility] 02-23-2021 Evaluation + Plan note Future Scheduled Tests Laboratory* Stool for Occult Blood (Lab) 08/18/20 * Complete Blood Count 08/14/20 [facility] Evaluation + Plan note Future Appointments Appointment Date:07/13/2022 03:45:00 PM Scheduled Provider:NATALY THORPE DO Location:[facility] Appointment Type:PC Wellness Child [facility] Evaluation + Plan note Future Appointments Appointment Date:07/19/2023 03:30:00 PM Scheduled Provider:NATALY THORPE DO Location:[facility] Appointment Type:PC Wellness Annual [facility] Evaluation + Plan note Future Appointments Appointment Date:07/17/2023 03:30:00 PM Scheduled Provider:NATALY THORPE DO Location:[facility] Appointment Type:PC Wellness Child Appointment Date:07/19/2023 03:30:00 PM Scheduled Provider:NATALY THORPE DO Location:[facility] Appointment Type:PC Wellness Annual [facility] Evaluation + Plan note Future Appointments Appointment Date:11/09/2023 09:15:00 AM Scheduled Provider: Location:[facility] Appointment Type:PC Nurse Immunization [facility] [employer] + Plan note Future Appointments Appointment Date:11/08/2023 09:45:00 AM Scheduled Provider: Location:[facility] Appointment Type:PC Nurse Immunization Appointment Date:02/07/2024 10:30:00 AM Scheduled Provider:NATALY THORPE DO Location:[facility] Appointment Type:PC OV Follow Up [facility] [employer] + Plan note Future Appointments Appointment Date:08/19/2024 02:30:00 PM Scheduled Provider:NATALY THORPE DO Location:[facility] Appointment Type:PC Office Procedure Future Scheduled Tests Radiology* XR Spine Cervical w/ Flex/Ext 6 + Views 06/18/24 * MRI Shoulder w/o Contrast Right 06/12/24 [facility] [employer] note* Diagnosis Sore throat- Primary Acute pharyngitis [facility] Diagnosis Dizziness Dizziness and giddiness [facility] Diagnosis Puncture wound of right index finger- Primary Need for tetanus booster Need for prophylactic vaccination with tetanus toxoid alone [facility] Diagnosis Viral URI- Primary Acute upper respiratory infections of unspecified site Sore throat Acute pharyngitis Nasal congestion Other diseases of nasal cavity and sinuses Fever, unspecified fever cause RSV exposure Contact with or exposure to other viral diseases documented in this encounter [facility] note* Diagnosis Viral URI with cough- Primary Acute upper respiratory infections of unspecified site Fever, unspecified fever cause documented in this encounter [facility] noteNo assessment information availableWUniversity Hospitals [facility] Work Phone: Hospital course Narrative No data available for this section [facility] Hospital Discharge instructions No data available for this section [facility] Hospital Discharge instructions Additional Instructions X-ray negative for fracture. Cal wrap stirrups crutches for support. Continue ibuprofen 600 mg every 6 hours for next 2 days and as needed. Continue ice and elevate. Restrictions as given. Follow-up with our clinic or occupational health through your work.[facility] Work Phone: Progress note No data available for this section [facility] Reason for referral (narrative)No reason for referral information availableWUniversity Hospitals [facility] Work Phone: Summary Purpose Family History Relationship Condition Age at Onset Recorded Date/T vianney Not Specified Cardiac disease Unknown mother Diabetes mellitus Unknown No Family History Records Found Advance Directives No Advanced Directives Records Found Advance Directive Response Recorded Date/ Time Do you have a 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 No October 22, 2024 1:39pm Chief Complaint and Reason for Visit Chief Complaint Admit Date right ankle October 22, 2024 11: 39am Chief Complaint Admit Date right ankle October 22, 2024 11: 39am R ANKLE INJURY ER FU / [facility] October 29, 2024 1:08pm pain- RIGHT ANKLE October 29, 2024 1:25pm Reason for Visit Admit Date Right ankle sprain October 29, 2024 1:08pm Chief Complaint Admit Date right ankle October 22, 2024 11: 39am R ANKLE INJURY ER FU / [facility] October 29, 2024 1:08pm pain- RIGHT ANKLE October 29, 2024 1:25pm RELEASE TO GO BACK TO WORK November 21 3:38pm Additional Source Comments Care Team (unrecognized sect ion and content) Gateman Relationship Specialty Start Date End Date Nataly Thorpe DO PCP - General Family Medicine 04/04/16 Gateman Relationship Specialty Start Date End Date Nataly Thorpe DO [address] [place] [id number] PCP - General Family Medicine 01/11/19 Gateman Relationship Specialty Start Date End Date Nataly Thorpe DO PCP - General Family Medicine 04/04/16 Gateman Relationship Specialty Start Date End Date Nataly Thorpe DO PCP - General Family Medicine 04/04/16 Gateman Relationship Specialty Start Date End Date Nataly Thorpe DO PCP - General Family Medicine 04/04/16 Gateman Relationship Specialty Start Date End Date Nataly Thorpe DO PCP - General Family Medicine 04/04/16 Team Status: Active Member Role Status Dates Dr. Nataly Thorpe DO Primary Care Provider Active Team Status: Inactive Member Role Status Dates Dr. Nataly Thorpe DO Primary Care Provider Active Start: October 22, 2024 End: October 22, 2024 Dr. Ra Valdovinos DO Emergency Provider Active Start : October 22, 2024 End: October 22, 2024 Team Status: Inactive Member Role Status Dates Dr. Nataly Thorpe DO Primary Care Provider Active Start: October 22, 2024 End: October 22, 2024 Dr. Ra Valdovinos DO Attending Provider Active Start : October 22, 2024 End: October 22, 2024 Dr. Ra Valdovinos DO Emergency Provider Active Start : October 22, 2024 End: October 22, 2024 Team Status: Inactive Member Role Status Dates Dr. Nataly Thorpe DO Primary Care Provider Active Start: October 29, 2024 End: October 29, 2024 Dr. Nataly Thorpe DO Referring Provider Active Start: October 29, 2024 End: October 29, 2024 April MURCIA PA Attending Provider Active Start: October 29, 2024 End: October 29, 2024 Team Status: Inactive Member Role Status Dates Dr. Nataly Thorpe DO Primary Care Provider Active Start: October 29, 2024 End: October 29, 2024 April MURCIA PA Attending Provider Active Start: October 29, 2024 End: October 29, 2024 April MURCIA PA Referring Provider Active Start: October 29, 2024 End: October 29, 2024 Team Status: Inactive Member Role Status Dates Dr. Nataly Thorpe DO Primary Care Provider Active Start: November 21, 2024 End: November 21, 2024 Dr. Nataly Thorpe DO Referring Provider Active Start: November 21, 2024 End: November 21, 2024 DIVINA Rodas Attending Provider Active Sta rt: November 21, 2024 End: November 21, 2024 Care Team (unrecognized sect ion and content) Care Team Personnel Name: NATALY THORPE DO Position: P4 Physician - Primary Care Med Service: Active Provider Member Role: Primary Care Physician Address: Address: [address] [place] [id number] [place] [address] Care Team Related Persons Name: ABEL GOMESH Address: Home [address] [place], [place] [phone] [place] Name: SHIRA PATRICK Address: Home [address] [place], [place] [phone] Care Team Personnel Name: NATALY THORPE DO Position: P4 Physician - Primary Care Member Role: Primary Care Physician Address: Address: [address] [place] [address] Care Team Related Persons Name: ABEL GOMESH Address: Home [address] [place], [place] [id number] Name: GOMES PATRICK Address: Home [address] [place], [place] [phone] [place] Care Team Personnel Name: NATALY THORPE DO Position: P4 Physician - Primary Care Member Role: Primary Care Physician Address: Address: [address] [place] [id number] Care Team Related Persons Name: PATRICK GOMES Address: Home [address] [place], [place] [id number] Name: PATRICK GOMES Address: Home [address] [place], [place] [id number] [place] Source Comments (unrecognize d section and content) In the event this informatio n is protected by the Federal Confidentiality of Alcohol and Drug Abuse Patient Records regulations: The Federal rules restrict any use of the information to criminally investigate or prosecute any alcohol or drug abuse patient.[facility] the event this information is protected by the Federal Confidentiality of Alcohol and Drug Abuse Patient Records regulations: The Federal rules restrict any use of the information to criminally investigate or prosecute any alcohol or drug abuse patient.[facility] HospitalIn the event this information is protected by the Federal Confidentiality of Alcohol and Drug Abuse Patient Records regulations: The Federal rules restrict any use of the information to criminally investigate or prosecute any alcohol or drug abuse patient.[facility] Hospital[facility] the event this information is protected by the Federal Confidentiality of Alcohol and Drug Abuse Patient Records regulations: The Federal rules restrict any use of the information to criminally investigate or prosecute any alcohol or drug abuse patient.[facility] Hospital[facility] the event this information is protected by the Federal Confidentiality of Alcohol and Drug Abuse Patient Records regulations: The Federal rules restrict any use of the information to criminally investigate or prosecute any alcohol or drug abuse patient.[facility] Reason for Visit (unrecogniz ed section and content) Reason Comments Vomiting ST x1 day Reason Comments right pointer finger injury Poked by a c rab leg. Swollen. Stinging. Tingling. Reason Comments Viral Syndrome Stuffy nose fever so re throat symptoms started last night. Patient stated fever is 99.8. Reason Comments Viral Syndrome Still has temp, coug darby, INFORMATION SOURCE (unrecogn ized section and content) DATE CREATED AUTHOR 05/26/2023 [facility] DATE CREATED AUTHOR AUTHOR'S ORGANIZ ATION 02/25/2024 [facility] ([place]) DATE CREATED AUTHOR AUTHOR'S ORGANIZ ATION 08/04/2024 [facility] DATE CREATED AUTHOR AUTHOR'S ORGANIZ ATION 11/29/2024 [facility] DATE CREATED AUTHOR AUTHOR'S ORGANIZ ATION 03/09/2025 [facility] DATE CREATED AUTHOR AUTHOR'S ORGANIZ ATION 04/30/[address] [facility] Goals (unrecognized section and content) Goals may be documented in a n alternate section FOR RECORDS PERTAINING TO PATIENTS WHO ARE OR HAVE BEEN ENROLLED IN A CHEMICAL DEPENDENCY/SUBSTANCEABUSE PROGRAM, SOME INFORMATION MAY BE OMITTED. This clinical summary was aggregated from multiple sources. Caution should be exercised in using it in the provision of clinical care. This summary normalizes information from multiple sources, and as a consequence, information in this document may materially change the coding, format and clinical context of patient data. In addition, data may be omitted in some cases. CLINICAL DECISIONS SHOULD BE BASED ON THE PRIMARY CLINICAL RECORDS. [facility] [employer] [facility]. provides no warranty or guarantee of the accuracy or completeness of information in this document.
[2025-06-05 21:14] VITALS: PULSE 91; RESP 14; O2SAT 100
[2025-06-05 21:21] LABS: Internal QC Validated? YES +Cl - CLEAR BKGD; Record Kit Lot#, Mono 16251077
[2025-06-05 22:21] VITALS: PULSE 98; RESP 16; TEMP 36.6; O2SAT 96
--- NOTE | 2025-06-05 23:33 | EDS_ITS ---
HPI History of Present Illness Chief Complaint: Sore Throat Narrative Narrative: Patient is a 19-year-old female presenting to the emergency department for sore throat for 2-3 weeks. Past medical history of POTS. Patient states that she went to urgent care and was on a Z-David for 4 days. She states that she had no improvement in her symptoms so she went back to urgent care today and they sent her here for evaluation. Reportedly she had a strep test done that was -4 days ago. She endorses chills and dry cough. Denies fever, chest pain, shortness of breath, GI symptoms. Denies anyone sick around her. Has been taking Tylenol for symptomatic control. [facility] Medical History Seizures Home Medications ?Medication ?Instructions ?Recorded ?Last Taken ?Type fludrocortisone 0.1 mg tablet 0.1 mg PO 3XW 10/29/24 U nknown History melatonin 5 mg capsule mg PO 10/29/24 Unknown Histo ry Allergy/AdvReac Type Severity Reaction Status Date / Time coconut Allergy itchy Verified 06/05/25 19:17 Food Allergies: Uncoded Allergy itchy Verified 06/05/25 19:17 Family History Brother No problems noted. Mother Diabetes Other Heart disease Social History Smoking Status: Never smoker ROS ROS ED ROS Narrative see HPI EXAM Physical Exam Narrative Exam Narrative: Vital signs: Reviewed General: Alert and orientedx3. No acute distress. Well appearing, nontoxic. HEENT: Head is normocephalic and atraumatic, sinuses nontender, pupils equal round and reactive. Nares are patent. Posterior oropharynx with some mild erythema and mild enlargement of the tonsils. There is exudate bilaterally. There is no evidence of peritonsillar abscess. Uvula is midline with no swelling. Tongue is midline with no elevation, soft palate has no bogginess. Moist mucous membranes. Neck: Supple without lymphadenopathy nontender Cardiovascular: Regular rate and rhythm, no murmurs. No rubs or gallops. Normal S1 and S2 Respiratory: Clear to auscultation bilaterally. No wheezes, rales, rhonchi Abdominal: Soft and nontender. Normal bowel sounds. No guarding or rebound. Nonsurgical abdomen Extremities: No tenderness. No bruising. Normal range of motion. Normal sensation. Skin: No rash or redness. The rest of the physical exam is unremarkable Const Vital Signs: 06/05/25 19:15 06/05/25 21:14 06/05/25 22:21 Temperature 98.2 F 97.9 F Temperature Source Temporal Pulse Rate 100 91 98 Respiratory Rate 18 14 16 Blood Pressure 127/90 H Blood Pressure Mean 102 Pulse Ox 99 100 96 Oxygen Delivery Method Room Air Room Air MDM MDM MDM Narrative Medical decision making narrative: Patient is a 19-year-old female presenting to the emergency department for a sore throat for 3 weeks. Patient was seen and examined. Vitals are stable. Patient resting in bed comfortably no acute distress. Patient given Toradol IM for symptomatic control. Given the patient's length of symptoms, strep and Monospot test were ordered. The strep test was negative. Monotest positive. Updated patient and friend at bedside. Explained how this was likely transmitted by saliva and to avoid any contact sports due to spleen involvement. Supportive care measures were discussed with the patient including Tylenol and Motrin and fluids. Explained that she would have multiple weeks of symptoms. Encouraged follow-up with primary care doctor soon as possible and verify that she has a primary care doctor to follow-up with. Patient discharged from the Emergency Department. I do not feel that the patient's evaluation reveals any acute reason for admission at this time. I instructed them to either follow-up with their primary care physician or promptly return to the Emergency Department for reevaluation should symptoms worsen or new symptoms develop. I explained what symptoms would indicate the need to return to the emergency department. Shared decision making was used. The patient voiced understanding of the treatment plan and is agreeable with it. Clinical impression Infectious mononucleosis History & Record Review Discussion w/independent historian: Patient and Friend Lab Data Attestation: I reviewed the patient's lab results. Labs: Laboratory Results - last 24 hr 06/05/25 20:36 [employer]os[employer] POSITIVE H Discharge Plan Triage Chief Complaint: Sore Throat ED Provider: Prema Lizarraga Dx/Rx/DC Orders Clinical Impression: Infectious mononucleosis Instructions: ED Mononucleosis Prescriptions: No Action melatonin 5 mg capsule PO fludrocortisone 0.1 mg tablet 0.1 mg PO 3XW Stand Alone Forms: ED Work / School Excuse Primary Care Provider: Michael Alexandre Referrals: Michael Alexandre DO [Primary Care Provider, Family Practice] - As soon as possible Activity Restrictions/Additional Instructions: Follow-up with your primary care doctor soon as possible. Do not share drinks or food with anyone. Do not play any contact sports until follow up with your primary care doctor as you can rupture your spleen. Your evaluation in the Emergency Department did not reveal any acute reason for admission. However, I want to emphasize that you may be early in the course of a disease process or illness even if it is not present. For this reason you should follow-up within 24 hours for reevaluation with either your primary care physician or if necessary back here in the Emergency Department. You should return to the Emergency Department immediately if your symptoms worsen or new symptoms develop. Print Language: Slovenian Disposition Disposition: Home, Self Care Discharge Date/Time: 06/05/25 22:27
== END 2025-06-05 22:27 | disposition home or self-care (01) ==
PROVIDERS: Emergency Provider Student in an Organized Health Care Education/Training Program; PCP Preventive Medicine Occupational Medicine; Visit Provider Student in an Organized Health Care Education/Training Program
DX: B27.90 Infectious mononucleosis, unspecified without complication (principal)
CPT/HCPCS: 86308; 87651; 96372; 99282